=== PATIENT | female | born 1960 | race African-American/Black ===

== ENCOUNTER 2017-02-12 01:42 | Emergency (ER) | payer OTHER ==
[~2017-02-12] VITALS: Ht 165.1 cm; Wt 103.4 kg
[2017-02-12 04:14] VITALS: BP 122/86
--- NOTE | 2017-02-12 04:15 | ED GENERAL ADULT ---
History of Present Illness General Chief Complaint: General Adult Stated Complaint: HIGH BLOOD PER PT Source: patient, old records, EMS Exam Limitations: no limitations Vital Signs & Intake/Output Vital Signs & Intake/Output Vital Signs Date Time Temp Pulse Resp B/P B/P Pulse O2 O2 Flow FiO2 Mean Ox Delivery Rate 02/12 0414 96.8 78 17 122/86 97 Room Air 02/12 0145 97.2 87 20 90/68 97 Room Air Allergies Coded Allergies: lithium (Intermediate, "OUT OF MY MIND" 02/12/17) ibuprofen (Mild, HIVES 02/12/17) Triage Note: PT BIBA FROM HOME. PER EMS, PT STATES SHE HAD A PIECE OF CAKE TONIGHT, CHECKED HER BLOOD SUGAR AND HER GLUCOMETER READ ABOVE 600. PT STATES SHE TRIED TO INJECT HERSELF WITH 56 UNITS OF LEVEMIR, BUT THE NEEDLE BECAME BENT AND SHE WAS UNSURE IF SHE RECEIVED THE INSULIN, SO SHE SUCCESSFULLY INJECTED 56 UNITS AGAIN. PT STATES SHE RECHEKED BS AFTER INSULIN ADMINISTRATION AND GLUCOMETER READ 163 AND THAT IS WHEN SHE DECIDED TO CALL EMS. PT ALERT AND ORIENTED ON ARRIVAL TO ED. BS 144 ON ARRIVAL. PT COMPLAINS OF ABDOMINAL PAIN X A FEW DAYS. Triage Nurses Notes Reviewed? yes Onset: Afternoon Duration: hour(s): Timing: recent history Injury Environment: home Severity: moderate Modifying Factors: Improves With: eating. LMP (ages 10-50): post menopausal : No Patient currently breastfeeds: No HPI: 10 hours prior to admission patient ate cake and felt like her blood sugar was elevated so she injected herself with 56 units of Levemir. She felt that the injection was done inaccurately so she repeated the injection. Several hours prior to admission she registered high blood sugars on 2 different occasions. She ate and drank juice then called EMS. Blood sugar on EMS arrival was 160, 144 in the ED. She denies fever chills nausea vomiting diarrhea abdominal pain chest pain shortness of breath headache dysuria rash bleeding. Past History Travel History Traveled to [place] past 21 day No Medical History Any Pertinent Medical History? see below for history Cardiovascular: hypertension Endocrine: diabetes Surgical History Surgical History: non-contributory Psychosocial History What is your primary language Greenlandic Tobacco Use: Never used Family History Hx Contributory? No Review of Systems Review of Systems Constitutional: Reports: no symptoms. EENTM: Reports: no symptoms. Respiratory: Reports: no symptoms. Cardiovascular: Reports: no symptoms. GI: Reports: no symptoms. Genitourinary: Reports: no symptoms. Musculoskeletal: Reports: no symptoms. Skin: Reports: no symptoms. Neurological/Psychological: Reports: no symptoms. Hematologic/Endocrine: Reports: no symptoms. Immunologic/Allergic: Reports: no symptoms. All Other Systems: Reviewed and Negative Physical Exam Physical Exam General Appearance: well developed/nourished, alert, awake, anxious, mild distress Head: atraumatic, normal appearance Eyes: Bilateral: normal appearance, PERRL, EOMI. Ears, Nose, Throat: normal pharynx, normal ENT inspection Neck: normal inspection, supple, full range of motion, no midline tenderness Respiratory: normal breath sounds, chest non-tender, no respiratory distress, quiet respiration, lungs clear Cardiovascular: regular rate/rhythm, normal peripheral pulses, norml femoral pulses equa Peripheral Pulses: 4+ carotid (R), 4+ carotid (L) Gastrointestinal: normal bowel sounds, soft, non-tender, no organomegaly Back: normal inspection, normal range of motion Extremities: normal inspection, normal capillary refill, normal range of motion, no edema Neurologic/Psych: no motor/sensory deficits, awake, alert, oriented x 3, normal gait, normal mood/affect Reflexes: 2+: bicep (R), bicep (L). Skin: intact, normal color, warm/dry Lymphatic: no anterior cervical drew Core Measures ACS in differential dx? No CVA/TIA Diagnosis: No Severe Sepsis Present: No Septic Shock Present: No Progress Differential Diagnoses I considered the following diagnoses in my evaluation of the patient: Hyperglycemia hypoglycemia Plan of Care: observation frequent FBS checks Initial ED EKG: none Departure Departure Time of Disposition: 414 Disposition: HOME OR SELF CARE Condition: Stable Clinical Impression Primary Impression: Overdose of insulin Qualifiers: Encounter type: initial encounter Injury intent: accidental or unintentional Qualified Code: T38.3X1A - Poisoning by insulin and oral hypoglycemic [antidiabetic] drugs, accidental (unintentional), initial encounter Referrals: UNKNOWN (PCP/Family) Departure Forms: Customer Survey General Discharge Information Critical Care Note Critical Care Note Critical Care Time: non-applicable
== END 2017-02-12 04:33 ==
LOC: ERH 01:42
DX: T38.3X1A Poisoning by insulin and oral hypoglycemic [antidiabetic] drugs, accidental (unintentional), initial encounter (principal)

== ENCOUNTER 2017-11-05 15:21 | Inpatient (IN) | payer OTHER ==
[~2017-11-05] VITALS: Ht 165.1 cm; Wt 107.9 kg
[~2017-11-05 15:21] MED LIST: AMLODIPINE BESY10 M1 PO; CLONAZEPAM0.5 M2 PO; FIBER625 MG PO; HUMALOG KW100 UNIT/1 SC; HYDROCHLOROTHIA50 M1 PO; INVOKANA100 M1 PO; LEVEMIR100 UNIT/1 SC; METFORMIN HCL500 M3 PO; NITRO-DUR1 EACH TOP; PERCOCET 5-3251 EACH PO; PRESERVISION A1 EAC1 PO; PROBIOTIC1 EACH PO; SEROQUEL100 M1 PO; SEROQUEL200 M1 PO; SIMVASTATIN20 M2 PO; TRAZODONE HCL100 M1 PO; VITAMIN C500 M6 PO
--- NOTE | 2017-11-05 15:41 | ED NEURO DEFICIT/STROKE ---
History of Present Illness General Chief Complaint: General Adult Stated Complaint: BIBA FOR FEELING OFF BALANCE AND SLURRED SPEECH Source: patient Vital Signs & Intake/Output Vital Signs & Intake/Output Vital Signs Date Time Temp Pulse Resp B/P B/P Pulse O2 O2 Flow FiO2 Mean Ox Delivery Rate 11/05 1636 Room Air 11/05 1526 98.3 94 18 178/99 99 Room Air Allergies Coded Allergies: lithium (Intermediate, "OUT OF MY MIND" 02/12/17) ibuprofen (Mild, HIVES 02/12/17) adhesive tape (PAPER TAPE CAUSES A RASH - OKAY WITH OTHER TAPES PER PT 05/23/17 ) Reconcile Medications Amlodipine Besylate (Unknown Strength) TABLET (Unknown Dose) PO DAILY HEART ( Reported) Ascorbate Calcium (Vitamin C) (Unknown Strength) TABLET (Unknown Dose) PO DAILY SUPPLEMENT (Reported) Canagliflozin (Invokana) (Unknown Strength) TABLET (Unknown Dose) PO TID DM ( Reported) Clonazepam 0.5 MG TABLET 1 TAB PO TID ANXIETY (Reported) Hydrochlorothiazide 50 MG TABLET 1 TAB PO DAILY BP (Reported) Insulin Detemir (Levemir) 100 UNIT/ML VIAL 46 UNITS SC QPM DM (Reported) Insulin Lispro (Humalog Kwikpen U-100) (Unknown Strength) INSULN.PEN 12 UNITS SC TIDAC DM (Reported) Lactobacillus Acidophilus (Probiotic) (Unknown Strength) CAPSULE (Unknown Dose ) PO DAILY SUPPLEMENT (Reported) Metformin HCl (Unknown Strength) TABLET (Unknown Dose) PO DAILY DM (Reported) Nitroglycerin (Nitro-Dur) 0.2 MG/HOUR PATCH.TD24 1 PATCH TOP DAILY HEART ( Reported) Oxycodone HCl/Acetaminophen (Percocet 5-325 MG Tablet) 5 MG-325 MG TABLET 1-2 TAB PO Q6P PRN PAIN Oxycodone HCl/Acetaminophen (Percocet 5-325 MG Tablet) 5 MG-325 MG TABLET 1 TAB PO BID PRN PAIN Polycarbophil (Fiber) (Unknown Strength) TABLET (Unknown Dose) PO DAILY SUPPLEMENT (Reported) Quetiapine Fumarate (Seroquel) 100 MG TABLET 1 TAB PO BID MENTAL HEALTH ( Reported) Quetiapine Fumarate (Seroquel) 200 MG TABLET 2 TAB PO QHS MENTAL HEALTH ( Reported) Simvastatin (Simvastatin*) (Unknown Strength) TABLET (Unknown Dose) PO QPM CHOLESTEROL (Reported) Trazodone HCl 100 MG TABLET 2 TAB PO QHS MENTAL HEALTH AND SLEEP (Reported) Vit C/E/Zn/Coppr/Lutein/Zeaxan (Preservision Areds 2 Softgel) 250-200-40 CAPSULE 1 CAP PO BID SUPPLEMENT (Reported) Triage Note: PT BIBA FROM HER MD's OFFICE WITH C/O SLURRED SPEECH AND DIZZINESS SINCE WEDNESDAY. PT STATES SHE AWOKE ON WEDNESDAY FEELING LIGHTHEADED AND NAUSEATED. SHE HAD A REGULAR MD APPOINTMENT ON THAT DAY BUT DID NOT ADDRESS IT WITH HIM SHE THOUGHT IT WOULD PASS. SX GRADUALLY WORSENING. PT ARRIVES TODAY WITH SLOW, SLURRED SPEECH, WORD FINDING, SLOW, UNSTEADY GAIT. HYPERTENSIVE. OTHER VSS. IV ACCESS PLACED IN FIELD Past History Travel History Traveled to [place] past 21 day No Medical History Neurological: CVA EENT: NONE Cardiovascular: hypertension Respiratory: obstructive sleep apnea Gastrointestinal: NONE Hepatic: NONE Endocrine: diabetes Surgical History Surgical History: non-contributory Psychosocial History What is your primary language Korean Tobacco Use: Current Daily Use Daily Tobacco Use Amount/Type: => 5 Cigarettes daily ETOH Use: denies use Progress Plan of Care: Orders Procedure Date/time Status Consistent Carbohydrate 1 11/06 B Active ED Holding Orders 11/05 174 Active Admit to inpatient 11/05 174 Active Vital Signs 11/05 174 Active Code Status 11/05 174 Active Patient Data 11/05 174 Active EKG 11/05 1554 Active Telemetry/Vice President Compliance 11/05 1541 Active TROPONIN LEVEL 11/05 1541 Complete COMPREHENSIVE METABOLIC PANEL 11/05 1541 Complete CBC WITHOUT DIFFERENTIAL 11/05 1541 Complete Laboratory Tests 11/05/17 1610: Anion Gap 12, Estimated GFR 57 L, BUN/Creatinine Ratio 13.0, Glucose 145 H, Calcium 10.1, Total Bilirubin 0.3, AST 12 L, ALT 24, Alkaline Phosphatase 67, Troponin I < 0.01, Total Protein 7.4, Albumin 4.5, Globulin 2.9, Albumin/ Globulin Ratio 1.6, CBC w Diff NO MAN DIFF REQ, RBC 4.41, MCV 76.2 L, MCH 24.3 L, MCHC 31.9 L, RDW 14.9 H, MPV 8.8, Gran % 70.9, Lymphocytes % 22.0, Monocytes % 4.8, Eosinophils % 2.0, Basophils % 0.3, Absolute Granulocytes 7.8 H, Absolute Lymphocytes 2.4, Absolute Monocytes 0.5, Absolute Eosinophils 0.2, Absolute Basophils 0 Diagnostic Imaging: Viewed by Me: CT Scan, Ultrasound. Discussed w/RAD: CT Scan, Ultrasound. Radiology Impression: PATIENT: ROYA HAAS PRESENT AGE: 57 PATIENT ACCOUNT NO: [id number] : 60 LOCATION: [facility] ORDERING PHYSICIAN: Verna Doss MD SERVICE DATE: 11/05/17 EXAM TYPE: US - [id number] DOPPLER EXAMINATION: DUPLEX BILATERAL CAROTID ULTRASOUND CLINICAL INFORMATION: Syncope with slurred speech. COMPARISON: None. TECHNIQUE: Duplex bilateral carotid US was performed using real-time ultrasound and Doppler techniques (integrating B-mode 2D vascular images, Doppler spectral analysis and color flow Doppler imaging). These techniques were utilized to interrogate the extracranial carotid and vertebral arteries bilaterally. The degree of stenosis is based off criteria similar to NASCET. FINDINGS: No plaque is seen at the carotid bifurcations or within the internal carotid arteries. All velocities are within normal limits. ADDITIONAL FINDINGS: The vertebral arteries show antegrade flow. The external carotid arteries show no significant stenosis. Subclavian artery waveforms are normal. Intimal medial thickness in the distal common carotid artery on the right is 1.4 mm and on the left is 1.7 mm. IMPRESSION: No evidence of a hemodynamically significant stenosis involving the internal carotid arteries. There is diffuse intimal thickening. DICTATED BY: Tim Rojas MD DATE/TIME DICTATED:11/05/171619 BANKING SPECIALIST:MARY GRACE DATE/TIME TRANSCRIBED:11/05/171619 CONFIDENTIAL, DO NOT COPY WITHOUT APPROPRIATE AUTHORIZATION. <Electronically signed in Other Vendor System> SIGNED BY: Tim Rojas MD 11/05/17 1625, PATIENT: ROYA HAAS PRESENT AGE: 57 PATIENT ACCOUNT NO: [id number] : 60 LOCATION: [facility] ORDERING PHYSICIAN: Verna Doss MD SERVICE DATE: 11/05/171540 EXAM TYPE: CAT - CT HEAD WO IV CONTRAST EXAMINATION: CT HEAD WITHOUT CONTRAST CLINICAL INFORMATION: Slurred speech. Off balance for 3 days. COMPARISON: None TECHNIQUE: Contiguous axial imaging was performed from the skull base to vertex without intravenous administration of contrast. DLP: 619.58 mGy-cm FINDINGS: Small lacunar infarcts in the bilateral thalamic regions. Small lacunar infarct in the central right cerebellum. There is atrophy with prominence of the ventricles and the sulci and hypodensity of the periventricular white matter due to chronic small vessel ischemic disease. There is vascular calcifications of the internal carotid arteries bilaterally. There is no evidence of acute intracranial hemorrhage or acute territorial infarction. No abnormal mass effect or midline shift is seen. Gonzalez to white matter differentiation is well preserved. No extra-axial fluid collections are identified. The osseous structures and soft tissues are normal. The mastoid air cells and visualized portions of the paranasal sinuses are well aerated. IMPRESSION: No acute intracranial pathology. There is atrophy and chronic small vessel ischemic disease. There are old lacunar infarcts in the right central cerebellum as well as small lacunar thalamic infarcts bilaterally. DICTATED BY: Som Miramontes MD DATE/TIME DICTATED:11/05/171710 BANKING SPECIALIST:MARY GRACE DATE/TIME TRANSCRIBED:11/05/171710 CONFIDENTIAL, DO NOT COPY WITHOUT APPROPRIATE AUTHORIZATION. <Electronically signed in Other Vendor System> SIGNED BY: Som Miramontes MD 11/05/171716 Departure Departure Time of Disposition: 1753 Disposition: STILL A PATIENT Condition: Stable Clinical Impression Primary Impression: CVA (cerebral vascular accident) Referrals: Doris George MD (PCP/Family) Departure Forms: Customer Survey General Discharge Information Admission Note Spoke With: Kirsten Becerra MD Documentation of Exam: Documentation of any treatments & extenuating circumstances including Concerns Regarding Discharge (functional status, medication knowledge or non-compliance, living conditions, etc.) that warrant an admission rather than observation: [ TELE MONITOR, NEURO CHECKS, MRI HEAD, NEUROLOGY CONSULTATION, PT CONSULTATION . PATIENT WITH 3 DAYS OF SLURRED SPEECH AND ATAXIA. SHE HAS FALLEN TWICE IN 3 DAYS. WOULD BE MEDICALLY HARMFUL FOR DISCHARGE AT THIS TIME]
[2017-11-05 16:24] LABS: ABSOLUTE BASOPHIL COUNT 0 /CUMM (0.0-0.2); ABSOLUTE EOSINOPHIL COUNT 0.2 /CUMM (0.0-0.7); ABSOLUTE GRANULOCYTE CT 7.8 /CUMM (1.4-6.5); ABSOLUTE LYMPH COUNT 2.4 /CUMM (1.2-3.4); ABSOLUTE MONOCYTE COUNT 0.5 /CUMM (0.10-0.60); BASOPHIL % 0.3 % (0.0-2.0); GRANULOCYTE % 70.9 % (42.2-75.2); HEMATOCRIT 33.6 % (37-47); MEAN CORPUSCULAR HGB 24.3 PG (27.0-31.0); MEAN CORPUSCULAR HGB CONC 31.9 G/DL (33.0-37.0); MEAN CORPUSCULAR VOLUME 76.2 FL (81.0-99.0); MEAN PLATELET VOLUME 8.8 FL (7.4-10.4); PLATELET COUNT 390 /CUMM (130-400); RBC DISTRIBUTION WIDTH 14.9 % (11.5-14.5); RED BLOOD CELL CT 4.41 /CUMM (4.20-5.40); WHITE BLOOD CELL COUNT 11.1 /CUMM (4.8-10.8)
--- NOTE | 2017-11-05 16:25 | ULTRASOUND REPORT ---
EXAMINATION: DUPLEX BILATERAL CAROTID ULTRASOUND CLINICAL INFORMATION: Syncope with slurred speech. COMPARISON: None. TECHNIQUE: Duplex bilateral carotid US was performed using real-time ultrasound and Doppler techniques (integrating B-mode 2D vascular images, Doppler spectral analysis and color flow Doppler imaging). These techniques were utilized to interrogate the extracranial carotid and vertebral arteries bilaterally. The degree of stenosis is based off criteria similar to NASCET. FINDINGS: No plaque is seen at the carotid bifurcations or within the internal carotid arteries. All velocities are within normal limits. ADDITIONAL FINDINGS: The vertebral arteries show antegrade flow. The external carotid arteries show no significant stenosis. Subclavian artery waveforms are normal. Intimal medial thickness in the distal common carotid artery on the right is 1.4 mm and on the left is 1.7 mm. IMPRESSION: No evidence of a hemodynamically significant stenosis involving the internal carotid arteries. There is diffuse intimal thickening.
--- NOTE | 2017-11-05 17:17 | CT SCAN REPORT ---
EXAMINATION: CT HEAD WITHOUT CONTRAST CLINICAL INFORMATION: Slurred speech. Off balance for 3 days. COMPARISON: None TECHNIQUE: Contiguous axial imaging was performed from the skull base to vertex without intravenous administration of contrast. DLP: 619.58 mGy-cm FINDINGS: Small lacunar infarcts in the bilateral thalamic regions. Small lacunar infarct in the central right cerebellum. There is atrophy with prominence of the ventricles and the sulci and hypodensity of the periventricular white matter due to chronic small vessel ischemic disease. There is vascular calcifications of the internal carotid arteries bilaterally. There is no evidence of acute intracranial hemorrhage or acute territorial infarction. No abnormal mass effect or midline shift is seen. Gonzalez to white matter differentiation is well preserved. No extra-axial fluid collections are identified. The osseous structures and soft tissues are normal. The mastoid air cells and visualized portions of the paranasal sinuses are well aerated. IMPRESSION: No acute intracranial pathology. There is atrophy and chronic small vessel ischemic disease. There are old lacunar infarcts in the right central cerebellum as well as small lacunar thalamic infarcts bilaterally.
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
[2017-11-05 20:24] VITALS: BP 130/100
[2017-11-05] MEDS ORDERED: CLONAZEPAM1 M2 PO (22:27)
[2017-11-06] VITALS: BP 168/98
--- NOTE | 2017-11-06 02:33 | Admission Certification ---
Admission Certification Certification Statement - As attending physician, I certify that at the time of - admission, based on clinical presentation, severity of - symptoms, need for further diagnostic testing and - therapeutic interventions, and risk of adverse outcomes - without in-hospital treatment, in my clinical assessment, - this patient requires an acute hospital stay for a minimum - of two nights or longer. I have also considered psychsocial - factors such as support system, advanced age, financial - issues, cognitive issues, and failed out-patient treatments, - past re-admission history, safety of patient, and lack of - compliance as applicable. Specific rationale supporting this admission is: gait abnormality, suspected CVA
[2017-11-06 07:01] VITALS: BP 140/100
[2017-11-06 08:27] LABS: ABSOLUTE BASOPHIL COUNT 0.1 /CUMM (0.0-0.2); ABSOLUTE EOSINOPHIL COUNT 0.5 /CUMM (0.0-0.7); ABSOLUTE GRANULOCYTE CT 5.6 /CUMM (1.4-6.5); ABSOLUTE LYMPH COUNT 3.7 /CUMM (1.2-3.4); ABSOLUTE MONOCYTE COUNT 0.6 /CUMM (0.10-0.60); BASOPHIL % 0.7 % (0.0-2.0); EOSINOPHIL % 4.4 % (0-5); GRANULOCYTE % 53.5 % (42.2-75.2); HEMATOCRIT 33.8 % (37-47); MEAN CORPUSCULAR HGB 24.3 PG (27.0-31.0); MEAN CORPUSCULAR HGB CONC 31.5 G/DL (33.0-37.0); MEAN CORPUSCULAR VOLUME 77.2 FL (81.0-99.0); MEAN PLATELET VOLUME 9.3 FL (7.4-10.4); PLATELET COUNT 396 /CUMM (130-400); RED BLOOD CELL CT 4.38 /CUMM (4.20-5.40)
--- NOTE | 2017-11-06 08:40 | PN- Housestaff ---
Chucky Borden 11/06/17 0839: Subjective Follow-up For: CVA Subjective: Patient reports persistent blurry vision and BLE weakness. No acute events overnight Review of Systems Constitutional: Reports: see HPI. Objective Last 24 Hrs of Vital Signs/I&O Vital Signs Date Time Temp Pulse Resp B/P B/P Pulse O2 O2 Flow FiO2 Mean Ox Delivery Rate 11/06 1407 98.1 82 18 178/102 96 Room Air 11/06 1034 Room Air 11/06 0701 98.5 78 16 140/100 94 Room Air 11/06 0000 168/98 11/06 2023 98.1 83 18 130/100 97 11/05 1942 98.3 89 18 166/89 99 Room Air Intake & Output 11/06 1600 11/06 0800 11/06 0000 Intake Total 400 480 840 Output Total Balance 400 480 840 Intake, Oral 400 480 840 Patient 241 lb 242 lb Weight Weight Bed scale Measurement Method Physical Exam General Appearance: Alert, Oriented X3, Cooperative HEENT: PERRLA Cardiovascular: Regular Rate, Normal S1, Normal S2, No Murmurs, Gallops, Rubs Lungs: Clear to Auscultation, Normal Air Movement Neurological: Strength at 5/5 X4 Ext, Normal Tone, decreased sensation on LLE Current Medications: Current Medications Sig/Sonia Start time Last Medication Dose Route Stop Time Status Admin Acetaminophen 650 MG Q6P PRN 11/05 2215 AC PO Albuterol Sulfate 2 PUF BID 11/06 2200 AC INH Aspirin Buffered 81 MG DAILY 11/06 1000 AC 11/06 PO 1000 Atorvastatin Calcium 80 MG 1700 11/05 2215 AC 11/06 PO 1718 Budesonide/ 2 PUF BID 11/06 1018 AC 10 Formoterol Fumarate INH 1018 Clonazepam 1 MG BID PRN 11/05 2230 AC 10 PO 11/12 2229 1119 Clopidogrel Bisulfate 75 MG DAILY 11/06 1000 AC 11/06 PO 1000 Enoxaparin Sodium 40 MG DAILY 11/06 1000 AC 11/06 SC 1000 Gabapentin 100 MG Q8 11/05 2300 AC 11/06 PO 1500 Hydrochlorothiazide 50 MG DAILY 11/06 1000 AC 11/06 PO 1000 Insulin Aspart 0 AT BEDTIME 11/06 2200 DC SC Insulin Aspart 0 TIDAC 11/06 0800 DC SC Insulin Aspart 0 TIDAC 11/05 2330 AC SC Insulin Aspart 0 AT BEDTIME 11/05 2330 AC SC Insulin Detemir 23 UNITS AT BEDTIME 11/06 2200 AC SC Insulin Detemir 46 UNITS AT BEDTIME 11/05 2245 DC SC Lactobacillus 1 CAP DAILY 11/06 1000 AC 11/06 Acidophilus PO 1000 Montelukast Sodium 10 MG AT BEDTIME 11/05 2300 AC 11/05 PO 2322 Nicotine 21 MG DAILY 11/06 1000 AC 11/06 TOP 1000 Omeprazole 40 MG DAILY AC 11/06 0700 AC 11/06 PO 0604 Oxycodone/ 1 TAB Q6P PRN 11/05 2215 AC 11/06 Acetaminophen PO 1722 Quetiapine Fumarate 400 MG AT BEDTIME 11/05 2245 AC 11/05 PO 232 Quetiapine Fumarate 100 MG BID 11/05 2231 AC 11/06 PO 1000 Trazodone HCl 200 MG .STK-MED ONE 11/05 233 DC PO 11/05 233 Trazodone HCl 200 MG AT BEDTIME 11/05 233 AC 11/05 PO 2336 Last 24 Hrs of Lab/Gal Results Last 24 Hrs of Labs/Mics: Laboratory Tests 11/06/17 0655: Triglycerides 217 H, Cholesterol 124, LDL Cholesterol, Calc 38 L, HDL Cholesterol 43, Cholesterol/HDL Ratio 3, CBC w Diff NO MAN DIFF REQ, RBC 4.38, MCV 77.2 L, MCH 24.3 L, MCHC 31.5 L, RDW 15.0 H, MPV 9.3, Gran % 53.5, Lymphocytes % 35.7, Monocytes % 5.7, Eosinophils % 4.4, Basophils % 0.7, Absolute Granulocytes 5.6, Absolute Lymphocytes 3.7 H, Absolute Monocytes 0.6, Absolute Eosinophils 0.5, Absolute Basophils 0.1 11/06/17 0045: Troponin I < 0.01 Assessment/Plan Assessment: 57-year-old female with past medical history of hypertension, coronary artery disease status post stent, myocardial infarction, obstructive sleep apnea, type 2 diabetes on insulin, CVA, hyperlipidemia, was sent from her primary care physician office with complaints of slurring of speech, unsteady gait and word finding difficulty since past 3 days. Problem 1. Slurring of speech dizziness and gait instability concerning for CVA 2. Multifactorial gait disorder 3. Hypertension 4. Diabetes Mellitus 5. History of coronary artery Plan MRI demonstrated evidence mo acute territorial infarct or hemorrhage. Neurology recommendations appreciated TRC/nebs when necessary Continue atorvastatin 80 mg and Plavix Code-DNR/DNI. Patient has a living will Diet-heart healthy diet DVT prophylaxis-Lovenox Problem List: 1. CVA (cerebral vascular accident) Pain Ratin Pain Location: NA Pain Goal: Remain pain free Pain Plan: NA Tomorrow's Labs & Rationales: BEP, CBC Charla Owens 11/06/17 1419: Attending MD Review Statement Attending Statement Attending MD Statement: examined this patient, discuss w/resident/PA/TOOL DESIGN ENGINEER, agreed w/resident/PA/TOOL DESIGN ENGINEER, reviewed EMR data (avail), discussed with nursing Attending Assessment/Plan: TIA/ Stroke- MRI brain done today shows- "There are chronic cortical infarcts involving the right frontal lobe and the right cerebellar hemisphere. There is chronic small vessel ischemic changes are also visualized within the periventricular white matter. No evidence of acute territorial infarct or hemorrhage." Cont on asa and plavix. f/u on neuro recommendations and will f/u on echo results.
[2017-11-06 10:34] LABS: WHITE BLOOD CELL COUNT 10.4 /CUMM (4.8-10.8)
--- NOTE | 2017-11-06 12:40 | MRI REPORT ---
EXAMINATION: MR BRAIN WITHOUT CONTRAST CLINICAL INFORMATION: Slurred speech. Gait imbalance. History of cerebrovascular accident. COMPARISON: CT scan of the head 11/05/2017. TECHNIQUE: MRI of the brain without contrast was obtained using routine sequences. FINDINGS: There are chronic changes of an old infarct within the right superior frontal gyrus and the right cerebral hemisphere. Numerous chronic small vessel ischemic changes also visualized throughout the periventricular white matter. There is no acute territorial infarct. No pathological magnetic susceptibility artifact. Intracranial vascular flow voids are grossly maintained. There is no intracranial mass effect or midline shift. No abnormal extra-axial collection. Lateral and third ventricles are normal. No hydrocephalus. Midline structures including the cervicomedullary junction are normal. Bone marrow signal intensity is normal. There is no mastoid or middle ear effusion. Visualized paranasal sinuses are well-aerated. Globes and orbits are symmetric. IMPRESSION: There are chronic cortical infarcts involving the right frontal lobe and the right cerebellar hemisphere. There is chronic small vessel ischemic changes are also visualized within the periventricular white matter. No evidence of acute territorial infarct or hemorrhage.
[2017-11-06 14:07] VITALS: BP 178/102
--- NOTE | 2017-11-06 14:51 | Cons- Neurology ---
General Information and HPI Consulting Request Date of Consult: 11/06/17 Requested By: Mani Arana MD History of Present Illness: 57-year-old female with history of prior CVA and residual speech disturbance, largely right sided weakness and imbalance for which she uses a walker or a cane. Approximately one week ago she lost her balance and fell forward, injuring her knee. She was seen thereafter by her orthopedist. She informs me that a knee replacement has been recommended. However, she also states that her speech has been somewhat worse and she ultimately presented to the [facility] for further evaluation. CT scan of the head showed chronic infarcts in the cerebellum and thalami bilaterally. A confirmatory MRI showed a chronic right cerebellar infarct as well as a right frontal infarct which was old. There were no acute abnormalities on diffusion-weighted studies. There is been no fever, chills or rash. Allergies/Medications Allergies: Coded Allergies: lithium (Intermediate, "OUT OF MY MIND" 02/12/17) ibuprofen (Mild, HIVES 02/12/17) adhesive tape (PAPER TAPE CAUSES A RASH - OKAY WITH OTHER TAPES PER PT 05/23/17 ) divalproex sodium (From DEPAKOTE) (HALLUCINATE 11/05/17) tramadol (RASH 11/05/17) Home Med List: Amlodipine Besylate (Unknown Strength) TABLET (Unknown Dose) PO DAILY HEART ( Reported) Ascorbate Calcium (Vitamin C) (Unknown Strength) TABLET (Unknown Dose) PO DAILY SUPPLEMENT (Reported) Canagliflozin (Invokana) (Unknown Strength) TABLET (Unknown Dose) PO TID DM ( Reported) Clonazepam 1 MG TABLET 1 TAB PO BIDP PRN Anxiety (Reported) Hydrochlorothiazide 50 MG TABLET 1 TAB PO DAILY BP (Reported) Insulin Detemir (Levemir) 100 UNIT/ML VIAL 46 UNITS SC QPM DM (Reported) Insulin Lispro (Humalog Kwikpen U-100) (Unknown Strength) INSULN.PEN 12 UNITS SC TIDAC DM (Reported) Lactobacillus Acidophilus (Probiotic) (Unknown Strength) CAPSULE (Unknown Dose ) PO DAILY SUPPLEMENT (Reported) Metformin HCl (Unknown Strength) TABLET (Unknown Dose) PO DAILY DM (Reported) Nitroglycerin (Nitro-Dur) 0.2 MG/HOUR PATCH.TD24 1 PATCH TOP DAILY HEART ( Reported) Oxycodone HCl/Acetaminophen (Percocet 5-325 MG Tablet) 5 MG-325 MG TABLET 1-2 TAB PO Q6P PRN PAIN Oxycodone HCl/Acetaminophen (Percocet 5-325 MG Tablet) 5 MG-325 MG TABLET 1 TAB PO BID PRN PAIN Polycarbophil (Fiber) (Unknown Strength) TABLET (Unknown Dose) PO DAILY SUPPLEMENT (Reported) Quetiapine Fumarate (Seroquel) 100 MG TABLET 1 TAB PO BID MENTAL HEALTH ( Reported) Quetiapine Fumarate (Seroquel) 200 MG TABLET 2 TAB PO QHS MENTAL HEALTH ( Reported) Simvastatin (Simvastatin*) (Unknown Strength) TABLET (Unknown Dose) PO QPM CHOLESTEROL (Reported) Trazodone HCl 100 MG TABLET 2 TAB PO QHS MENTAL HEALTH AND SLEEP (Reported) Vit C/E/Zn/Coppr/Lutein/Zeaxan (Preservision Areds 2 Softgel) 250-200-40 CAPSULE 1 CAP PO BID SUPPLEMENT (Reported) Review of Systems Review of Systems: Notable for knee pain, imbalance, slurring of speech and some right sided weakness. There is been no dysphagia, chest pain, shortness of breath, vertigo, bleeding abnormality, weight loss, fever or chills. 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 FATHER (History of cancer). Psychosocial History Where Do You Live? Home Who Do You Live With? self Services at Home: None Primary Language: Italian Smoking Status: Current Everyday Smoker ETOH Use: denies use Illicit Drug Use: denies illicit drug use Functional Ability ADLs Independent: dressing, eating, toileting, bathing. Ambulation: cane IADLs Independent: shopping, housework, finances, food prep, telephone, transportation , medication admin. Exam & Diagnostic Data Vital Signs and I&O Vital Signs Date Time Temp Pulse Resp B/P B/P Pulse O2 O2 Flow FiO2 Mean Ox Delivery Rate 11/06 1407 98.1 82 18 178/102 96 Room Air 11/06 1034 Room Air 11/06 0701 98.5 78 16 140/100 94 Room Air 11/06 0000 168/98 11/05 2024 98.1 83 18 130/100 97 11/05 1942 98.3 89 18 166/89 99 Room Air 11/05 1756 98.3 83 18 162/90 100 Room Air 11/05 1636 Room Air 11/05 1526 98.3 94 18 178/99 99 Room Air Intake & Output 11/06 1600 11/06 0800 11/06 0000 Intake Total 480 840 Output Total Balance 480 840 Intake, Oral 480 840 Patient 241 lb 242 lb Weight Weight Bed scale Measurement Method Middle-aged female awake and alert, sitting up in a chair, in no acute distress. Higher cortical function was grossly intact. Speech was fluent. Pupils are equal. Extraocular movements were full. There was no field cut. Minor right facial asymmetry and minimal dysarthria was noted. There was no drift of the upper extremities or gross lateralizing weakness. Deep tendon reflexes were symmetric. Plantar responses were flexor. Fine finger movements were performed adequately. There was no ataxia on [id number] testing. Gait was not evaluated. Carotid ultrasound showed no significant stenoses. Assessment/Plan Assessment: It appears that Ms. Bolden is demonstrating recrudescence of prior symptoms relative to old stroke. This may be precipitated by trauma, medications such as narcotic analgesics and/or soporific/tranquilizing agents. Imaging shows no evidence of acute stroke. She presented 3 days after symptom onset; one would think that scans would be positive at that time. Recommendations: The patient states that she had been on Plavix. This was not listed in her list of home medications. If so, she should be continued on an antiplatelet agent and if not already on board, a statin would also be indicated for secondary stroke prevention. She should be seen by physical and occupational therapy. No further neurodiagnostic studies are currently anticipated. We will be able to follow on a when necessary basis. Please feel free to call with any further questions. Consult Acknowledgment - Thank you for your consult request.
[2017-11-06 22:54] VITALS: BP 160/98
[2017-11-07 06:49] VITALS: BP 148/74
[2017-11-07 07:52] LABS: ABSOLUTE BASOPHIL COUNT 0.1 /CUMM (0.0-0.2); ABSOLUTE EOSINOPHIL COUNT 0.4 /CUMM (0.0-0.7); ABSOLUTE GRANULOCYTE CT 5.8 /CUMM (1.4-6.5); ABSOLUTE LYMPH COUNT 3.4 /CUMM (1.2-3.4); ABSOLUTE MONOCYTE COUNT 0.6 /CUMM (0.10-0.60); BASOPHIL % 0.5 % (0.0-2.0); EOSINOPHIL % 4.3 % (0-5); GRANULOCYTE % 56.4 % (42.2-75.2); HEMATOCRIT 33.6 % (37-47); MEAN CORPUSCULAR HGB 24.4 PG (27.0-31.0); MEAN CORPUSCULAR HGB CONC 31.8 G/DL (33.0-37.0); MEAN CORPUSCULAR VOLUME 76.7 FL (81.0-99.0); MEAN PLATELET VOLUME 8.9 FL (7.4-10.4); PLATELET COUNT 389 /CUMM (130-400); RBC DISTRIBUTION WIDTH 14.8 % (11.5-14.5); RED BLOOD CELL CT 4.38 /CUMM (4.20-5.40); WHITE BLOOD CELL COUNT 10.3 /CUMM (4.8-10.8)
[2017-11-07 15:15] VITALS: BP 168/102
--- NOTE | 2017-11-07 15:25 | PN- Att Addend ---
Attending MD Review Statement Attending Statement Attending MD Statement: examined this patient, discuss w/resident/PA/OWNER MANAGER, agreed w/resident/PA/OWNER MANAGER, reviewed EMR data (avail), discussed w/nursing Attending Assessment/Plan: Pt seen and examined at bedside. ROS- denies chest pain. sob, cough or fever. No abdominal pain , nausea or vomiting. No headache. Expressed feeling depressed and wants to see psychiatry. Physical exam- Alert and oriented. CVS- no murmur. CLINICAL SOCIAL WORKER- alert , CN grossly intact. Abdomen - soft and non tender. Laboratory Tests 11/07/17 0654: Anion Gap 11, Estimated GFR 42 L, BUN/Creatinine Ratio 13.8, CBC w Diff NO MAN DIFF REQ, RBC 4.38, MCV 76.7 L, MCH 24.4 L, MCHC 31.8 L, RDW 14.8 H, MPV 8.9 , Gran % 56.4, Lymphocytes % 32.7, Monocytes % 6.1, Eosinophils % 4.3, Basophils % 0.5, Absolute Granulocytes 5.8, Absolute Lymphocytes 3.4, Absolute Monocytes 0.6, Absolute Eosinophils 0.4, Absolute Basophils 0.1 Vital Signs Date Time Temp Pulse Resp B/P B/P Pulse O2 O2 Flow FiO2 Mean Ox Delivery Rate 11/07 0649 97.8 72 20 148/74 95 Room Air 11/07 0000 CPAP 11/06 2254 97.7 69 20 160/98 93 BIPAP 11/06 2237 78 92 TIA- cont on as / plavix and lipitor. echo pending. rest of workup for stroke negative. Depression- will get psych consult in am. d/w pt the care plan.
[2017-11-07] MEDS ORDERED: RESTASIS1 EACH OPH (16:20)
--- NOTE | 2017-11-07 16:40 | PN- Housestaff ---
Subjective Follow-up For: CVA Tele-Events Since Last Visit: Normal sinus rhythm 70-80 Subjective: patient was seen and examined She is alert awake and oriented to time place and person No acute events overnight Patient denies any new neurologic deficits. However she reports lower extremity weakness. Denies any headache. Patient states that she was depressed. Denies any suicidal or homicidal thoughts. Patient is willing to see a psychiatrist. Review of Systems Constitutional: Reports: see HPI. Objective Last 24 Hrs of Vital Signs/I&O Vital Signs Date Time Temp Pulse Resp B/P B/P Pulse O2 O2 Flow FiO2 Mean Ox Delivery Rate 11/07 1515 97.2 94 20 168/102 97 Room Air 11/07 0649 97.8 72 20 148/74 95 Room Air 11/07 0000 CPAP 11/06 2254 97.7 69 20 160/98 93 BIPAP 11/06 2237 78 92 Intake & Output 11/07 1600 11/07 0800 11/07 0000 Intake Total 120 490 Output Total 0 Balance 120 490 Intake, IV 10 Intake, Oral 120 480 Number 0 Bowel Movements Output, Urine 0 Physical Exam General Appearance: Alert, Oriented X3, Cooperative, No Acute Distress Other Physical Findings: HEENT: PERRLA Cardiovascular: Regular Rate, Normal S1, Normal S2, No Murmurs, Gallops, Rubs Lungs: Clear to Auscultation, Normal Air Movement Neurological: Strength at 5/5 X4 Ext, Normal Tone, decreased sensation on LLE Current Medications: Current Medications Sig/Sonia Start time Last Medication Dose Route Stop Time Status Admin Acetaminophen 650 MG Q6P PRN 11/05 2215 AC PO Albuterol Sulfate 2 PUF BID 11/06 2200 AC 11/07 INH 0933 Aspirin Buffered 81 MG DAILY 11/06 1000 AC 11/07 PO 0930 Atorvastatin Calcium 80 MG 1700 11/05 2215 AC 11/06 PO 1718 Budesonide/ 2 PUF BID 11/06 1018 AC 11/07 Formoterol Fumarate INH 0933 Clonazepam 1 MG BID PRN 11/05 2230 AC 11/07 PO 11/12 2229 1215 Clopidogrel Bisulfate 75 MG DAILY 11/06 1000 AC 11/07 PO 0932 Enoxaparin Sodium 40 MG DAILY 11/06 1000 AC 11/07 SC 0932 Gabapentin 100 MG Q8 11/05 2300 AC 11/07 PO 0601 Hydrochlorothiazide 50 MG DAILY 11/06 1000 AC 11/07 PO 0932 Insulin Aspart 0 TIDAC 11/05 2330 AC 11/07 SC 1238 Insulin Aspart 0 AT BEDTIME 11/05 2330 AC SC Insulin Detemir 23 UNITS AT BEDTIME 11/06 2200 AC 11/06 SC 2322 Lactobacillus 1 CAP DAILY 11/06 1000 AC 11/07 Acidophilus PO 0932 Montelukast Sodium 10 MG AT BEDTIME 11/05 2300 AC 11/06 PO 2322 Nicotine 21 MG DAILY 11/06 1000 AC 11/07 TOP 0932 Non-Formulary 0 SEE ADMIN CRITERIA 11/07 1630 UNVr Medication ANY Omeprazole 40 MG DAILY AC 11/06 0700 AC 11/07 PO 0601 Oxycodone/ 1 TAB Q6P PRN 11/05 2215 AC 11/07 Acetaminophen PO 0602 Quetiapine Fumarate 400 MG AT BEDTIME 11/05 2245 AC 11/06 PO 2322 Quetiapine Fumarate 100 MG BID 11/05 2231 AC 11/07 PO 0933 Sodium Chloride 1,000 ML Q20H 11/07 1645 UNVr IV 11/08 1244 Trazodone HCl 200 MG AT BEDTIME 11/05 2330 AC 11/06 PO 2322 Last 24 Hrs of Lab/Gal Results Last 24 Hrs of Labs/Mics: Laboratory Tests 11/07/17 0654: Anion Gap 11, Estimated GFR 42 L, BUN/Creatinine Ratio 13.8, CBC w Diff NO MAN DIFF REQ, RBC 4.38, MCV 76.7 L, MCH 24.4 L, MCHC 31.8 L, RDW 14.8 H, MPV 8.9 , Gran % 56.4, Lymphocytes % 32.7, Monocytes % 6.1, Eosinophils % 4.3, Basophils % 0.5, Absolute Granulocytes 5.8, Absolute Lymphocytes 3.4, Absolute Monocytes 0.6, Absolute Eosinophils 0.4, Absolute Basophils 0.1 Assessment/Plan Assessment: 57-year-old female with past medical history of hypertension, coronary artery disease status post stent, myocardial infarction, obstructive sleep apnea, type 2 diabetes on insulin, CVA, hyperlipidemia, was sent from her primary care physician office with complaints of slurring of speech, unsteady gait and word finding difficulty since past 3 days. Problem 1. Slurring of speech and gait instability concerning for CVA 2. Multifactorial gait disorder 3. Hypertension 4. Diabetes Mellitus 5. History of coronary artery Plan MRI demonstrated evidence mo acute territorial infarct or hemorrhage. Neurology recommendations appreciated TRC/nebs when necessary Continue atorvastatin 80 mg and Plavix/aspirin Code-DNR/DNI. Patient has a living will Diet-heart healthy diet DVT prophylaxis-Lovenox echo pending Depression Patient states that she was depressed this morning. Denies any suicidal or homicidal thoughts. Psychiatrist consult was requested. Will follow-up with psychiatrist recs. cr 1.3, gentle hydration, repeat lab tomorrow Problem List: 1. CVA (cerebral vascular accident) Pain Ratin Pain Location: n/a Pain Goal: Remain pain free Pain Plan: anibalinol Tomorrow's Labs & Rationales: bep
[2017-11-07 22:57] VITALS: BP 128/70
--- NOTE | 2017-11-08 07:28 | PN- Housestaff ---
See Addendum Subjective Follow-up For: Gait instability Tele-Events Since Last Visit: SR, first deg AVB, PVC HR 77-90 Subjective: Patient reports KOLB 9/10, Double vision and burning sensation in feet. No acute events Review of Systems Constitutional: Reports: see HPI. Objective Last 24 Hrs of Vital Signs/I&O Vital Signs Date Time Temp Pulse Resp B/P B/P Pulse O2 O2 Flow FiO2 Mean Ox Delivery Rate 11/08 0730 97.6 78 20 116/68 95 Room Air 11/08 0000 CPAP 11/07 2257 98.0 85 20 128/70 95 11/07 1515 97.2 94 20 168/102 97 Room Air Intake & Output 11/08 1600 11/08 0800 11/08 0000 Intake Total 470 680 Output Total Balance 470 680 Intake, IV 350 200 Intake, Oral 120 480 Patient 238 lb Weight Physical Exam General Appearance: Alert, Oriented X3, Cooperative, No Acute Distress HEENT: Atraumatic, PERRLA, EOMI Cardiovascular: Regular Rate, Normal S1, Normal S2, No Murmurs, Gallops, Rubs Lungs: Clear to Auscultation, Normal Air Movement Extremities: Decreased sensation on LLE Current Medications: Current Medications Sig/Sonia Start time Last Medication Dose Route Stop Time Status Admin Acetaminophen 650 MG .STK-MED ONE 11/07 215 DC PO 11/07 220 Acetaminophen 650 MG Q6P PRN 11/05 2215 AC 11/08 PO 0857 Albuterol Sulfate 2 PUF BID 11/06 2200 AC 11/08 INH 0859 Aspirin Buffered 81 MG DAILY 11/06 1000 AC 11/08 PO 0859 Atorvastatin Calcium 80 MG 1700 11/05 2215 AC 11/07 PO 1753 Budesonide/ 2 PUF BID 11/06 1018 AC 11/08 Formoterol Fumarate INH 0859 Clonazepam 1 MG BID PRN 11/05 2230 AC 11/07 PO 11/12 2229 1215 Clopidogrel Bisulfate 75 MG DAILY 11/06 1000 AC 11/08 PO 0858 Cyclosporine 1 GTT BID 11/07 2200 AC 11/08 OPH 0857 Enoxaparin Sodium 40 MG DAILY 11/06 1000 AC 11/08 SC 0857 Gabapentin 100 MG Q8 11/05 2300 AC 11/08 PO 0628 Hydrochlorothiazide 50 MG DAILY 11/06 1000 AC 11/08 PO 0858 Insulin Aspart 0 TIDAC 11/05 2330 AC 11/08 SC 0856 Insulin Aspart 0 AT BEDTIME 11/05 2330 AC SC Insulin Detemir 23 UNITS AT BEDTIME 11/06 2200 AC 11/07 SC 2146 Lactobacillus 1 CAP DAILY 11/06 1000 AC 11/08 Acidophilus PO 0858 Montelukast Sodium 10 MG AT BEDTIME 11/05 2300 AC 11/07 PO 2147 Nicotine 21 MG DAILY 11/06 1000 AC 11/08 TOP 0857 Omeprazole 40 MG DAILY AC 11/06 0700 AC 11/08 PO 0628 Oxycodone/ 1 TAB Q6P PRN 11/05 2215 AC 11/08 Acetaminophen PO 0032 Quetiapine Fumarate 400 MG AT BEDTIME 11/05 2245 AC 11/07 PO 2147 Quetiapine Fumarate 100 MG BID 11/05 2231 AC 11/08 PO 0859 Sertraline HCl 50 MG DAILY 11/08 1151 AC 11/08 PO 1238 Sodium Chloride 1,000 ML Q20H 11/07 1645 DC 11/07 IV 11/08 1244 1755 Trazodone HCl 200 MG AT BEDTIME 11/05 2330 AC 11/07 PO 2146 Last 24 Hrs of Lab/Gal Results Last 24 Hrs of Labs/Mics: Laboratory Tests 11/08/17 0620: Anion Gap 10, Estimated GFR 46 L, BUN/Creatinine Ratio 13.3 Assessment/Plan Assessment: 57-year-old female with past medical history of hypertension, coronary artery disease status post stent, myocardial infarction, obstructive sleep apnea, type 2 diabetes on insulin, CVA, hyperlipidemia, was sent from her primary care physician office with complaints of slurring of speech, unsteady gait and word finding difficulty since past 3 days. Problem 1. Slurring of speech dizziness and gait instability 2. Multifactorial gait disorder 3. Hypertension 4. Diabetes Mellitus 5. History of coronary artery 6. Depression Plan MRI demonstrated evidence no acute territorial infarct or hemorrhage Neurology recommendations appreciated TRC/nebs when necessary Continue atorvastatin 80 mg and Plavix Start Sertraline 50 mg for depression Patient will require outpatient Psych ECHO pending Code-DNR/DNI. Patient has a living will Diet-heart healthy diet DVT prophylaxis-Lovenox Problem List: 1. Gait instability Pain Ratin Pain Location: KOLB Pain Goal: Pain 4 or less Pain Plan: Acetaminophen Tomorrow's Labs & Rationales: None
[2017-11-08 07:30] VITALS: BP 116/68
[2017-11-08] MEDS ORDERED: NICOTINE PATCH1 EAC3 TOP (12:20)
[2017-11-08] MEDS ORDERED: PLAVIX75 M1 PO (12:20)
[2017-11-08] MEDS ORDERED: SERTRALINE HCL50 MG PO (12:20)
[2017-11-08] MEDS ORDERED: OMEPRAZOLE20 M2 PO (12:20)
[2017-11-08] MEDS ORDERED: GABAPENTIN100 M2 PO (12:20)
[2017-11-08] MEDS ORDERED: ATORVASTATIN CA80 M1 PO (12:20)
[2017-11-08] MEDS ORDERED: ASPIRIN EC81 M1 PO (12:20)
--- NOTE | 2017-11-08 12:24 | Patient Discharge Instructions ---
Discharge Instructions General Discharge Information You were seen/treated for: Gait instability You had these procedures: none Special Instructions: Follow up with Psychiatry upon discharge Pt has an appt with outpatient psych for an intake on [address] [place] [address] with Shila TIMOTHY at 11:30a. She should arrive at 11:15 with ID, insurance card. We started you on a new medications. Follow up with your PCP within 1 week after discharge Diet Recommended Diet: Diabetic Activity Other activity limits: As tolerated Acute Coronary Syndrome Inclusion Criteria At DC or during hospital stay patient has or had the following: ACS DIAGNOSIS No Discharge Core Measures Meds if any: Prescribed or Continued at Discharge Meds if any: NOT Prescribed or Continued at Discharge Congestive Heart Failure Inclusion Criteria At DC or during hospital stay patient has or had the following: CHF DIAGNOSIS No Discharge Core Measures Meds if any: Prescribed or Continued at Discharge Meds if any: NOT Prescribed or Continued at Discharge Cerebrovascular accident Inclusion Criteria At DC or during hospital stay patient has or had the following: CVA/TIA Diagnosis No Discharge Core Measures Meds if any: Prescribed or Continued at Discharge Meds if any: NOT Prescribed or Continued at Discharge Venous thromboembolism Inclusion Criteria VTE Diagnosis No VTE Type NONE VTE Confirmed by (Test) NONE Discharge Core Measures - Per Current guidelines, there needs to be overlap - treatment for the first 5 days of Warfarin therapy. - If discharged on Warfarin prior to 5 days of - overlap therapy, the patient will need to be - assessed for post discharge needs including - *Post discharge parental anticoagulation - *Warfarin and/or parental anticoagulation education - *Follow up date to check INR post discharge At least 5 days overlap therapy as Inpatient No Meds if any: Prescribed or Continued at Discharge Note: Overlap Therapy is Warfarin and Anticoagulant Meds if any: NOT Prescribed or Continued at Discharge
--- NOTE | 2017-11-08 12:33 | Cons- Psychiatry ---
Psychiatric Consult Date of Consult: 11/08/17 Reason for Consult: depression Allergies: Coded Allergies: lithium (Intermediate, "OUT OF MY MIND" 02/12/17) ibuprofen (Mild, HIVES 02/12/17) adhesive tape (PAPER TAPE CAUSES A RASH - OKAY WITH OTHER TAPES PER PT 05/23/17 ) divalproex sodium (From DEPAKOTE) (HALLUCINATE 11/05/17) tramadol (RASH 11/05/17) Past History Past Medical History Neurological: CVA EENT: NONE Cardiovascular: hypertension Respiratory: obstructive sleep apnea Gastrointestinal: NONE Hepatic: NONE Renal: NONE Musculoskeletal: NONE Psychiatric: NONE Endocrine: diabetes Blood Disorders: NONE Cancer(s): NONE TIMBER KILLER/Reproductive: NONE Past Surgical History Surgical History: arthroscopy, Assessment/Plan Impression: Pt is a 57 year old F with PMH CAD, CVA, AZ, DMII, ROBBIN, GERD, bronchitis, DJD and depression who was sent to referred by her PCP for slurred speech, double vision, unsteady gait with recent fall. No JONNY, no seizure. Residual right sided weakness and word finding difficulty since last CVA three years ago. Pt reports feeling severely depressed for four months. Reports depressed mood, anergia, insomnia, amotivation, isolating, poor appetite. Fleeting SI but no plan or intent. Denies richar, endorses trauma in childhood and adulthood. She "won't let herself go there" because she has grandchildren and great grandchildren who need her. Pt reports VH of "many things" only in context of her depressive episodes. Reports stressors as financial, living circumstances, poor social support, grandson who "uses her." Pt states she has "the curse" mental illness runs through her family. No AH, SI, HI at this time. She feels she can care for herself at home and is amenable to outpatient treatment and trial of SSRI. Past psych hx: Vaguely relates psychiatric care in her teens, some outpatient care in [place], she does not know names or past med trials. She is unclear why she is on seroquel, makes her drowsy. No suicide attempts. No inpatient hospitalizations. Family: States many generations of mentally ill in her family including institutionalization of her grandmother. Depression in many individuals. Sister attempted suicide. Social: Lives with family in [place], many drug-addicted individuals, she is fearful of living there but no safety concerns in her own home. MSE Obese pt in bed in [facility] appearing stated age in NAD. She has significant psychomotor retardation. Speech is clear but long latency. Mood is depressed. Affect severely depressed. TP circumstantial TC depressive cognitions, stressors Insight Aware of depression, not feeling herself Judgment Amenable to treatment A/ 57 y/o F with multiple medical problems who presents with severe untreated depression and multiple stressors. P/ Discussed R/B/SEs of starting SSRI, zoloft, 50 mg qDaily. Pt has an appt with outpatient psych for an intake on [address] [place] [address] with Shila COLOR ARTIST at 11:30a. She should arrive at 11:15 with ID, insurance card. Ricarda Gaona MD Please page #[phone] with any questions
[2017-11-08 14:50] VITALS: BP 120/70
--- NOTE | 2017-11-08 16:01 | Discharge Summary ---
Visit Information Visit Dates Admission Date: 11/05/17 Discharge Date: 11/09/17 Hospital Course Course Attending Physician: Graciela ALAMO,Charla Vergara Primary Care Physician: Doris ALAMO,Doris [facility] Course: Ms. Bolden is a 57-year-old female with past medical history of hypertension, coronary artery disease status post stent, myocardial infarction, obstructive sleep apnea, type 2 diabetes on insulin, CVA, hyperlipidemia, was sent from her primary care physician office with complaints of slurring of speech, unsteady gait and word finding difficulty since past 3 days. Labs on admission: WBC 11.1, hemoglobin 10.7, platelet count 390, sodium 143, potassium 4.6, BUN 13, creatinine 1, calcium 10.1, troponin 0.01 Problem 1. Gait instability 2. Depression Neurology was consulted for suspicion of CVA. ECHO was done to rule out a possible source. She was started on Atorvastatin [address] head was negative for acute pathology. Carotid ultrasound showed no significanct stenoses. MRI demonstrated evidence no acute territorial infarct or hemorrhage. Her Nitroglycerin was stopped due to complaints of headache. She reported depression during her hospital stay and Psych was consulted. She was started Sertraline 50 mg for depression and instructed to follow up as an outpatient Allergies: Coded Allergies: lithium (Intermediate, "OUT OF MY MIND" 02/12/17) ibuprofen (Mild, HIVES 02/12/17) adhesive tape (PAPER TAPE CAUSES A RASH - OKAY WITH OTHER TAPES PER PT 05/23/17 ) divalproex sodium (From DEPAKOTE) (HALLUCINATE 11/05/17) tramadol (RASH 11/05/17) Pertinent Lab Results: 11/05/17-154 [id number] DOPPLER FINDINGS: No plaque is seen at the carotid bifurcations or within the internal carotid arteries. All velocities are within normal limits. ADDITIONAL FINDINGS: The vertebral arteries show antegrade flow. The external carotid arteries show no significant stenosis. Subclavian artery waveforms are normal. Intimal medial thickness in the distal common carotid artery on the right is 1.4 mm and on the left is 1.7 mm. IMPRESSION: No evidence of a hemodynamically significant stenosis involving the internal carotid arteries. There is diffuse intimal thickening. 11/05/17-154 CT HEAD WO IV CONTRAST IMPRESSION: No acute intracranial pathology. There is atrophy and chronic small vessel ischemic disease. There are old lacunar infarcts in the right central cerebellum as well as small lacunar thalamic infarcts bilaterally. 11/06/17 MRI-HEAD W/O KARLIE IMPRESSION: There are chronic cortical infarcts involving the right frontal lobe and the right cerebellar hemisphere. There is chronic small vessel ischemic changes are also visualized within the periventricular white matter. No evidence of acute territorial infarct or hemorrhage. 11/08/17 ECHOCARDIOGRAM CONCLUSIONS Normal LV chamber size with mild concentric LVH. The estimated lvEF is 55%. there are no focal wall motion abnormalities. the diastolic filling pattern is consistent with mild diastolic dysfunction. There is trace mitral regurgitation. There is no intracardiac shunt by color flow doppler Disposition Summary Disposition Principal Diagnosis: Gait instability Additional Diagnosis: depression Discharge Disposition: home or self care Discharge Instructions General Discharge Information Code Status: Do Not Resucitate/Intubat Patient's Diet: Diabetic Patient's Activity: As tolerated Follow-Up Instructions/Appts: Follow up with Psychiatry upon discharge Pt has an appt with outpatient psych for an intake on [address] [place] [address] with [facility] at 11:30a. She should arrive at 11:15 with ID, insurance card. We started you on a new medications. Follow up with your PCP within 1 week after discharge Medications at Discharge Discharge Medications: Stop taking the following medications: Nitroglycerin (Nitro-Dur) 0.2 MG/HOUR PATCH.TD24 On the skin DAILY Simvastatin (Simvastatin*) (Unknown Strength) TABLET ORAL Every night Continue taking these medications: Quetiapine Fumarate (Seroquel) 100 MG TABLET 1 Tablet ORAL TWICE DAILY Comments: Last Taken:11/09/17 Time:1000 Quetiapine Fumarate (Seroquel) 200 MG TABLET 2 Tablet ORAL TAKE AT BEDTIME Comments: Last Taken:11/08/17 Time:2200 Trazodone HCl (Trazodone HCl) 100 MG TABLET 2 Tablet ORAL TAKE AT BEDTIME Comments: Last Taken:11/08/17 Time:2200 Hydrochlorothiazide (Hydrochlorothiazide) 50 MG TABLET 1 Tablet ORAL DAILY Comments: Last Taken:11/09/17 Time:0900 Amlodipine Besylate (Amlodipine Besylate) (Unknown Strength) TABLET Unknown Dose ORAL DAILY Instructions: . Canagliflozin (Invokana) (Unknown Strength) TABLET Unknown Dose ORAL THREE TIMES DAILY Metformin HCl (Metformin HCl) (Unknown Strength) TABLET Unknown Dose ORAL DAILY Vit C/E/Zn/Coppr/Lutein/Zeaxan (Preservision Areds 2 Softgel) 250-200-40 CAPSULE 1 Capsule ORAL TWICE DAILY Ascorbate Calcium (Vitamin C) (Unknown Strength) TABLET Unknown Dose ORAL DAILY Lactobacillus Acidophilus (Probiotic) (Unknown Strength) CAPSULE Unknown Dose ORAL DAILY Comments: Last Taken:11/09/17 Time:1000 Polycarbophil (Fiber) (Unknown Strength) TABLET Unknown Dose ORAL DAILY Insulin Detemir (Levemir) 100 UNIT/ML VIAL 46 Units Inject into fatty tissue Every night Comments: Last Taken:11/08/17 Time:2200 Insulin Lispro (Humalog Kwikpen U-100) (Unknown Strength) INSULN.PEN 12 Units Inject into fatty tissue 3 TIMES DAILY BEFORE MEALS Comments: Last Taken:11/09/17 Time:0900 Oxycodone HCl/Acetaminophen (Percocet 5-325 MG Tablet) 5 MG-325 MG TABLET 1-2 Tablet ORAL EVERY SIX HOURS NEEDED as needed for PAIN Qty = 10 Oxycodone HCl/Acetaminophen (Percocet 5-325 MG Tablet) 5 MG-325 MG TABLET 1 Tablet ORAL TWICE DAILY as needed for PAIN Qty = 10 Clonazepam (Clonazepam) 1 MG TABLET 1 Tablet ORAL 2 x Daily as needed as needed for Anxiety Qty = 40 Comments: Last Taken:11/09/17 Time:0600 Cyclosporine (Restasis) 0.05 % DROPERETTE 1 Drop In the eye TWICE DAILY Qty = 60 Comments: Last Taken:11/09/17 Time:0900 Start taking the following new medications: Nicotine (Nicotine Patch) 21 MG/24 HOUR PATCH.TD24 21 Milligram On the skin DAILY Qty = 7 No Refills Comments: Last Taken:11/09/17 Time:1000 Clopidogrel Bisulfate (Plavix) 75 MG TABLET 75 Milligram ORAL DAILY Qty = 30 No Refills Comments: Last Taken:11/09/17 Time:1000 Atorvastatin Calcium (Atorvastatin Calcium) 80 MG TABLET 40 Milligram ORAL 5 PM Qty = 30 No Refills Comments: Last Taken:11/08/17 Time:1700 Aspirin (Ecotrin*) 81 MG TABLET.DR 81 Milligram ORAL DAILY Qty = 30 No Refills Comments: Last Taken:11/09/17 Time:1000 Gabapentin (Gabapentin) 100 MG CAPSULE 100 Milligram ORAL EVERY 8 HOURS Qty = 90 No Refills Comments: Last Taken:11/09/17 Time:0600 Sertraline HCl (Sertraline HCl) 50 MG TABLET 50 Milligram ORAL DAILY Qty = 30 No Refills Comments: Last Taken:11/09/17 Time:1200 Omeprazole (Omeprazole) 20 MG CAPSULE.DR 40 Milligram ORAL DAILY BEFORE BREAKFAST Qty = 30 No Refills Comments: Last Taken:11/09/17 Time:0700 Copies To: Garrett ALAMO,Darrick Vergara; Doris ALAMO,Doris; Camille ALAMO,Ricarda
--- NOTE | 2017-11-08 19:11 | ECHOCARDIOGRAM REPORT ---
WALDO HUSAMGALILEA Age: 57 : 1960 Gender: F Exam Date: 11/08/2017 09:33 Exam Location: [address] Ht (in): 65 Wt (lb): 238 BSA: 2.28 BP: 148 / 74 Ordering Physician: Blanca Thomas MD Referring Physician: Blanca Thomas MD Technologist: Franklin Avitia RDCS Room Number: Indications: STROKE Rhythm: Technical Quality: FINDINGS Left Ventricle Normal LV chamber size with mild concentric LVH. The estimated lvEF is 55%. there are no focal wall motion abnormalities. the diastolic filling pattern is consistent with mild diastolic dysfunction. Right Ventricle normal appearing right ventricle Right Atrium Normal appearing right atrium Left Atrium Normal appearing left atrium Mitral Valve normal appearing mitral valvular leaflets, structure and function. There is trace mitral regurgitation. Aortic Valve Normal appearing trileaflet aortic valve Tricuspid Valve normal appearing tricuspid valve leaflets structure and function. Pulmonic Valve Normal appearing pulmonic valve leaflet structure and function Pericardium Normal pericardium Great Vessels Normal great vessels CONCLUSIONS Normal LV chamber size with mild concentric LVH. The estimated lvEF is 55%. there are no focal wall motion abnormalities. the diastolic filling pattern is consistent with mild diastolic dysfunction. There is trace mitral regurgitation. There is no intracardiac shunt by color flow doppler Edgard Baca M.D. (Electronically Signed) Final Date: 08 November 2017 19:10 MEASUREMENTS (Male / Female) Normal Values 2D ECHO LV Diastolic Diameter PLAX 4.9 cm 4.2 - 5.9 / 3.9 - 5.3 cm LV Systolic Diameter PLAX 2.7 cm 2.1 - 4.0 cm LV Fractional Shortening PLAX 44.9 % 25 - 46 % LV Ejection Fraction 2D Teich 76.1 % IVS Diastolic Thickness 1.2 cm LVPW Diastolic Thickness 1.2 cm LV Relative Wall Thickness 0.5 RV Internal Dim ED PLAX 3.1 cm 1.9 - 3.8 cm LVOT Diameter 1.8 cm Aortic Root Diameter 2.6 cm LA Systolic Diameter LX 2.9 cm 3.0 - 4.0 / 2.7 - 3.8 cm LA Volume 33.0 cm 18 - 58 / 22 - 52 cm Ascending Aorta Diameter 2.8 cm DOPPLER AV Peak Velocity 145.0 cm/s AV Peak Gradient 8.4 mmHg AV Mean Velocity 103.0 cm/s AV Mean Gradient 5.0 mmHg AV Velocity Time Integral 28.6 cm LVOT Peak Velocity 88.7 cm/s LVOT Peak Gradient 3.1 mmHg LVOT Mean Velocity 64.6 cm/s LVOT Mean Gradient 2.0 mmHg LVOT Velocity Time Integral 21.1 cm LVOT Stroke Volume 53.7 cm AV Area Cont Eq vti 1.9 cm AV Area Cont Eq pk 1.6 cm MV Peak Velocity 109.0 cm/s MV Peak Gradient 4.8 mmHg MV Mean Velocity 73.4 cm/s MV Mean Gradient 2.0 mmHg Mitral E Point Velocity 68.1 cm/s Mitral A Point Velocity 103.0 cm/s Mitral E to A Ratio 0.7 MV PHT Velocity 100.0 cm/s MV Deceleration Stone 250.0 cm/s MV Pressure Half Time 120.0 ms MV Area PHT 1.8 cm MV Deceleration Time 394.0 ms PV Peak Velocity 105.0 cm/s PV Peak Gradient 4.4 mmHg PV Mean Velocity 70.6 cm/s PV Mean Gradient 2.0 mmHg PV Velocity Time Integral 21.6 cm LV E' Lateral Velocity 6.8 cm/s Mitral E to LV E' Lateral Ratio 10.0 LV E' Septal Velocity 5.1 cm/s Mitral E to LV E' Septal Ratio 13.4
[2017-11-08 22:23] VITALS: BP 142/98
[2017-11-09 07:18] VITALS: BP 116/78
--- NOTE | 2017-11-09 08:27 | PN- Housestaff ---
Devan ALAMO,[facility] 11/09/17 0827: Subjective Follow-up For: CVA Tele-Events Since Last Visit: NSR 74-79 QRS .1 NH .2 Subjective: No acute events overnight. States she has a headache. Woke up at 3am due to noises and hospital disturbance. Feels some congestion. Review of Systems Constitutional: Reports: see HPI. Cardiovascular: Reports: no symptoms. Respiratory: Reports: no symptoms. Gastrointestinal: Reports: no symptoms. Genitourinary: Reports: no symptoms. Neurological/Psychological: Reports: see HPI, headache. Objective Last 24 Hrs of Vital Signs/I&O Vital Signs Date Time Temp Pulse Resp B/P B/P Pulse O2 O2 Flow FiO2 Mean Ox Delivery Rate 11/09 07 97.6 70 22 116/78 96 11/09 0030 75 94 11/08 2223 98.6 78 22 142/98 96 Room Air Intake & Output 11/09 1600 11/09 0800 11/09 0000 Intake Total 480 Output Total Balance 480 Intake, Oral 480 Number 1 Bowel Movements Patient 238 lb Weight Physical Exam General Appearance: Alert, Oriented X3, Cooperative, No Acute Distress HEENT: CN 2-12 grossly intact Cardiovascular: Regular Rate, systolic murmur Lungs: Clear to Auscultation, Normal Air Movement Abdomen: Normal Bowel Sounds, Soft, No Tenderness Extremities: RUE purchasing specialist 3/5. R side strength 4/5 compared to left 5/5. Current Medications: Current Medications Sig/Sonia Start time Last Medication Dose Route Stop Time Status Admin Acetaminophen 650 MG .STK-MED ONE 11/09 07 DC PO 11/09 0703 Acetaminophen 650 MG Q6P PRN 11/05 2215 DCD 11/09 PO 0705 Albuterol Sulfate 2 PUF BID 11/06 2200 DCD 11/09 INH 0838 Aspirin Buffered 81 MG DAILY 11/06 1000 DCD 11/09 PO 0837 Atorvastatin Calcium 80 MG 1700 11/05 2215 DCD 11/08 PO 1601 Budesonide/ 2 PUF BID 11/06 1018 DCD 11/09 Formoterol Fumarate INH 0837 Clonazepam 1 MG .STK-MED ONE 11/09 0702 DC PO 11/09 0703 Clonazepam 1 MG BID PRN 11/05 2230 DCD 11/09 PO 11/12 2229 0704 Clopidogrel Bisulfate 75 MG DAILY 11/06 1000 DCD 11/09 PO 0837 Cyclosporine 1 GTT BID 11/07 2200 DCD 11/09 OPH 0838 Enoxaparin Sodium 40 MG DAILY 11/06 1000 DCD 11/09 SC 0836 Gabapentin 100 MG Q8 11/05 2300 DCD 11/09 PO 0838 Hydrochlorothiazide 50 MG DAILY 11/06 1000 DCD 11/09 PO 0838 Insulin Aspart 0 TIDAC 11/05 2330 DCD 11/09 SC 0834 Insulin Aspart 0 AT BEDTIME 11/05 2330 DCD SC Insulin Detemir 23 UNITS AT BEDTIME 11/06 2200 DCD 11/08 SC 2057 Lactobacillus 1 CAP DAILY 11/06 1000 DCD 11/09 Acidophilus PO 0837 Montelukast Sodium 10 MG AT BEDTIME 11/05 2300 DCD 11/08 PO 205 Nicotine 21 MG DAILY 11/06 1000 DCD 11/09 TOP 0836 Omeprazole 40 MG DAILY AC 11/06 0700 DCD 11/09 PO 0659 Oxycodone/ 1 TAB Q6P PRN 11/05 2215 DCD 11/08 Acetaminophen PO 0032 Quetiapine Fumarate 400 MG AT BEDTIME 11/05 2245 DCD 11/08 PO 2056 Quetiapine Fumarate 100 MG BID 11/05 2231 DCD 11/09 PO 0837 Sertraline HCl 50 MG DAILY 11/08 1151 DCD 11/09 PO 0839 Trazodone HCl 200 MG AT BEDTIME 11/05 2330 DCD 11/08 PO 2056 Assessment/Plan Assessment: 57-year-old female with past medical history of hypertension, coronary artery disease status post stent, myocardial infarction, obstructive sleep apnea, type 2 diabetes on insulin, CVA, hyperlipidemia, was sent from her primary care physician office with complaints of slurring of speech, unsteady gait and word finding difficulty since past 3 days. Problem 1. Slurring of speech dizziness and gait instability 2. Multifactorial gait disorder 3. Hypertension 4. Diabetes Mellitus 5. History of coronary artery 6. Depression Plan Patient being discharged today. Talked to case management who told her to call [facility] for her ride. Medications were transmitted to [facility] where she could pick them up upon leaving. MRI demonstrated evidence no acute territorial infarct or hemorrhage Neurology recommendations appreciated TRC/nebs when necessary Continue atorvastatin 80 mg and Plavix ContSertraline 50 mg for depression Patient will require outpatient Psych ECHO pending Code-DNR/DNI. Patient has a living will Diet-heart healthy diet DVT prophylaxis-Lovenox Problem List: 1. CVA (cerebral vascular accident) Pain Ratin Pain Location: headache Pain Goal: Pain 4 or less Pain Plan: pain pathway Tomorrow's Labs & Rationales: none GracielaEmoryyoana 11/09/17 1414: Attending MD Review Statement Attending Statement Attending MD Statement: examined this patient, discuss w/resident/PA/AEROBICS TEACHER, agreed w/resident/PA/AEROBICS TEACHER, reviewed EMR data (avail), discussed with nursing, discussed with case mgmt Attending Assessment/Plan: pt being dced .echo was ok. ride was arranged home and pt will fu with psychiatry as an outpatient for her depression. pt was given a prescription for a cane.
[2017-11-09] MEDS ORDERED: ASPIRIN EC81 M1 PO ×2 (09:49→11:37)
[2017-11-09] MEDS ORDERED: OMEPRAZOLE20 M2 PO ×2 (09:49→11:37)
[2017-11-09] MEDS ORDERED: PLAVIX75 M1 PO ×2 (09:49→11:37)
[2017-11-09] MEDS ORDERED: SERTRALINE HCL50 MG PO ×2 (09:49→11:37)
[2017-11-09] MEDS ORDERED: ATORVASTATIN CA80 M1 PO ×2 (09:49→11:37)
[2017-11-09] MEDS ORDERED: NICOTINE PATCH1 EAC3 TOP ×2 (09:49→11:37)
[2017-11-09] MEDS ORDERED: GABAPENTIN100 M2 PO ×2 (09:49→11:37)
== END 2017-11-09 12:13 | DRG 57 ==
LOC: ERH 15:21 → ERHI 17:49 → 1NO 17:49 → ENRESERV 18:51 → ENTRNSPT 20:02 → EDTRNSPTSTS 20:10 → 1NO 20:13 → CMPTRNSPT 20:26 → 1NO 11-06 09:09 → ENPENDDIS 11-09 09:11 → EDTRNSPT 11-09 11:50 → ENTRNSPT 11-09 11:50 → EDTRNSPTSTS 11-09 11:50 → CMPTRNSPT 11-09 11:56 → 1NO 11-09 12:13
PROVIDERS: Emergency Medicine; Internal Medicine; Student in an Organized Health Care Education/Training Program
DX: I69.351 Hemiplegia and hemiparesis following cerebral infarction affecting right dominant side (principal); E11.8 Type 2 diabetes mellitus with unspecified complications; Z68.41 Body mass index [BMI] 40.0-44.9, adult; R26.0 Ataxic gait; I69.322 Dysarthria following cerebral infarction; Z72.0 Tobacco use; E66.01 Morbid (severe) obesity due to excess calories; Z79.4 Long term (current) use of insulin; G47.33 Obstructive sleep apnea (adult) (pediatric); W19.XXXA Unspecified fall, initial encounter; Z91.81 History of falling; I10 Essential (primary) hypertension; I25.10 Atherosclerotic heart disease of native coronary artery without angina pectoris; Z98.61 Coronary angioplasty status; K21.9 Gastro-esophageal reflux disease without esophagitis; I25.2 Old myocardial infarction; M47.9 Spondylosis, unspecified; Z88.6 Allergy status to analgesic agent; Z88.5 Allergy status to narcotic agent; Z88.8 Allergy status to other drugs, medicaments and biological substances; Z79.891 Long term (current) use of opiate analgesic; F32.9 Major depressive disorder, single episode, unspecified; I44.0 Atrioventricular block, first degree
CPT/HCPCS: 1NSP; 70551; 36415; 36592; 82436; 93005; 93010; 93306; 97110-GO; 97116-GO; 97161-GP; 97530-GO; J1650; J3490

== ENCOUNTER 2018-03-03 16:19 | Inpatient (IN) | payer OTHER ==
[~2018-03-03] VITALS: Ht 165.1 cm; Wt 113.0 kg
[~2018-03-03 16:19] MED LIST changes: +ASPIRIN EC81 M1 PO; +ATORVASTATIN CA80 M1 PO; +CLONAZEPAM1 M2 PO; +GABAPENTIN100 M2 PO; +NICOTINE PATCH1 EAC3 TOP; +OMEPRAZOLE20 M2 PO; +PLAVIX75 M1 PO; +RESTASIS1 EACH OPH; +SERTRALINE HCL50 MG PO; +TRAMADOL HCL50 M1 PO
[2018-03-03 17:24] LABS: ABSOLUTE BASOPHIL COUNT 0.1 /CUMM (0.0-0.2); ABSOLUTE EOSINOPHIL COUNT 0.2 /CUMM (0.0-0.7); ABSOLUTE GRANULOCYTE CT 7.5 /CUMM (1.4-6.5); ABSOLUTE MONOCYTE COUNT 0.7 /CUMM (0.10-0.60); BASOPHIL % 0.5 % (0.0-2.0); EOSINOPHIL % 2.2 % (0-5); GRANULOCYTE % 65.5 % (42.2-75.2); HEMATOCRIT 37.3 % (37-47); MEAN CORPUSCULAR HGB 24.2 PG (27.0-31.0); MEAN CORPUSCULAR HGB CONC 31.5 G/DL (33.0-37.0); MEAN CORPUSCULAR VOLUME 76.9 FL (81.0-99.0); MEAN PLATELET VOLUME 9.1 FL (7.4-10.4); PLATELET COUNT 464 /CUMM (130-400); RBC DISTRIBUTION WIDTH 16.4 % (11.5-14.5); RED BLOOD CELL CT 4.85 /CUMM (4.20-5.40); WHITE BLOOD CELL COUNT 11.5 /CUMM (4.8-10.8)
--- NOTE | 2018-03-03 18:09 | CT SCAN REPORT ---
EXAMINATION: CT HEAD WITHOUT CONTRAST CLINICAL INFORMATION: Hypertensive crisis and headaches. Rule out intracranial hemorrhage. COMPARISON: Head CT from 02/21/2018. TECHNIQUE: Contiguous axial imaging was performed from the skull base to vertex without intravenous administration of contrast. DLP: 617.2 mGy-cm FINDINGS: There is no evidence of acute intracranial hemorrhage or territorial infarction. No abnormal mass effect or midline shift is seen. Gonzalez to white matter differentiation is well preserved. No extra-axial fluid collections are identified. Low-density change in the right cerebellar hemisphere consistent with encephalomalacia from a prior infarct. The ventricles are normal in size. Moderate chronic white matter microangiopathic changes are present. There are chronic lacunar infarcts in the deep gonzalez matter structures, unchanged. The osseous structures and soft tissues are normal. The mastoid air cells and visualized portions of the paranasal sinuses are well aerated. IMPRESSION: No acute intracranial hemorrhage or territorial infarction. Chronic infarcts in the deep gonzalez matter structures and right cerebellar hemisphere, as noted on prior imaging with moderate chronic white matter microangiopathy. The possibility of a focal acute ischemic process cannot be ruled out on the basis of this study.
--- NOTE | 2018-03-03 18:36 | ED GENERAL ADULT ---
History of Present Illness General Chief Complaint: General Adult Stated Complaint: SENT BY FOR HIGH HEART RATE, 110 ON PULSE OX Source: patient, old records Exam Limitations: no limitations Vital Signs & Intake/Output Vital Signs & Intake/Output Vital Signs Date Time Temp Pulse Resp B/P B/P Pulse O2 O2 Flow FiO2 Mean Ox Delivery Rate 03/04 0024 98.5 72 20 174/98 96 Room Air 03/03 2224 98.1 74 16 184/83 98 Room Air 03/03 1921 Room Air 03/03 1920 98.2 78 18 141/78 96 Room Air 03/03 1638 98.5 89 18 160/103 98 Room Air ED Intake and Output 03/04 0000 03/03 1200 Intake Total Output Total Balance Patient 240 lb Weight Weight Reported by Patient Measurement Method Allergies Coded Allergies: lithium (Intermediate, "OUT OF MY MIND" 02/12/17) ibuprofen (Mild, HIVES 02/12/17) adhesive tape (PAPER TAPE CAUSES A RASH - OKAY WITH OTHER TAPES PER PT 05/23/17 ) divalproex sodium (From DEPAKOTE) (HALLUCINATE 11/05/17) tramadol (RASH 11/05/17) Triage Note: 58F RETURNS TO ED SIB DR GEORGE'S OFFICE DUE TO CONCERN REGARDING EKG W T WAVE CHANGES TO LEADS 1, V3, V4, V5 AND V6. REPORTS HEADACHES, PHOTOSENSITIVITY, ABD PAIN WITH DIARRHEA X2 WEEKS. +DIZZINESS. DENIES RECENT ANTIBIOTIC USE. HYPERTENSIVE IN TRIAGE 160/103 Triage Nurses Notes Reviewed? yes HPI: Patient presents for evaluation of "not feeling well" over the past 2 weeks. She went to see her primary care doctor who sent off some blood tests and then did an EKG, noting that her heart rate was elevated. She was asked to go to the emergency department for an evaluation. Patient states that she has had an occasional elevation in heart rate along with intermittent chest pain episodes, dyspnea, abdominal pain, and migraines. Patient states she did have an episode of chest pain this morning that felt like heaviness in the left side of the chest with associated jaw pain and diaphoresis. Patient states she also felt short of breath. Regards to the abdominal pain, she is describing a bilateral upper quadrant sharp abdominal pain with a right upper quadrant "bump". In addition she is complaining of leg pains that have been present over the past 2 week and lamented that "everything hurts". (Huong ALAMO,Osmar Ellis) Reconcile Medications Amlodipine Besylate 10 MG TABLET 1 TAB PO DAILY HEART (Reported) . Aspirin (Ecotrin*) 81 MG TABLET.DR 81 MG PO DAILY HEART Atorvastatin Calcium 80 MG TABLET 40 MG PO 1700 STROKE PREVENTION Calcipotriene 0.005 % CREAM..G. 1 BILL TOP DAILY FEET (Reported) Canagliflozin (Invokana) (Unknown Strength) TABLET (Unknown Dose) PO TID DM ( Reported) Clonazepam 1 MG TABLET 1 TAB PO BIDP PRN Anxiety (Reported) Clopidogrel Bisulfate (Plavix) 75 MG TABLET 75 MG PO DAILY STROKE PREVENTION Cyclosporine (Restasis) 0.05 % DROPERETTE 1 GTT OPH BID eyes (Reported) Fluticasone-Salmeterol (Advair 100-50 Diskus) 100 MCG-50 MCG/DOSE BLST.W.DEV 1 PUF INH BID RESP. (Reported) Gabapentin 100 MG CAPSULE 100 MG PO Q8 NEUROPATHY Insulin Detemir (Levemir) 100 UNIT/ML VIAL 46 UNITS SC QPM DM (Reported) Insulin Lispro (Humalog Kwikpen U-100) (Unknown Strength) INSULN.PEN 12 UNITS SC TIDAC DM (Reported) Metformin HCl 500 MG TABLET 1 TAB PO BID DIABETES (Reported) Montelukast Sodium 10 MG TABLET 1 TAB PO DAILY ALLERGIES/RESP (Reported) Nicotine (Nicotine Patch) 21 MG/24 HOUR PATCH.TD24 21 MG TOP DAILY smoking cessation Omeprazole 20 MG CAPSULE.DR 40 MG PO DAILY AC ACID REFLUX Polycarbophil (Fiber) (Unknown Strength) TABLET (Unknown Dose) PO DAILY SUPPLEMENT (Reported) Quetiapine Fumarate (Seroquel) 100 MG TABLET 2 TAB PO DAILY MENTAL HEATLH ( Reported) Quetiapine Fumarate (Seroquel) 200 MG TABLET 2 TAB PO QHS MENTAL HEALTH ( Reported) Trazodone HCl 100 MG TABLET 2 TAB PO QHS MENTAL HEALTH AND SLEEP (Reported) Vit C/E/Zn/Coppr/Lutein/Zeaxan (Preservision Areds 2 Softgel) 250-200-40 CAPSULE 1 CAP PO BID SUPPLEMENT (Reported) (Judy ALAMO,Marcos Michele) Past History Travel History Traveled to [place] past 21 day No Medical History Any Pertinent Medical History? see below for history Neurological: CVA HEMORRAGIC EENT: NONE Cardiovascular: hypertension Respiratory: obstructive sleep apnea Gastrointestinal: NONE Hepatic: NONE Renal: NONE Musculoskeletal: NONE Psychiatric: NONE Endocrine: diabetes Blood Disorders: NONE Cancer(s): NONE HUMAN RESOURCES PARTNER/Reproductive: NONE History of MRSA: No History of VRE: No History of CDIFF: No Surgical History Surgical History: arthroscopy, Psychosocial History Who do you live with Patient/Self Services at Home None What is your primary language Latvian Tobacco Use: Current Daily Use Daily Tobacco Use Amount/Type: => 5 Cigarettes daily Family History Family History, If Any: SISTER (History of clotting disorder). FATHER (History of cancer). Hx Contributory? No (Huong ALAMO,Osmar Ellis) Review of Systems Review of Systems Constitutional: Reports: no symptoms. EENTM: Reports: no symptoms. Respiratory: Reports: see HPI. Cardiovascular: Reports: see HPI. GI: Reports: see HPI. Genitourinary: Reports: no symptoms. Musculoskeletal: Reports: see HPI. Skin: Reports: no symptoms. Neurological/Psychological: Reports: see HPI. Hematologic/Endocrine: Reports: no symptoms. Immunologic/Allergic: Reports: no symptoms. All Other Systems: Reviewed and Negative (Huong ALAMO,Osmar Ellis) Physical Exam Physical Exam General Appearance: see below Comments: Gen.: Well-nourished, well-developed, no acute respiratory distress. Overweight. Head: Normocephalic, atraumatic. Eyes: Normal inspection bilaterally Ears: Normal inspection bilaterally Nose: Normal inspection Throat/mouth : Moist mucosa Neck: Supple, full range of motion, no goiter Heart: Regular rate and rhythm, no murmurs rubs or gallops Lungs: Clear to auscultation bilaterally with normal air entry Chest: Nontender Back: Normal range of motion Abdomen: Soft, nontender, nondistended, normal bowel sounds Extremities: Normal range of motion grossly, equal radial pulses, no cyanosis clubbing or edema, right knee brace Neurologic: Cranial nerves grossly intact, speech is clear Skin: warm and dry Psychiatric: Calm, cooperative, no apparent delusions or hallucinations Core Measures ACS in differential dx? Yes CVA/TIA Diagnosis: No Sepsis Present: No Sepsis Focused Exam Completed? No (Huong ALAMO,Osmar Ellis) Progress Differential Diagnoses I considered the following diagnoses in my evaluation of the patient: Plan of Care: Orders Procedure Date/time Status CBC WITHOUT DIFFERENTIAL 03/05 0600 Active Nothing by Mouth 03/04 B Active TROPONIN LEVEL 03/04 1000 Active EKG 03/04 1000 Active HEPATIC FUNCTION PANEL 03/04 06 Active CBC WITHOUT DIFFERENTIAL 03/04 600 Active BASIC ELECTROLYTES PLUS BUN&CR 03/04 06 Active TROPONIN LEVEL 03/04 0200 Complete EKG 03/04 0200 Active Saline Lock 03/046 Active Pathway - chart 03/04 46 Active House Staff 03/046 Active CASE MANAGEMENT CONSULT 03/04 0046 Active TYPE & SCREEN (NOT X-MATCH) 03/04 0046 Complete Weight 03/04 0018 Active Teach/Educate 03/04 0018 Active Pain Treatment and Response 03/04 18 Active Nutritional Intake, Monitor 03/048 Active Isolation 03/048 Active Patient Care Conference 03/04 0018 Active Activity/Ambulation 03/04 0018 Complete PT Evaluate & Treat 03/04 UNK Active VTE Mechanical Prophylaxis 03/04 UNK Active Vital Signs 03/04 UNK Active Intake & Output 03/04 UNK Active Hemoccult 03/04 UNK Active FingerStick- Glucose 03/04 UNK Active Activity/Ambulation 03/04 UNK Active MRI-ABDOMEN 03/04 UNK Active Patient Data 03/03 2214 Active Saline Lock 03/03 2120 Active Misc Message 03/03 2120 Active ED Holding Orders 03/03 2120 Active Admit to inpatient 03/03 2120 Active Vital Signs 03/03 2120 Complete Code Status 03/03 2120 Active TROPONIN LEVEL 03/03 2037 Complete EKG 03/03 203 Active Intake & Output 03/03 1636 Complete TSH REFLEX 03/03 1629 Complete TROPONIN LEVEL 03/03 1629 Complete MAGNESIUM 03/03 162 Complete D-DIMER 03/03 162 Complete COMPREHENSIVE METABOLIC PANEL 03/03 1629 Complete CBC WITHOUT DIFFERENTIAL 03/03 162 Complete EKG 03/03 162 Active Current Medications Sig/Sonia Start time Last Medication Dose Stop Time Status Admin Montelukast Sodium 10 MG 0 03/04 2200 AC (Singulair) Trazodone HCl 200 MG AT BEDTIME 03/04 2100 AC (Desyrel) Aspirin Buffered 81 MG DAILY 03/04 900 AC (Ecotrin) Budesonide/ 2 PUF BID 03/04 900 AC Formoterol Fumarate (SYMBICORT) Clopidogrel Bisulfate 75 MG DAILY 03/04 900 AC (Plavix) Insulin Detemir 15 UNITS BID 03/04 900 AC (Levemir) Nicotine 21 MG DAILY 03/04 900 AC (Nicoderm) Pantoprazole Sodium 40 MG DAILY 03/04 900 AC (Protonix) Quetiapine Fumarate 200 MG DAILY 03/04 900 AC (Seroquel) Gabapentin 100 MG Q8 03/04 600 AC (Neurontin) Heparin Sodium 5,000 UNIT Q8 03/04 600 AC (Porcine) Quetiapine Fumarate 400 MG QPM 03/04 0130 AC (Seroquel) Acetaminophen 650 MG Q8P PRN 03/04 0115 AC (Tylenol) Clonazepam 1 MG .[BIDP] PRN 03/04 0100 AC 03/04 (Klonopin 1MG Tab) 03/11 0059 0125 Insulin Human Regular 0 Q6 03/04 0100 AC 03/04 (NovoLIN R) 0126 Morphine Sulfate 2 MG Q4P PRN 03/04 010 AC 03/04 (MORPHINE SULFATE) 0125 Sodium Chloride 1,000 ML .Q20H 03/04 0045 AC (Normal Saline 0.9%) Laboratory Tests 03/04/18 0230: Troponin I < 0.01 03/03/18 2055: Troponin I < 0.01 03/03/18 1659: Anion Gap 15, Estimated GFR 57 L, BUN/Creatinine Ratio 12.0, Glucose 203 H, Calcium 10.1, Magnesium 1.3 L, Total Bilirubin 0.3, AST 67 H, ALT 94 H, Alkaline Phosphatase 282 H, Troponin I < 0.01, Total Protein 8.0, Albumin 4.7, Globulin 3.3, Albumin/Globulin Ratio 1.4, TSH &T3 &Free T4 Intrp 2.010, D-Dimer High Sensitivty < 200 03/03/18 1559: CBC w Diff NO MAN DIFF REQ, RBC 4.85, MCV 76.9 L, MCH 24.2 L, MCHC 31.5 L, RDW 16.4 H, MPV 9.1, Gran % 65.5, Lymphocytes % 25.9, Monocytes % 5.9, Eosinophils % 2.2, Basophils % 0.5, Absolute Granulocytes 7.5 H, Absolute Lymphocytes 3.0, Absolute Monocytes 0.7 H, Absolute Eosinophils 0.2, Absolute Basophils 0.1 Comments: 03/03/2018 6:58:51 PM patient signed out 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 (Huong ALAMO,Osmar Ellis) Diagnostic Imaging: Viewed by Me: Ultrasound. Discussed w/RAD: Ultrasound. Radiology Impression: PATIENT: ROYA HAAS PRESENT AGE: 58 PATIENT ACCOUNT NO: [id number] : 60 LOCATION: ER ORDERING PHYSICIAN: Osmar Borja MD SERVICE DATE: 03/03/18 EXAM TYPE : US - US-LIMITED ABDOMEN EXAMINATION: US ABDOMEN LIMITED CLINICAL INFORMATION: Right upper quadrant pain. COMPARISON: None TECHNIQUE: Real-time imaging of the right upper quadrant abdominal viscera. FINDINGS: PANCREAS: Normal. LIVER: Enlarged measuring 20.8 cm no focal lesion. No biliary dilatation. GALLBLADDER: Normal. The gallbladder is physiologically distended without evidence of stones, sludge, polyps, wall thickening or pericholecystic fluid. Patient reportedly however tender over the gallbladder. COMMON BILE DUCT: Normal in caliber measuring 1 cm in diameter. RIGHT KIDNEY: Normal. No hydronephrosis. No renal calculi or focal parenchymal lesions. The kidney measures 10.7 cm in maximum dimension. FREE FLUID: None. IMPRESSION: Limited imaging due to body habitus. No gallstones but the patient is tender over the gallbladder. CBD mildly prominent without definite choledocholithiasis. Consider MRCP as warranted clinically. Nonspecific moderate hepatomegaly. No focal lesion. DICTATED BY: Tim Ramos MD DATE/TIME DICTATED:03/03/181926 ENGAGEMENT LIAISON:MARY GRACE DATE/TIME TRANSCRIBED:03/03/181926 CONFIDENTIAL, DO NOT COPY WITHOUT APPROPRIATE AUTHORIZATION. <Electronically signed in Other Vendor System> SIGNED BY: Tim Ramos MD 03/03/181952, PATIENT: ROYA HAAS PRESENT AGE: 58 PATIENT ACCOUNT NO: [id number] : 60 LOCATION: [facility] ORDERING PHYSICIAN: Osmar Borja MD SERVICE DATE: 03/03/18 EXAM TYPE : CAT - CT HEAD WO IV CONTRAST EXAMINATION: CT HEAD WITHOUT CONTRAST CLINICAL INFORMATION: Hypertensive crisis and headaches. Rule out intracranial hemorrhage. COMPARISON: Head CT from 02/21/2018. TECHNIQUE: Contiguous axial imaging was performed from the skull base to vertex without intravenous administration of contrast. DLP: 617.2 mGy-cm FINDINGS: There is no evidence of acute intracranial hemorrhage or territorial infarction. No abnormal mass effect or midline shift is seen. Gonzalez to white matter differentiation is well preserved. No extra-axial fluid collections are identified. Low-density change in the right cerebellar hemisphere consistent with encephalomalacia from a prior infarct. The ventricles are normal in size. Moderate chronic white matter microangiopathic changes are present. There are chronic lacunar infarcts in the deep gonzalez matter structures, unchanged. The osseous structures and soft tissues are normal. The mastoid air cells and visualized portions of the paranasal sinuses are well aerated. IMPRESSION: No acute intracranial hemorrhage or territorial infarction. Chronic infarcts in the deep gonzalez matter structures and right cerebellar hemisphere, as noted on prior imaging with moderate chronic white matter microangiopathy. The possibility of a focal acute ischemic process cannot be ruled out on the basis of this study. DICTATED BY: Cooper Cason MD DATE/TIME DICTATED:03/03/181801 ENGAGEMENT LIAISON:MARY GRACE DATE/TIME TRANSCRIBED:03/03/181801 CONFIDENTIAL, DO NOT COPY WITHOUT APPROPRIATE AUTHORIZATION. <Electronically signed in Other Vendor System> SIGNED BY: Cooper Cason MD 03/03/181808 Initial ED EKG: nsr. no acute changes Repeat EKG: unchanged (Judy ALAMO,Marcos Michele) Departure Departure Condition: Stable Referrals: Doris George MD (PCP/Family) Departure Forms: Customer Survey General Discharge Information (Huong ALAMO,Osmar Ellis) Departure Disposition: STILL A PATIENT Clinical Impression Primary Impression: Biliary colic Secondary Impressions: Chest pain Comments 03/03/18, 21:10... discussed with dr. chan... pt merits an MRCP and may need further investigation (ie. ercp) 03/03/18, 21:20...discussed with dr. castillo who will see patient in the morning Admission Note Spoke With: Kirsten Becerra MD Documentation of Exam: Documentation of any treatments & extenuating circumstances including Concerns Regarding Discharge (functional status, medication knowledge or non-compliance, living conditions, etc.) that warrant an admission rather than observation: pt with chest pain radiating to neck as well as garcia's sign with slightly dilated cbd... pt merits admission for serial trops/monitoring, cards evaluation... also merits MRCP, gi/gen surg consult. (Judy ALAMO,Marcos Michele) Critical Care Note Critical Care Note Critical Care Time: 30-74 min (Judy ALAMO,Marcos Michele)
--- NOTE | 2018-03-03 19:53 | ULTRASOUND REPORT ---
EXAMINATION: US ABDOMEN LIMITED CLINICAL INFORMATION: Right upper quadrant pain. COMPARISON: None TECHNIQUE: Real-time imaging of the right upper quadrant abdominal viscera. FINDINGS: PANCREAS: Normal. LIVER: Enlarged measuring 20.8 cm no focal lesion. No biliary dilatation. GALLBLADDER: Normal. The gallbladder is physiologically distended without evidence of stones, sludge, polyps, wall thickening or pericholecystic fluid. Patient reportedly however tender over the gallbladder. COMMON BILE DUCT: Normal in caliber measuring 1 cm in diameter. RIGHT KIDNEY: Normal. No hydronephrosis. No renal calculi or focal parenchymal lesions. The kidney measures 10.7 cm in maximum dimension. FREE FLUID: None. IMPRESSION: Limited imaging due to body habitus. No gallstones but the patient is tender over the gallbladder. CBD mildly prominent without definite choledocholithiasis. Consider MRCP as warranted clinically. Nonspecific moderate hepatomegaly. No focal lesion.
[2018-03-03] MEDS ORDERED: ADVAIR 100-501 EACH INH (20:12)
[2018-03-03] MEDS ORDERED: CALCIPOTRIENE60 G1 TOP (20:12)
[2018-03-03] MEDS ORDERED: MONTELUKAST SOD10 M1 PO (20:13)
[2018-03-03] MEDS ORDERED: HYDROCODON-ACE1 EAC2 PO (20:13)
--- NOTE | 2018-03-03 21:55 | RADIOLOGY REPORT ---
EXAMINATION: XR PORTABLE CHEST CLINICAL INFORMATION: Chest pain. COMPARISON: None. TECHNIQUE: AP portable upright view of the chest FINDINGS: EKG leads overlie the chest. Assessment of the lung bases is somewhat limited due to underpenetration. Lungs are clear. No consolidation, pneumothorax, or pleural effusion. Cardiac and mediastinal contours are normal. Pulmonary vasculature is unremarkable. Osseous structures are unremarkable. IMPRESSION: No acute cardiopulmonary findings
--- NOTE | 2018-03-03 22:37 | History & Physical ---
Shirley Zunigaed 03/03/18 2235: General Information and HPI History of Present Illness: Yuan Gabriel is a 58 YO female with PMHx of hypertension, coronary artery disease status post stent, myocardial infarction, obstructive sleep apnea, type 2 diabetes on insulin, CVA, and hyperlipidemia presents to the ED with complaints of "chest pain." Patient states she was not feeling well today and decided to go see her PCP Dr. George. At the outpatient office, the patient started to experience chest pain originating near her sternum and radiating to her neck. Patient describes her discomfort as a heaviness in her chest. Patient also admits to nausea, abdominal pain, headaches, photosensitivty, and shortness of breath. Patient denies fever but admits to diarrhea for the past 2 weeks with decreased appetite within the time period. Patient also admits to having upper abodminal pain, right greater than the left. Patient states she has had associated nausea and vomiting for the past two weeks. Patient attributes her abdominal pain to having a history of stones in her gallbladder for which she had received medication prior to clear it up. Patient also admits to general feeling of discomfort and would like something for her pain. Patient also admits to weakness for the past three days, notably in her right lower extremity and left upper extremity. Patient also admits to numbness and tingling on the face and decreased sensation in the left side of her face. Patient admits to having a mini stroke in October and a heart attack back in 2012 for which she received stent placement. Allergies/Medications Allergies: Coded Allergies: lithium (Intermediate, "OUT OF MY MIND" 02/12/17) ibuprofen (Mild, HIVES 02/12/17) adhesive tape (PAPER TAPE CAUSES A RASH - OKAY WITH OTHER TAPES PER PT 05/23/17 ) divalproex sodium (From DEPAKOTE) (HALLUCINATE 11/05/17) tramadol (RASH 11/05/17) Home Med list Amlodipine Besylate 10 MG TABLET 1 TAB PO DAILY HEART (Reported) . Aspirin (Ecotrin*) 81 MG TABLET.DR 81 MG PO DAILY HEART Atorvastatin Calcium 80 MG TABLET 40 MG PO 1700 STROKE PREVENTION Calcipotriene 0.005 % CREAM..G. 1 BILL TOP DAILY FEET (Reported) Canagliflozin (Invokana) (Unknown Strength) TABLET (Unknown Dose) PO TID DM ( Reported) Clonazepam 1 MG TABLET 1 TAB PO BIDP PRN Anxiety (Reported) Clopidogrel Bisulfate (Plavix) 75 MG TABLET 75 MG PO DAILY STROKE PREVENTION Cyclosporine (Restasis) 0.05 % DROPERETTE 1 GTT OPH BID eyes (Reported) Fluticasone-Salmeterol (Advair 100-50 Diskus) 100 MCG-50 MCG/DOSE BLST.W.DEV 1 PUF INH BID RESP. (Reported) Gabapentin 100 MG CAPSULE 100 MG PO Q8 NEUROPATHY Insulin Detemir (Levemir) 100 UNIT/ML VIAL 46 UNITS SC QPM DM (Reported) Insulin Lispro (Humalog Kwikpen U-100) (Unknown Strength) INSULN.PEN 12 UNITS SC TIDAC DM (Reported) Metformin HCl 500 MG TABLET 1 TAB PO BID DIABETES (Reported) Montelukast Sodium 10 MG TABLET 1 TAB PO DAILY ALLERGIES/RESP (Reported) Nicotine (Nicotine Patch) 21 MG/24 HOUR PATCH.TD24 21 MG TOP DAILY smoking cessation Omeprazole 20 MG CAPSULE.DR 40 MG PO DAILY AC ACID REFLUX Polycarbophil (Fiber) (Unknown Strength) TABLET (Unknown Dose) PO DAILY SUPPLEMENT (Reported) Quetiapine Fumarate (Seroquel) 100 MG TABLET 2 TAB PO DAILY MENTAL HEATLH ( Reported) Quetiapine Fumarate (Seroquel) 200 MG TABLET 2 TAB PO QHS MENTAL HEALTH ( Reported) Trazodone HCl 100 MG TABLET 2 TAB PO QHS MENTAL HEALTH AND SLEEP (Reported) Vit C/E/Zn/Coppr/Lutein/Zeaxan (Preservision Areds 2 Softgel) 250-200-40 CAPSULE 1 CAP PO BID SUPPLEMENT (Reported) Past History Travel History Traveled to [place] past 21 day No Medical History Neurological: CVA HEMORRAGIC EENT: NONE Cardiovascular: hypertension Respiratory: obstructive sleep apnea Gastrointestinal: NONE Hepatic: NONE Renal: NONE Musculoskeletal: NONE Psychiatric: NONE Endocrine: diabetes Blood Disorders: NONE Cancer(s): NONE ESTHETICIAN/SKIN THERAPIST/Reproductive: NONE History of MRSA: No History of VRE: No History of CDIFF: No Surgical History Surgical History: arthroscopy, Past Family/Social History Family History Relations & Conditions if any SISTER (History of clotting disorder). FATHER (History of cancer). Psychosocial History Who Do You Live With? self Services at Home: None Primary Language: Tam[place] Smoking Status: Light Tobacco Smoker ETOH Use: denies use Functional Ability ADLs Independent: dressing, eating, toileting, bathing. Ambulation: cane IADLs Independent: shopping, housework, finances, food prep, telephone, transportation , medication admin. Review of Systems Review of Systems Constitutional: Reports: malaise, weakness. Denies: chills, diaphoresis, fever. EENTM: Denies: visual changes. Cardiovascular: Reports: chest pain. Denies: edema, orthopena, palpitations, peripheral edema. Respiratory: Reports: short of breath. Denies: cough, orthopnea. GI: Reports: abdominal pain (right greater than left), diarrhea, nausea, vomiting. Denies: bloody stool. Genitourinary: Denies: dysuria. Musculoskeletal: Reports: joint pain (joint stiffness). Neurological/Psychological: Reports: headache (migraines), numbness, tingling, weakness (left-side predominantly). Exam & Diagnostic Data Last 24 Hrs of Vital Signs/I&O Vital Signs Date Time Temp Pulse Resp B/P B/P Pulse O2 O2 Flow FiO2 Mean Ox Delivery Rate 03/04 0024 98.5 72 20 174/98 96 Room Air 03/03 2224 98.1 74 16 184/83 98 Room Air 03/03 1921 Room Air 03/03 1920 98.2 78 18 141/78 96 Room Air 03/03 1638 98.5 89 18 160/103 98 Room Air Intake & Output 03/04 0800 07 0000 03/03 1600 Intake Total Output Total Balance Patient 241 lb 240 lb Weight Weight Bed scale Reported by Patient Measurement Method Physical Exam General Appearance Alert, Oriented X3, Cooperative, Mild Distress Skin No Rashes, No Breakdown Skin Temp/Moisture Exam: Warm/Dry HEENT Atraumatic, PERRLA Neck Supple Cardiovascular Normal S1, Normal S2 Lungs Clear to Auscultation Abdomen Soft, tenderness to palpation, right greater to left Neurological 1+ reflexes L4, Negative Babinksi sign Assessment/Plan Assessment: Problem List * Unstable Angina * CVA, Sub-Acute * Biliary Colic, RUQ * h/o DM * h/o HTN * h/o ROBBIN - Admit to telemetry for cardiac monitoring and symptoms of further extremity weakness - ASA and Clopidogrel to prevent further complications of her acute/sub-acute neurological deficit and angina pectoris symptoms - CT Head w/o Contrast Impresssion: No acute intracranial hemorrhage or territorial infarction. Chronic infarcts in the deep soriano matter structures and right cerebellar hemisphere, as noted on prior imaging with moderate chronic white matter microangiopathy. The possibility of a focal acute ischemic process cannot be ruled out on the basis of this study - US ABD (Right Upper Quadrant Pain) Impression: Limited imaging due to body habitus. No gallstones but the patient is tender over the gallbladder. CBD mildly prominent without definite choledocholithiasis. Consider MRCP as warranted clinically. Nonspecific moderate hepatomegaly. No focal lesion. - GI Consult for possible MRCP to r/o choledocholithiasis. - NPO; Zofran prn for Nausea/Vomiting - Pain control for biliary colic with Morphine - Serial EKG and Troponin follow up; Troponin 2 AM nl - DVT PPx. As Ranked By This Provider Problem List: 1. Unstable angina 2. CVA (cerebral vascular accident) 3. Biliary colic 4. Chest pain 5. Hypertension 6. Headache Core Measures/Misc (05/16) Acute Coronary Syndrome ACS Diagnosis: No Congestive Heart Failure Congestive Heart Failure Diagnosis No Cerebrovascular Accident CVA/TIA Diagnosis: Yes VTE (View Protocol) VTE Risk Factors Acute Medical Illness No Mechanical VTE Prophylaxis d/t N/A MechProphylax Ordered No VTE Pharm Prophylaxis d/t NA PharmProphylax ordered Sepsis (View protocol) Sepsis Present: No If YES complete Sepsis Event Note If YES complete Sepsis Event Note Kirsten Becerra MD 03/04/18 0033: Core Measures/Misc (05/16) Sepsis (View protocol) If YES complete Sepsis Event Note If YES complete Sepsis Event Note Attending MD Review Statement Attending Statement Attending MD Statement: examined this patient, discuss w/resident/PA/GRAPHIC SPECIALIST, agreed w/resident/PA/GRAPHIC SPECIALIST, reviewed EMR data (avail) Attending Assessment/Plan: 58F PMH HTN, CAD with KS s/p stent on ASA/Plavix, history of CVA with no residual, obstructive sleep apnea, T2IDDM, HLD, choledocholithiasis s/p ERCP 1 year ago presenting with 1 week of RUQ pain and left sided chest pain. Has not felt well for the past 2 weeks, and today experienced left sided chest pain at rest radiating to the jaw, 7/10. She felt mildly short of breath as well, but denies palpitations, lightheadedness, or diaphoresis. Her pain has persisted and has continued, despite Morphine. She also reports RUQ pain, similar to when she had a gallstone a year ago. No signs or symptoms of cholangitis. EKG NSR without acute changes, AST/ALT/Alk phos elevated, normal bili, normal renal function. Has RUQ tenderness on exam, normal cardiac exam. On U/S, no gallstones, positive sonographic Garcia's, CBD 1cm, troponin negative x2. 1. Chest pain at rest 2. Choledocholithiasis 3. History of CAD Plan - Admit to telemetry - Serial cardiac enzymes and EKG - Cardiology and GI consults - Trend LFTs - MRCP - Continue ASA and Plavix - Check HbA1c, lipids, TSH - Continue home medications - Morphine 4mg q4h PRN pain - 0.5 nitropaste - DVT PPx - NPO after midnight Gavino Vazquez 03/04/18 0206: Core Measures/Misc (05/16) Sepsis (View protocol) If YES complete Sepsis Event Note If YES complete Sepsis Event Note Resident Review Statement Resident Statement: examined this patient, discussed with manager [employer] sales Other Findings: Ms Bolden is a 58 year old woman w/a PMHx of 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 2011), CVA x 3 episodes ( last admission to 11/14) was sent to the ER by her PCP w/ a chief concern of "elevated heart rate", and evaluation of chest pain. She was noted to be in her usual state of health until 2 weeks ago, which is noticed that she had palpitations and occasional chest discomfort, which was exertional when she was doing her daily chores. Also reported associated dyspnea, when she goes up one flight of stairs which is chronic. Also reported abdominal discomfort that started approximately 2 weeks ago also. On the right side, sharp, radiation to the back associated w/ diarrhea(2-3 x per day). Also reported nausea and vomiting associated with abdominal discomfort. No melena or bleeding per rectum. Decreased by mouth intake. Abdominal pain worsened in the last 24 hours, and so she sought medical attention. Also had chest discomfort on the left side, described as heaviness associated with diaphoresis and dyspnea, severity 5/10, radiation to the jaw. Family history significant for clotting disorder in sister and cancer in father. No jaundice, weight loss, pedal edema, dysuria, abdominal distention noted. No melena, bleeding per rectum. She also reported continued weakness of her upper and lower extremities, and had slurring of speech associated with tingling numbness sensation of her face on occasion. She also reported ataxia and imbalance while walking, which is chronic that has resulted in a mechanical fall recently. Does not have any complaints at this time. Reported similar complaints 2 years ago, when she had nausea abdominal distention and diarrhea associated with jaundice. She was admitted to [facility] and had ERCP done at that time. She did not have similar complaints in the last 2 years. Vitals-temperature 98.5, pulse rate 89, respiration 18, blood pressure 160/103-- 141/78, 98% on room air. On examination-General Exam: AAOx3, No acute distress, Skin: No rashes, no breakdown; HEENT: PERRLA, EOMI;Neck: Supple, No JVD; No cervical lymphadenopathy ; CVS: Reg Rate, Normal S1,S2, No MGR;Resp: Normal air entry, no ronchi/rales; Abdomen: Soft, RUQ tenderness, murphys positive, Normal Bowel Sounds; Neuro: Normal Speech, Strength 5/5 b/l x 4 extremities, Sensation intact L<R, CN III- XII NL, Reflexes 2+, cerebellar tests negative, gait could not be tested, since she felt weak in her lower extremities; Extremities: No cyanosis, no pedal edema. EKG revealed normal sinus rhythm, no acute ST-T wave changes. Pertinent Lab findings: WBC 11.5 ( granulocytes 65%), platelet count 464 Hemoglobin 11.8, MCV 76.9, hematocrit 37.3 (microcytic) Sodium 142, potassium 3.7, magnesium 1.3, bicarbonate 27, anion gap 15, Renal function-BUN 12, creatinine 1.0. Glucose 203, hemoglobin A1c 8.4 (02/11/2018). Liver chemistries-AST 67, AST 94, alkaline phosphatase 282 (baseline 67 u/l on 10/2017), Tbili 0.3 Albumin 4.7, INR pending Troponin I-0.01, 0.01 D-dimer less than 200. TSH 2.01 Ct head: no acute intracranial hemorrhage or territorial infarction. Chronic infarcts in the deep soriano matter structures and right cerebellar hemisphere, as noted on prior imaging with moderate chronic white matter microangiopathy. The possibility of a focal acute ischemic process cannot be ruled out on the basis of this study. US RUQ abdomen imited imaging due to body habitus. No gallstones but the patient is tender over the gallbladder. CBD ( 1cm) mildly prominent without definite choledocholithiasis. Chest x ray- no acute cardiopulmonary findings: Etiology in this case is likely unstable angina with symptoms of chest discomfort associated with dyspnea given her positive risk factors, smoking, type 2 diabetes uncontrolled, hyperlipidemia, hypertension. She needs to be risk stratified. Given her abdominal discomfort/tenderness and abnormal liver enzymes, it is likely that her chest discomfort could be from a right upper quadrant/abdominal source. She has a history of possible choledocholithiasis, and given elevation of AST, ALT, alkaline phosphatase points towards possible obstruction in the biliary system. Ultrasound abdomen, however was unremarkable. At this time, she does not appear to be septic, or has any ascending cholangitis; that said this needs to be kept and differential always. She was recently started on atorvastatin-high intensity, which can cause abnormal liver enzymes that should be kept in the differential. In regards to her neurological symptoms, which appear to be chronic at this time. Abnormal radiological finding on CAT scan head, is likely incidental or could be an artifact, which need to be evaluated further by an MRI if indicated, since she does not have any new symptoms. She received a dose of aspirin, and another dose of 81 mg totaling 162 mg was administered. Problem list: 1. Rule out ACS, unstable angina 2. R/o cholangitis/ Possible choledocholithiasis 3. Type 2 Diabetes w/ neuropathy 4. h/o HTN 5. h/o HLD 6. h/o COPD 7. h/o CVA 8. h/o Depresion 9. Reactive thrombocytosis 10.history of migraine 11. ? h/o thryoid nodule w/ normal TSH Plan: - Admit the pt to telemetry -start IVF 75ml/hr -NPO -Monitor vitals closely -Check liver chemistries daily, Check INR -Check Blood cultures, Start abx if s/o infection to cover for cholangitis -Continue levemir upto 50% bid, and novolin sliding scale(start coverage at 250mg/dl) -Hold anti-hyperensives for now. -Continue anti-depressants. Confirm the dose, since she is at a higher dose. -Serial trop and EKG -GI consult -Cardilogy consult. Reported to have taken ASA, and adminiter another 81mg. Continue ASA+plavix. Continue statin, hold if AST/ALT trend up. -MRCP as per GI -Fall precautions, PT consult. If she continues to have any weakness in her LLE, or develops any new neurological symptoms she should get MRI to rule out any acute findings -Continue symbicort. -Pain Mgt w/ morphine. DVT PPx- heparin sc NPO Full code Med Rec- done. Confirm the dose of seroquel.
[2018-03-04 00:24] VITALS: BP 174/98
--- NOTE | 2018-03-04 03:42 | Admission Certification ---
Admission Certification Certification Statement - As attending physician, I certify that at the time of - admission, based on clinical presentation, severity of - symptoms, need for further diagnostic testing and - therapeutic interventions, and risk of adverse outcomes - without in-hospital treatment, in my clinical assessment, - this patient requires an acute hospital stay for a minimum - of two nights or longer. I have also considered psychsocial - factors such as support system, advanced age, financial - issues, cognitive issues, and failed out-patient treatments, - past re-admission history, safety of patient, and lack of - compliance as applicable. Specific rationale supporting this admission is: Chest pain at rest with history of OR + choledocholithiasis
[2018-03-04 07:21] VITALS: BP 126/84
--- NOTE | 2018-03-04 07:29 | PN- Housestaff ---
Shayne Jaime 03/04/18 0729: Subjective Follow-up For: 1. Unstable angina 2. bILIARY COLIC/Possible choledocholithiasis 3. Type 2 Diabetes w/ neuropathy 4. h/o HTN 5. h/o HLD 6. h/o COPD 7. h/o CVA 8. h/o Depresion 9. Reactive thrombocytosis 10.history of migraine 11. ? h/o thryoid nodule w/ normal TSH Complaints: pain scale (0-10) Tele-Events Since Last Visit: Normal sinus rhythm with no acute events Subjective: Patient was seen and examined this morning. She is alert awake and oriented to time place and person. Patient reports abdomen pain mostly right upper quadrant. Denies any nausea and vomiting this morning. Denies any more episodes of diarrhea. No melena, hematochezia, hematemesis. Patient denied any chest pain, palpitations, short of breath this morning. Reports lower extremity bilateral weakness. No focal neurologic deficits. Denied any speech changes, gait changes. However patient reports tingling and numbness bilateral lower extremities. Vitals stable afebrile, heart rate 89, respiratory rate 18, blood pressure 160/ 100, saturating at 98 on room Review of Systems Constitutional: Reports: see HPI. Objective Last 24 Hrs of Vital Signs/I&O Vital Signs Date Time Temp Pulse Resp B/P B/P Pulse O2 O2 Flow FiO2 Mean Ox Delivery Rate 03/04 0721 98.6 71 20 126/84 94 Room Air 03/04 0024 98.5 72 20 174/98 96 Room Air 03/03 2224 98.1 74 16 184/83 98 Room Air 03/03 1921 Room Air 03/03 1920 98.2 78 18 141/78 96 Room Air / 1638 98.5 89 18 160/103 98 Room Air Intake & Output 03/04 1600 03/04 0800 07 0000 Intake Total 34 Output Total Balance 34 Intake, IV 34 Patient 109.316 kg 108.862 kg Weight Weight Bed scale Reported by Patient Measurement Method Physical Exam General Appearance: Alert, Oriented X3, Cooperative, No Acute Distress Other Physical Findings: Skin: No rashes, no breakdown; HEENT: PERRLA, EOMI; Neck: Supple, No JVD; No cervical lymphadenopathy; CVS: Reg Rate, Normal S1,S2, No MGR; Resp: Normal air entry, no ronchi/rales; Abdomen: Soft, RUQ tenderness, murphys positive, Normal Bowel Sounds; Neuro: Normal Speech, Strength 5/5 b/l x 4 extremities, Sensation intact L<R, CN III-XII NL, Reflexes 2+, cerebellar tests negative, gait could not be tested, since she felt weak in her lower extremities; Extremities: No cyanosis, no pedal edema. Current Medications: Current Medications Sig/Sonia Start time Last Medication Dose Route Stop Time Status Admin Acetaminophen 650 MG Q8P PRN 03/04 0115 AC 03/04 PO 1037 Acetaminophen 1,000 MG ONCE ONE 03/03 2115 DC 03/03 N/A 1 UNIT IV 03/03 Acetaminophen 0 .STK-MED ONE 03/03 2107 DC IV Aspirin 81 MG ONCE ONE 03/04 0045 DC 03/04 PO 03/04 0046 0125 Aspirin Buffered 81 MG DAILY 03/04 900 AC 03/04 PO 0913 Atorvastatin Calcium 40 MG 1700 03/04 1700 AC PO Budesonide/ 2 PUF BID 03/04 09 AC 03/04 Formoterol Fumarate INH 0915 Clonazepam 1 MG .[BIDP] PRN 03/04 0100 AC 03/04 PO 03/11 0059 0125 Clopidogrel Bisulfate 75 MG DAILY 03/04 09 AC 03/04 PO 0913 Gabapentin 100 MG Q8 03/04 06 AC 03/04 PO 0649 Heparin Sodium 5,000 UNIT Q8 03/04 06 AC 03/04 (Porcine) SC 0649 Insulin Detemir 15 UNITS BID 03/04 09 AC 03/04 SC 0913 Insulin Human Regular 0 Q6 03/04 0100 AC 03/04 SC 0126 Lorazepam 0.5 MG 0803/04 1015 DC 03/04 PO 03/04 1016 1019 Montelukast Sodium 10 MG 0 03/04 2200 AC PO Morphine Sulfate 2 MG Q4P PRN 03/04 0100 AC 03/04 IV 0650 Morphine Sulfate 2 MG ONCE ONE 03/03 2115 DC 03/03 IV 03/03 Morphine Sulfate 0 .STK-MED ONE 03/03 2108 DC .ROUTE Nicotine 21 MG DAILY 03/04 900 AC 03/04 TOP 0914 Nitroglycerin 0.5 GM Q6 03/04 600 03/04 TOP 0655 Ondansetron HCl 4 MG ONCE ONE 03/04 100 DC 03/04 IV 03/04 0101 0126 Pantoprazole Sodium 40 MG DAILY 03/04 900 AC 03/04 IV 09 Quetiapine Fumarate 200 MG DAILY 03/04 900 AC 03/04 PO 0913 Quetiapine Fumarate 400 MG QPM 03/04 0130 AC 03/04 PO 0234 Sodium Chloride 1,000 ML .Q20H 03/04 0045 AC IV Trazodone HCl 200 MG AT BEDTIME 03/04 2100 DC PO Trazodone HCl 100 MG AT BEDTIME 03/04 2100 AC PO Last 24 Hrs of Lab/Gal Results Last 24 Hrs of Labs/Mics: Laboratory Tests 03/04/18 1035: Troponin I < 0.01 03/04/18 0637: Anion Gap 12, Estimated GFR 57 L, BUN/Creatinine Ratio 13.0, Total Bilirubin 0.3, Direct Bilirubin 0.2, AST 61 H, ALT 80 H, Alkaline Phosphatase 259 H, Total Protein 7.0, Albumin 4.0, PT 11.2, INR 1.03, CBC w Diff NO MAN DIFF REQ, RBC 4.68, MCV 76.5 L, MCH 24.0 L, MCHC 31.4 L, RDW 16.4 H, MPV 9.4, Gran % 51.8, Lymphocytes % 38.8, Monocytes % 5.7, Eosinophils % 3.2, Basophils % 0.5, Absolute Granulocytes 5.0, Absolute Lymphocytes 3.8 H, Absolute Monocytes 0.6, Absolute Eosinophils 0.3, Absolute Basophils 0 03/04/18 0230: Troponin I < 0.01 03/03/18 2055: Troponin I < 0.01 03/03/18 1659: Anion Gap 15, Estimated GFR 57 L, BUN/Creatinine Ratio 12.0, Glucose 203 H, Calcium 10.1, Magnesium 1.3 L, Total Bilirubin 0.3, AST 67 H, ALT 94 H, Alkaline Phosphatase 282 H, Troponin I < 0.01, Total Protein 8.0, Albumin 4.7, Globulin 3.3, Albumin/Globulin Ratio 1.4, TSH &T3 &Free T4 Intrp 2.010, D-Dimer High Sensitivty < 200 03/03/18 1559: CBC w Diff NO MAN DIFF REQ, RBC 4.85, MCV 76.9 L, MCH 24.2 L, MCHC 31.5 L, RDW 16.4 H, MPV 9.1, Gran % 65.5, Lymphocytes % 25.9, Monocytes % 5.9, Eosinophils % 2.2, Basophils % 0.5, Absolute Granulocytes 7.5 H, Absolute Lymphocytes 3.0, Absolute Monocytes 0.7 H, Absolute Eosinophils 0.2, Absolute Basophils 0.1 Assessment/Plan Assessment: Ms Bolden is a 58 year old woman w/a PMHx of 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 2011), CVA x 3 episodes( last admission to 11/14) was sent to the ER by her PCP w/ a chief concern of "elevated heart rate", and evaluation of chest pain. Vitals-temperature 98.5, pulse rate 89, respiration 18, blood pressure 160/103-- 141/78, 98% on room air. Pertinent Lab findings: WBC 11.5 ( granulocytes 65%), platelet count 464 Hemoglobin 11.8, MCV 76.9, hematocrit 37.3 (microcytic) Sodium 142, potassium 3.7, magnesium 1.3, bicarbonate 27, anion gap 15, Renal function-BUN 12, creatinine 1.0. Glucose 203, hemoglobin A1c 8.4 (02/11/2018). Liver chemistries-AST 67, AST 94, alkaline phosphatase 282 (baseline 67 u/l on 10/2017), Tbili 0.3 Albumin 4.7, INR pending Troponin I-0.01, 0.01 D-dimer less than 200. TSH 2.01 EKG revealed normal sinus rhythm, no acute ST-T wave changes. Ct head: no acute intracranial hemorrhage or territorial infarction. Chronic infarcts in the deep soriano matter structures and right cerebellar hemisphere, as noted on prior imaging with moderate chronic white matter microangiopathy. The possibility of a focal acute ischemic process cannot be ruled out on the basis of this study. US RUQ abdomen imited imaging due to body habitus. No gallstones but the patient is tender over the gallbladder. CBD ( 1cm) mildly prominent without definite choledocholithiasis. Chest x ray- no acute cardiopulmonary findings: Chest pain / unstable angina Etiology in this case is likely unstable angina with symptoms of chest discomfort associated with dyspnea given her positive risk factors, smoking, type 2 diabetes uncontrolled, hyperlipidemia, hypertension. She needs to be risk stratified. Patient also provides prior history of coronary artery disease status post stent placement in 2011? However not sure about the details. She has been taking aspirin and Plavix since then. * Continue telemetry monitoring * Serial troponin and EKGs * Monitor vitals every shift * EKG showed subtle ST-T changes ST depression. * Rn Neurology on board * Continue aspirin and Plavix. * Continue statin * Patient may need cardiac catheterisation to look for any new coronary artery disease. In least case if she does not get cardiac cath we should risk stratify her with stress test * Follow-up cardiology recommendations * Depending on neurology input, the patient would also benefit from further cardiac evaluation to rule out cardiac sources of embolic disease in view of her history of prior strokes, reportedly normal carotid artery studies Biliary colic Given her abdominal discomfort/tenderness and abnormal liver enzymes, and also She has a history of possible choledocholithiasis, and given elevation of AST, ALT, alkaline phosphatase points towards possible obstruction in the biliary system. Ultrasound abdomen, however was unremarkable. At this time, she does not appear to be septic, or has any ascending cholangitis. There is possibility of biliary colic given exacerbation of her symptoms after eating. * Pending MRCP to look for any choledocholithiasis. In case of choledocholithiasis patient may need ERCP. needs to be transferred to higher facility. * Follow-up daily LFTs, INR. * Surgical consult. * We will monitor him off from antibiotics. * In case if he she spikes, if WBC count elevates we will treat her with antibiotics for cholangitis. * Pain management. Lower extremity weakness She also reported continued weakness of her upper and lower extremities, and had slurring of speech associated with tingling numbness sensation of her face on occasion. She also reported ataxia and imbalance while walking, which is chronic that has resulted in a mechanical fall recently. MRA head was done which showed no mass, no acute infarction or bleeding. Redemonstration of chronic infarcts in the right frontal lobe, basal ganglia, thalamus, right cerebellum. * Fall precautions * Neurochecks * Physical therapy consult Hyperlipidemia continue statin Hypertension continue amlodipine from tomorrow Diabetes mellitus continue insulin sliding scale and Accu-Cheks Peripheral neuropathy continue gabapentin 100 every 8 Anxiety continue clonazepam home dose GERD continue omeprazole daily Insomnia continue trazodone 200 at bedtime Mental health continue Seroquel home dose DVT PPx- heparin sc NPO Full code Problem List: 1. Unstable angina 2. Chest pain 3. Biliary colic 4. Headache Pain Ratin Pain Location: ABDOMIEN Pain Goal: Remain pain free Pain Plan: TYLENOL Tomorrow's Labs & Rationales: CBC BEP INR LFT Shamir Owenscarlos 03/04/18 1302: Attending MD Review Statement Attending Statement Attending MD Statement: examined this patient, discuss w/resident/PA/RAIL DOWELING MACHINE OPERATOR, agreed w/resident/PA/RAIL DOWELING MACHINE OPERATOR, reviewed EMR data (avail), discussed with nursing, discussed with case mgmt Attending Assessment/Plan: abdominal pain RUQ with RUQ tenderness. will repeat LFTs in am and will get MRCP. will get surgery consult. cont to monitor closely for increasing wbc , fever or worsening LFTs Chest pain pressure like on and off over the last few days. will get cardiology consult and will f/u on their recommendatiosn. Pt has h/o cad and stenting in past and is on antiplatelet therapy . pt also is an active smoker. will need to monitor closely. Numbness in Lower extremity- likely secondary to peripheral neuropathy. plan to get MRI brain. d/w pt the care plan.
[2018-03-04 08:11] LABS: ABSOLUTE BASOPHIL COUNT 0 /CUMM (0.0-0.2); ABSOLUTE EOSINOPHIL COUNT 0.3 /CUMM (0.0-0.7); ABSOLUTE LYMPH COUNT 3.8 /CUMM (1.2-3.4); ABSOLUTE MONOCYTE COUNT 0.6 /CUMM (0.10-0.60); BASOPHIL % 0.5 % (0.0-2.0); EOSINOPHIL % 3.2 % (0-5); GRANULOCYTE % 51.8 % (42.2-75.2); HEMATOCRIT 35.8 % (37-47); MEAN CORPUSCULAR HGB CONC 31.4 G/DL (33.0-37.0); MEAN CORPUSCULAR VOLUME 76.5 FL (81.0-99.0); MEAN PLATELET VOLUME 9.4 FL (7.4-10.4); PLATELET COUNT 406 /CUMM (130-400); RBC DISTRIBUTION WIDTH 16.4 % (11.5-14.5); RED BLOOD CELL CT 4.68 /CUMM (4.20-5.40); WHITE BLOOD CELL COUNT 9.7 /CUMM (4.8-10.8)
[2018-03-04 08:13] LABS: PT 11.2 SEC (9.4-12.5)
--- NOTE | 2018-03-04 10:07 | Cons- Gastroenterology ---
General Information and HPI Consulting Request Date of Consult: 03/04/18 Requested By: Kirsten Becerra MD Reason for Consult: Increased LFTs, abdominal pain, nausea and vomiting. Source of Information: patient Exam Limitations: no limitations History of Present Illness: Ms. Bolden is a 58 year old female with a PMH significant for CAD, HTN, ROBBIN, DM, and hyperlipidemia who presented to yesterday with complaints of upper abdominal pain and chest pain. She notes that for the past 3 weeks she has been having mid-epigastric to ruq abdominal pain which is exacerbated by anything she eats. This pain was especially severe yesterday causing her to come to the ER. She has also been having intermittent bilious vomiging. The pain is sharp and radiates to her back. She denies any burning pain, heartburn, dysphagia or hematemesis. She has not had any fevers. She notes that over the past few days her urine has been dark and her stools have been black. She is without any rectal bleeding. She notes that the pain is similar to pain she had a year ago for which she was admitted to [facility] and had an US that showed gallstones. She wasn't sure why she did not have her gallbladder removed at that time stating that she was given medication to dissolve the stones which she is no longer taking. It also sounds like she may have had an ERCP during that hospitalization, but she wasn't certain of this. On presentation yesterday she was afebrile and hemodynamically stable. She was noted to have increases transaminases and an increased alk phos with a normal bilirubin and an US showed a prominent CBD at 1cm without definitive choledocolithiasis or evidence of cholecystitis albeit she did have a positive sonographic murphys sign. She was admitted to telemetry overnight where she has had 2 negative troponins and she has remained afebrile and hemodynamically stable. She also still has some RUQ pain although it is somewhat improved from yesterday. Allergies/Medications Allergies: Coded Allergies: lithium (Intermediate, "OUT OF MY MIND" 02/12/17) ibuprofen (Mild, HIVES 02/12/17) adhesive tape (PAPER TAPE CAUSES A RASH - OKAY WITH OTHER TAPES PER PT 05/23/17 ) divalproex sodium (From DEPAKOTE) (HALLUCINATE 11/05/17) tramadol (RASH 11/05/17) Home Med List: Amlodipine Besylate 10 MG TABLET 1 TAB PO DAILY HEART (Reported) . Aspirin (Ecotrin*) 81 MG TABLET.DR 81 MG PO DAILY HEART Atorvastatin Calcium 80 MG TABLET 40 MG PO 1700 STROKE PREVENTION Calcipotriene 0.005 % CREAM..G. 1 BILL TOP DAILY FEET (Reported) Canagliflozin (Invokana) (Unknown Strength) TABLET (Unknown Dose) PO TID DM ( Reported) Clonazepam 1 MG TABLET 1 TAB PO BIDP PRN Anxiety (Reported) Clopidogrel Bisulfate (Plavix) 75 MG TABLET 75 MG PO DAILY STROKE PREVENTION Cyclosporine (Restasis) 0.05 % DROPERETTE 1 GTT OPH BID eyes (Reported) Fluticasone-Salmeterol (Advair 100-50 Diskus) 100 MCG-50 MCG/DOSE BLST.W.DEV 1 PUF INH BID RESP. (Reported) Gabapentin 100 MG CAPSULE 100 MG PO Q8 NEUROPATHY Insulin Detemir (Levemir) 100 UNIT/ML VIAL 46 UNITS SC QPM DM (Reported) Insulin Lispro (Humalog Kwikpen U-100) (Unknown Strength) INSULN.PEN 12 UNITS SC TIDAC DM (Reported) Metformin HCl 500 MG TABLET 1 TAB PO BID DIABETES (Reported) Montelukast Sodium 10 MG TABLET 1 TAB PO DAILY ALLERGIES/RESP (Reported) Nicotine (Nicotine Patch) 21 MG/24 HOUR PATCH.TD24 21 MG TOP DAILY smoking cessation Omeprazole 20 MG CAPSULE.DR 40 MG PO DAILY AC ACID REFLUX Polycarbophil (Fiber) (Unknown Strength) TABLET (Unknown Dose) PO DAILY SUPPLEMENT (Reported) Quetiapine Fumarate (Seroquel) 100 MG TABLET 2 TAB PO DAILY MENTAL HEATLH ( Reported) Quetiapine Fumarate (Seroquel) 200 MG TABLET 2 TAB PO QHS MENTAL HEALTH ( Reported) Trazodone HCl 100 MG TABLET 2 TAB PO QHS MENTAL HEALTH AND SLEEP (Reported) Vit C/E/Zn/Coppr/Lutein/Zeaxan (Preservision Areds 2 Softgel) 250-200-40 CAPSULE 1 CAP PO BID SUPPLEMENT (Reported) Current Medications: Current Medications Sig/Sonia Start time Last Medication Dose Route Stop Time Status Admin Acetaminophen 650 MG Q8P PRN 03/04 0115 AC PO Acetaminophen 1,000 MG ONCE ONE 03/03 2115 DC 03/03 N/A 1 UNIT IV 03/03 Acetaminophen 0 .STK-MED ONE 03/03 2107 DC IV Aspirin 81 MG ONCE ONE 03/045 DC 03/04 PO 03/04 004 0125 Aspirin Buffered 81 MG DAILY 03/04 900 AC PO Atorvastatin Calcium 40 MG 1700 03/04 1700 AC PO Budesonide/ 2 PUF BID 03/04 900 AC Formoterol Fumarate INH Clonazepam 1 MG .[BIDP] PRN 03/04 0100 AC 03/04 PO 03/11 0059 0125 Clopidogrel Bisulfate 75 MG DAILY 03/04 900 AC PO Gabapentin 100 MG Q8 03/04 600 AC 03/04 PO 0649 Heparin Sodium 5,000 UNIT Q8 03/04 600 AC 03/04 (Porcine) SC 0649 Insulin Detemir 15 UNITS BID 03/04 900 AC SC Insulin Human Regular 0 Q6 03/04 0100 AC 03/04 SC 0126 Montelukast Sodium 10 MG 2200 03/04 2200 AC PO Morphine Sulfate 2 MG Q4P PRN 03/04 0100 AC 03/04 IV 0650 Morphine Sulfate 2 MG ONCE ONE 03/03 2115 DC 03/03 IV 03/03 Morphine Sulfate 0 .STK-MED ONE 03/03 2108 DC .ROUTE Nicotine 21 MG DAILY 03/04 900 AC TOP Nitroglycerin 0.5 GM Q6 03/04 600 AC 03/04 TOP 0655 Ondansetron HCl 4 MG ONCE ONE 03/04 100 DC 03/04 IV 03/04 0101 0126 Pantoprazole Sodium 40 MG DAILY 03/04 900 AC IV Quetiapine Fumarate 200 MG DAILY 03/04 900 AC PO Quetiapine Fumarate 400 MG QPM 03/04 0130 AC 03/04 PO 0234 Sodium Chloride 1,000 ML .Q20H 03/04 0045 AC IV Trazodone HCl 200 MG AT BEDTIME 03/04 2100 DC PO Trazodone HCl 100 MG AT BEDTIME 03/04 2100 UNVr PO Past History Travel History Traveled to [place] past 21 day No Medical History Blood Transfusion Hx: No Neurological: CVA HEMORRAGIC EENT: NONE Cardiovascular: hypertension Respiratory: obstructive sleep apnea Gastrointestinal: NONE Hepatic: NONE Renal: NONE Musculoskeletal: NONE Psychiatric: NONE Endocrine: diabetes Blood Disorders: NONE Cancer(s): NONE CLINICAL NURSE/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 FATHER (History of cancer). Psychosocial History Where Do You Live? Home Who Do You Live With? self Services at Home: None Primary Language: British Smoking Status: Light Tobacco Smoker ETOH Use: denies use Functional Ability ADLs Independent: dressing, eating, toileting, bathing. Ambulation: cane IADLs Independent: shopping, housework, finances, food prep, telephone, transportation , medication admin. Review of Systems Review of Systems Constitutional: Reports: chills. Denies: diaphoresis, fever, malaise, weakness, unexplained weight loss. EENTM: Denies: no symptoms, icterus. Cardiovascular: Reports: chest pain. Denies: edema, orthopena, palpitations, peripheral edema. Respiratory: Reports: short of breath. Denies: cough, hemoptysis, orthopnea. GI: Reports: see HPI. Genitourinary: Denies: no symptoms. Musculoskeletal: Denies: no symptoms. Skin: Denies: no symptoms. Neurological/Psychological: Denies: no symptoms. Hematologic/Endocrine: Denies: no symptoms. Immunologic/Allergic: Denies: no symptoms. All Other Systems: Reviewed and Negative Exam & Diagnostic Data Vital Signs and I&O Vital Signs Date Time Temp Pulse Resp B/P B/P Pulse O2 O2 Flow FiO2 Mean Ox Delivery Rate 03/04 721 98.6 71 20 126/84 94 Room Air 03/04 0024 98.5 72 20 174/98 96 Room Air 03/034 98.1 74 16 184/83 98 Room Air 03/03 1921 Room Air 03/03 192 98.2 78 18 141/78 96 Room Air 03/03 1638 98.5 89 18 160/103 98 Room Air Intake & Output 03/04 1600 03/04 04003/03 1600 03/03 04003/02 Intake Total Output Total Balance Patient 241 lb Weight Weight Bed scale Measurement Method Physical Exam General Appearance: well developed/nourished, no apparent distress, alert, awake , comfortable Head: atraumatic, normal appearance Eyes: Bilateral: normal appearance. Ears, Nose, Throat: normal pharynx, normal ENT inspection, hearing grossly normal Neck: normal inspection, supple, full range of motion Respiratory: normal breath sounds, chest non-tender, no respiratory distress, quiet respiration Cardiovascular: regular rate/rhythm Gastrointestinal: normal bowel sounds, soft, no organomegaly, tenderness Rectal: deferred Back: normal inspection, normal range of motion Extremities: normal inspection, no edema Neurologic/Psych: no motor/sensory deficits, awake, alert, oriented x 3 Skin: intact, normal color, warm/dry Results Pertinent Lab Results: Laboratory Tests 03/04 03/04 03/03 03/03 0637 0230 2055 1659 Chemistry Sodium (137 - 145 mmol/L) Pending 142 Potassium (3.5 - 5.1 mmol/L) Pending 3.7 Chloride (98 - 107 mmol/L) Pending 100 Carbon Dioxide (22 - 30 mmol/L) Pending 27 Anion Gap (5 - 16) Pending 15 BUN (7 - 17 mg/dL) Pending 12 Creatinine (0.5 - 1.0 mg/dL) Pending 1.0 Estimated GFR (>60 ml/min) 57 L BUN/Creatinine Ratio (7 - 25 %) Pending 12.0 Glucose (65 - 99 mg/dL) 203 H Calcium (8.4 - 10.2 mg/dL) 10.1 Magnesium (1.6 - 2.3 mg/dL) 1.3 L Total Bilirubin (0.2 - 1.3 mg/dL) Pending 0.3 Direct Bilirubin Pending AST (14 - 36 U/L) Pending 67 H ALT (9 - 52 U/L) Pending 94 H Alkaline Phosphatase (<127 U/L) Pending 282 H Troponin I (< 0.11 ng/ml) < 0.01 < 0.01 < 0.01 Total Protein (6.3 - 8.2 g/dL) Pending 8.0 Albumin (3.5 - 5.0 g/dL) Pending 4.7 Globulin (1.9 - 4.2 gm/dL) 3.3 Albumin/Globulin Ratio (1.1 - 2.2 %) 1.4 TSH &T3 &Free T4 Intrp (0.270 - 4.20 uIU/mL) 2.010 Coagulation PT Pending INR Pending D-Dimer High Sensitivty (0 - 243 ng/ml) < 200 Hematology CBC w Diff Pending WBC Pending RBC Pending Hgb Pending Hct Pending MCV Pending MCH Pending MCHC Pending RDW Pending Plt Count Pending MPV Pending 03/03 155 Hematology CBC w Diff NO MAN DIFF REQ WBC (4.8 - 10.8 /CUMM) 11.5 H RBC (4.20 - 5.40 /CUMM) 4.85 Hgb (12.0 - 16.0 G/DL) 11.8 L Hct (37 - 47 %) 37.3 MCV (81.0 - 99.0 FL) 76.9 L MCH (27.0 - 31.0 PG) 24.2 L MCHC (33.0 - 37.0 G/DL) 31.5 L RDW (11.5 - 14.5 %) 16.4 H Plt Count (130 - 400 /CUMM) 464 H MPV (7.4 - 10.4 FL) 9.1 Gran % (42.2 - 75.2 %) 65.5 Lymphocytes % (20.5 - 51.1 %) 25.9 Monocytes % (1.7 - 9.3 %) 5.9 Eosinophils % (0 - 5 %) 2.2 Basophils % (0.0 - 2.0 %) 0.5 Absolute Granulocytes (1.4 - 6.5 /CUMM) 7.5 H Absolute Lymphocytes (1.2 - 3.4 /CUMM) 3.0 Absolute Monocytes (0.10 - 0.60 /CUMM) 0.7 H Absolute Eosinophils (0.0 - 0.7 /CUMM) 0.2 Absolute Basophils (0.0 - 0.2 /CUMM) 0.1 Imaging/Other Studies: SERVICE DATE: 03/03/18 EXAM TYPE: US - US-LIMITED ABDOMEN EXAMINATION: US ABDOMEN LIMITED CLINICAL INFORMATION: Right upper quadrant pain. COMPARISON: None TECHNIQUE: Real-time imaging of the right upper quadrant abdominal viscera. FINDINGS: PANCREAS: Normal. LIVER: Enlarged measuring 20.8 cm no focal lesion. No biliary dilatation. GALLBLADDER: Normal. The gallbladder is physiologically distended without evidence of stones, sludge, polyps, wall thickening or pericholecystic fluid. Patient reportedly however tender over the gallbladder. COMMON BILE DUCT: Normal in caliber measuring 1 cm in diameter. RIGHT KIDNEY: Normal. No hydronephrosis. No renal calculi or focal parenchymal lesions. The kidney measures 10.7 cm in maximum dimension. FREE FLUID: None. IMPRESSION: Limited imaging due to body habitus. No gallstones but the patient is tender over the gallbladder. CBD mildly prominent without definite choledocholithiasis. Consider MRCP as warranted clinically. Nonspecific moderate hepatomegaly. No focal lesion. Assessment/Plan Assessment/Recommendations: Assessment: Ms. Bolden is a 58 year old female with multiple medical problems who presented yesterday with worsening RUQ pain of uncertain etiology, but considering her increased LFTs I suspect it is related to biliary colic with the exacerbation of her symptoms being from a passed gallstone. While she didn't have any gallstones on her US yesterday her CBD was mildly dilated at 1cm and her history of pain after eating is consistent with biliary colic. As she notes that she had similar symptoms about a year ago at [facility] when she was told she had stones it is possible she may have had an ERCP as opposed to a CCY ( perhaps surgical risk was felt to be too high at that time) which may account for her not increasing her bilirubin. While she does still have some RUQ pain on PE she did not have sonographic evidence of cholecystitis on ultrasound, her white blood cell count has remained normal, and she has been afebrile so I do not feel that she has cholangitis and I feel that she can continue to be monitored off of antibiotics. An ERCP may ultimately be necessary, but not if it turns out that this has already been done in which case any stones she may have will sponaneously pass provided a sphincterotomy was done. Recommendation: 1. Follow up am LFTs and INR 2. Check an MRCP to look for choledocolithiasis 3. Surgical consultation 4. Obtain records from last year hospitalization at [facility] in particular for any imaging and if an ERCP was performed 5. Notify GI for signs of cholangitis, but would continue to monitor off of antibioics for now. 6. Analgesia as needed. I will continue to follow this patient and make further recommendations based on her clinical course, follow LFTs and MRCP. Problem List: 1. Biliary colic Copies To: Doris ALAMO,Doris Consult Acknowledgment - Thank you for your consult request.
--- NOTE | 2018-03-04 11:49 | Discharge Summary ---
Visit Information Visit Dates Admission Date: 03/03/18 Discharge Date: 03/08/2018 Hospital Course Course Attending Physician: Graciela ALAMO,Charla Vergara Primary Care Physician: Dor[facility] Course: Ms Bolden is a 58 year old woman w/a PMHx of 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 2011), CVA x 3 episodes( last admission to 11/14) was sent to the ER by her PCP w/ a chief concern of "elevated heart rate", and evaluation of chest pain. Vitals-temperature 98.5, pulse rate 89, respiration 18, blood pressure 160/103-- 141/78, 98% on room air. Pertinent Lab findings: WBC 11.5 ( granulocytes 65%), platelet count 464 Hemoglobin 11.8, MCV 76.9, hematocrit 37.3 (microcytic) Sodium 142, potassium 3.7, magnesium 1.3, bicarbonate 27, anion gap 15, Renal function-BUN 12, creatinine 1.0. Glucose 203, hemoglobin A1c 8.4 (02/11/2018). Liver chemistries-AST 67, AST 94, alkaline phosphatase 282 (baseline 67 u/l on 10/2017), Tbili 0.3 Albumin 4.7, INR pending Troponin I-0.01, 0.01 D-dimer less than 200. TSH 2.01 EKG revealed normal sinus rhythm, no acute ST-T wave changes. Ct head: no acute intracranial hemorrhage or territorial infarction. Chronic infarcts in the deep soriano matter structures and right cerebellar hemisphere, as noted on prior imaging with moderate chronic white matter microangiopathy. The possibility of a focal acute ischemic process cannot be ruled out on the basis of this study. US RUQ abdomen imited imaging due to body habitus. No gallstones but the patient is tender over the gallbladder. CBD ( 1cm) mildly prominent without definite choledocholithiasis. Chest x ray- no acute cardiopulmonary findings: ---- Chest pain / unstable angina Etiology in this case is likely unstable angina with symptoms of chest discomfort associated with dyspnea given her positive risk factors, smoking, type 2 diabetes uncontrolled, hyperlipidemia, hypertension. Patient also provides prior history of coronary artery disease status post stent placement in 2011? However not sure about the details. She has been taking aspirin and Plavix since then. Admitted to telemetry floor, monitored continuously for any arrhythmias. Serial troponin and EKG were negative. Electric Blasting Cap Assembler Dr. Galeano on board. She was continued on aspirin and Plavix. Normal Persantine stress and resting myocardial perfusion study. Minimal abnormality suggested in the apical anterior wall on both the stress and rest images is likely due to attenuation by overlying breast soft tissues, and there is no associated wall motion abnormality. Left ventricular wall motion and ejection fraction are normal. Biliary colic Given her abdominal discomfort/tenderness and abnormal liver enzymes, and history of possible choledocholithiasis, and given elevation of AST, ALT, alkaline phosphatase points towards possible obstruction in the biliary system. Ultrasound abdomen was done, however was unremarkable. There is possibility of biliary colic given exacerbation of her symptoms after eating. MRCP was negative for choledocholithiasis. She was monitored off from antibiotics. Adequate pain management was provided, continued on regular diet General surgery on board, recommended HIDA scan as an outpatient. She is going to follow-up with Dr. Simms general surgeon and will get HIDA scan. She was advised to avoid fatty foods. Lower extremity weakness She reported continued weakness of her upper and lower extremities, and had slurring of speech associated with tingling numbness sensation of her face on occasion. She also reported ataxia and imbalance while walking, which is chronic that has resulted in a mechanical fall recently. MRA head was done which showed no mass, no acute infarction or bleeding. Redemonstration of chronic infarcts in the right frontal lobe, basal ganglia, thalamus, right cerebellum was shown. Hyperlipidemia continued statin Hypertension continued amlodipine Diabetes mellitus continued insulin sliding scale and Accu-Cheks Peripheral neuropathy continued gabapentin 100 every 8hrs Anxiety continued clonazepam home dose GERD continued omeprazole daily Insomnia continued trazodone 200 at bedtime Mental health continued Seroquel home dose, zoloft. DVT PPx- heparin sc ccs diet Full code Allergies: Coded Allergies: lithium (Intermediate, "OUT OF MY MIND" 02/12/17) ibuprofen (Mild, HIVES 02/12/17) adhesive tape (PAPER TAPE CAUSES A RASH - OKAY WITH OTHER TAPES PER PT 05/23/17 ) divalproex sodium (From DEPAKOTE) (HALLUCINATE 11/05/17) tramadol (RASH 11/05/17) Pertinent Lab Results: HEAD CT No acute intracranial hemorrhage or territorial infarction. Chronic infarcts in the deep soriano matter structures and right cerebellar hemisphere, as noted on prior imaging with moderate chronic white matter microangiopathy. The possibility of a focal acute ischemic process cannot be ruled out on the basis of this study. US ABD Limited imaging due to body habitus. No gallstones but the patient is tender over the gallbladder. CBD mildly prominent without definite choledocholithiasis. Consider MRCP as warranted clinically. Nonspecific moderate hepatomegaly. No focal lesion. CXR No acute cardiopulmonary findings MRI ABDOMEN 1. No MR evidence of biliary obstruction. Specifically the common bile duct appears normal in course, caliber and does not show any intraluminal filling defect. 2. Morphologically unremarkable gallbladder. 3. Nonspecific T2 hyperintensity at L2, and L2 vertebral bodies, suboptimally evaluated on this limited study, of indeterminate etiology. MRI HEAD - No mass lesion, acute infarction, or abnormal intracranial enhancement. - Redemonstration of chronic infarcts in the right frontal lobe, bilateral meneses radiata, basal ganglia, thalami, and right cerebellum. - Moderate small vessel ischemic changes in the cerebral white matter. - Mild diffuse brain parenchymal volume loss. Nuclear stress test Probable normal Persantine stress and resting myocardial perfusion study. Minimal abnormality suggested in the apical anterior wall on both the stress and rest images is likely due to attenuation by overlying breast soft tissues, and there is no associated wall motion abnormality. Left ventricular wall motion and ejection fraction are normal. Disposition Summary Disposition Principal Diagnosis: 1. Unstable angina 2. bILIARY COLIC/Possible choledocholithiasis 3. b/l le weekness Additional Diagnosis: HEADACHE Discharge Disposition: home or self care Discharge Instructions General Discharge Information Code Status: Full Code Patient's Diet: As tolerated Patient's Activity: As tolerated Follow-Up Instructions/Appts: F/U PCP IN ONE WEEK AFTER DISCHARGE. F/U PROPERTY AND SUPPLY OFFICER IN ONE WEEK AFTER DISCHARGE. F/U CYBER SECURITY MANAGER IN ONE WEEK AFTER DISCHARGE. F/U SURGERY IN ONE WEEK AFTER DISCHARGE. DR SIMMS PLANNING FOR OUTPATIENT HIDA SCAN after discharge Medications at Discharge Discharge Medications: Continue taking these medications: Quetiapine Fumarate (Seroquel) 100 MG TABLET 2 Tablet ORAL DAILY Comments: Last Taken:11/09/17 Time:1000 Quetiapine Fumarate (Seroquel) 200 MG TABLET 2 Tablet ORAL TAKE AT BEDTIME Comments: Last Taken:11/08/17 Time:2200 Trazodone HCl (Trazodone HCl) 100 MG TABLET 2 Tablet ORAL TAKE AT BEDTIME Comments: Last Taken:11/08/17 Time:2200 Amlodipine Besylate (Amlodipine Besylate) 10 MG TABLET 1 Tablet ORAL DAILY Instructions: . Canagliflozin (Invokana) (Unknown Strength) TABLET Unknown Dose ORAL THREE TIMES DAILY Metformin HCl (Metformin HCl) 500 MG TABLET 1 Tablet ORAL TWICE DAILY Vit C/E/Zn/Coppr/Lutein/Zeaxan (Preservision Areds 2 Softgel) 250-200-40 CAPSULE 1 Capsule ORAL TWICE DAILY Polycarbophil (Fiber) (Unknown Strength) TABLET Unknown Dose ORAL DAILY Insulin Detemir (Levemir) 100 UNIT/ML VIAL 46 Units Inject into fatty tissue Every night Comments: Last Taken:11/08/17 Time:2200 Insulin Lispro (Humalog Kwikpen U-100) (Unknown Strength) INSULN.PEN 12 Units Inject into fatty tissue 3 TIMES DAILY BEFORE MEALS Comments: Last Taken:11/09/17 Time:0900 Clonazepam (Clonazepam) 1 MG TABLET 1 Tablet ORAL 2 x Daily as needed as needed for Anxiety Qty = 40 Comments: Last Taken:11/09/17 Time:0600 Cyclosporine (Restasis) 0.05 % DROPERETTE 1 Drop In the eye TWICE DAILY Qty = 60 Comments: Last Taken:11/09/17 Time:0900 Nicotine (Nicotine Patch) 21 MG/24 HOUR PATCH.TD24 21 Milligram On the skin DAILY Qty = 7 Comments: Last Taken:11/09/17 Time:1000 Clopidogrel Bisulfate (Plavix) 75 MG TABLET 75 Milligram ORAL DAILY Qty = 30 Comments: Last Taken:11/09/17 Time:1000 Atorvastatin Calcium (Atorvastatin Calcium) 80 MG TABLET 40 Milligram ORAL 5 PM Qty = 30 Comments: Last Taken:11/08/17 Time:1700 Aspirin (Ecotrin*) 81 MG TABLET. 81 Milligram ORAL DAILY Qty = 30 Comments: Last Taken:11/09/17 Time:1000 Gabapentin (Gabapentin) 100 MG CAPSULE 100 Milligram ORAL EVERY 8 HOURS Qty = 90 Comments: Last Taken:11/09/17 Time:0600 Omeprazole (Omeprazole) 20 MG CAPSULE. 40 Milligram ORAL DAILY BEFORE BREAKFAST Qty = 30 Comments: Last Taken:11/09/17 Time:0700 Fluticasone-Salmeterol (Advair 100-50 Diskus) 100 MCG-50 MCG/DOSE BLST.W.DEV 1 Puff Inhale through mouth TWICE DAILY Qty = 60 Calcipotriene (Calcipotriene) 0.005 % CREAM..G. 1 Application On the skin DAILY Qty = 120 Montelukast Sodium (Montelukast Sodium) 10 MG TABLET 1 Tablet ORAL DAILY Qty = 30 Sertraline HCl (Zoloft) 100 MG TABLET 1 Tablet ORAL DAILY Copies To: Doris ALAMO,Doris
--- NOTE | 2018-03-04 13:20 | Cons- Cardiology ---
General Information and HPI Consulting Request Date of Consult: 03/04/18 Requested By: Graciela ALAMO,Charla Vergara Reason for Consult: Chest pain, history of coronary disease Source of Information: patient, old records Exam Limitations: poor historian History of Present Illness: Ms. Bolden is a 58-year-old female. Her past medical history is remarkable for hypertension, coronary artery disease, reported prior stents, prior myocardial infarction, sleep apnea, type 2 diabetes, history of prior strokes, and hyperlipidemia. The patient now presents the emergency room and is admitted to telemetry service with complaints of chest discomfort. She saw her primary care physician and due to multiple complaints was sent to the emergency room. The patient has been complaining of some chest discomfort but also notes upper abdominal discomfort which is greater on the right side. She has been seen by the GI service and is pending MRCP to rule out gallstones. In addition, the patient has noticed Increasing weakness, most notable in her lower extremities. In view of her history of prior strokes, in the absence of significant carotid disease, the patient is also undergoing further evaluation from a neurologic standpoint. At this point, her ECG does not show fluctuating ST-T wave abnormalities. Her troponins have been negative. On further discussion with the patient, she notes that her last cardiology appointment was in [place]. She feels that her stents were placed at [facility] in [place]. On further review, the patient was seen by [facility] cardiology several years ago. I discussed the situation with Evens Hood MD who is part of that group and they will reassume the patient's care on Wednesday. Allergies/Medications Allergies: Coded Allergies: lithium (Intermediate, "OUT OF MY MIND" 02/12/17) ibuprofen (Mild, HIVES 02/12/17) adhesive tape (PAPER TAPE CAUSES A RASH - OKAY WITH OTHER TAPES PER PT 05/23/17 ) divalproex sodium (From DEPAKOTE) (HALLUCINATE 11/05/17) tramadol (RASH 11/05/17) Home Med List: Amlodipine Besylate 10 MG TABLET 1 TAB PO DAILY HEART (Reported) . Aspirin (Ecotrin*) 81 MG TABLET.DR 81 MG PO DAILY HEART Atorvastatin Calcium 80 MG TABLET 40 MG PO 1700 STROKE PREVENTION Calcipotriene 0.005 % CREAM..G. 1 BILL TOP DAILY FEET (Reported) Canagliflozin (Invokana) (Unknown Strength) TABLET (Unknown Dose) PO TID DM ( Reported) Clonazepam 1 MG TABLET 1 TAB PO BIDP PRN Anxiety (Reported) Clopidogrel Bisulfate (Plavix) 75 MG TABLET 75 MG PO DAILY STROKE PREVENTION Cyclosporine (Restasis) 0.05 % DROPERETTE 1 GTT OPH BID eyes (Reported) Fluticasone-Salmeterol (Advair 100-50 Diskus) 100 MCG-50 MCG/DOSE BLST.W.DEV 1 PUF INH BID RESP. (Reported) Gabapentin 100 MG CAPSULE 100 MG PO Q8 NEUROPATHY Insulin Detemir (Levemir) 100 UNIT/ML VIAL 46 UNITS SC QPM DM (Reported) Insulin Lispro (Humalog Kwikpen U-100) (Unknown Strength) INSULN.PEN 12 UNITS SC TIDAC DM (Reported) Metformin HCl 500 MG TABLET 1 TAB PO BID DIABETES (Reported) Montelukast Sodium 10 MG TABLET 1 TAB PO DAILY ALLERGIES/RESP (Reported) Nicotine (Nicotine Patch) 21 MG/24 HOUR PATCH.TD24 21 MG TOP DAILY smoking cessation Omeprazole 20 MG CAPSULE.DR 40 MG PO DAILY AC ACID REFLUX Polycarbophil (Fiber) (Unknown Strength) TABLET (Unknown Dose) PO DAILY SUPPLEMENT (Reported) Quetiapine Fumarate (Seroquel) 100 MG TABLET 2 TAB PO DAILY MENTAL HEATLH ( Reported) Quetiapine Fumarate (Seroquel) 200 MG TABLET 2 TAB PO QHS MENTAL HEALTH ( Reported) Sertraline HCl (Zoloft) 100 MG TABLET 1 TAB PO DAILY DEPRESSION (Reported) Trazodone HCl 100 MG TABLET 2 TAB PO QHS MENTAL HEALTH AND SLEEP (Reported) Vit C/E/Zn/Coppr/Lutein/Zeaxan (Preservision Areds 2 Softgel) 250-200-40 CAPSULE 1 CAP PO BID SUPPLEMENT (Reported) Current Medications: Current Medications Sig/Sonia Start time Last Medication Dose Route Stop Time Status Admin Acetaminophen 650 MG Q8P PRN 03/04 0115 AC 03/04 PO 1037 Acetaminophen 1,000 MG ONCE ONE 03/03 2115 DC 03/03 N/A 1 UNIT IV 03/03 Acetaminophen 0 .STK-MED ONE 03/03 2107 DC IV Aspirin 81 MG ONCE ONE 03/04 45 DC 03/04 PO 03/04 0046 0125 Aspirin Buffered 81 MG DAILY 03/04 0900 AC 03/04 PO 0913 Atorvastatin Calcium 40 MG 1700 03/04 1700 AC PO Budesonide/ 2 PUF BID 03/04 09 AC 03/04 Formoterol Fumarate INH 0915 Clonazepam 1 MG .[BIDP] PRN 03/04 0100 AC 03/04 PO 03/11 0059 0125 Clopidogrel Bisulfate 75 MG DAILY 03/04 09 AC 03/04 PO 0913 Gabapentin 100 MG Q8 03/04 0600 AC 03/04 PO 0649 Heparin Sodium 5,000 UNIT Q8 03/04 0600 AC 03/04 (Porcine) SC 0649 Insulin Detemir 15 UNITS BID 03/04 09 AC 03/04 SC 0913 Insulin Human Regular 0 Q6 03/04 0100 AC 03/04 SC 0126 Lorazepam 0.5 MG 0800 03/04 1015 DC 03/04 PO 03/04 1016 1019 Montelukast Sodium 10 MG 2200 03/04 2200 AC PO Morphine Sulfate 2 MG Q4P PRN 03/04 0100 AC 03/04 IV 0650 Morphine Sulfate 2 MG ONCE ONE 03/03 2115 DC 03/03 IV 03/03 2116 2112 Morphine Sulfate 0 .STK-MED ONE 03/038 DC .ROUTE Nicotine 21 MG DAILY 03/04 09 AC 03/04 TOP 0914 Nitroglycerin 0.5 GM Q6 03/04 0600 AC 03/04 TOP 0655 Ondansetron HCl 4 MG ONCE ONE 03/04 0100 DC 03/04 IV 03/04 0101 0126 Pantoprazole Sodium 40 MG DAILY 03/04 09 AC 03/04 IV 0913 Quetiapine Fumarate 200 MG DAILY 03/04 0900 AC 03/04 PO 0913 Quetiapine Fumarate 400 MG QPM 03/04 0130 AC 03/04 PO 0234 Sodium Chloride 1,000 ML .Q20H 03/04 0045 AC IV Trazodone HCl 200 MG AT BEDTIME 03/04 2100 DC PO Trazodone HCl 100 MG AT BEDTIME 03/04 2100 AC PO Past History Travel History Traveled to [place] past 21 day No Medical History Blood Transfusion Hx: No Neurological: CVA HEMORRAGIC EENT: NONE Cardiovascular: hypertension Respiratory: obstructive sleep apnea Gastrointestinal: NONE Hepatic: NONE Renal: NONE Musculoskeletal: NONE Psychiatric: NONE Endocrine: diabetes Blood Disorders: NONE Cancer(s): NONE ACCOUNTS 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 FATHER (History of cancer). Psychosocial History Where Do You Live? Home Who Do You Live With? self Services at Home: None Primary Language: Somali Smoking Status: Light Tobacco Smoker ETOH Use: denies use Functional Ability ADLs Independent: dressing, eating, toileting, bathing. Ambulation: cane IADLs Independent: shopping, housework, finances, food prep, telephone, transportation , medication admin. Exam & Diagnostic Data Vital Signs and I&O Vital Signs Date Time Temp Pulse Resp B/P B/P Pulse O2 O2 Flow FiO2 Mean Ox Delivery Rate 03/04 721 98.6 71 20 126/84 94 Room Air 03/04 0024 98.5 72 20 174/98 96 Room Air 03/03 2224 98.1 74 16 184/83 98 Room Air 03/03 1921 Room Air 03/03 1920 98.2 78 18 141/78 96 Room Air 03/03 1638 98.5 89 18 160/103 98 Room Air Intake & Output 03/04 1600 03/04 0800 / 0000 03/03 1600 03/03 0800 03/03 0000 Intake Total 34 Output Total Balance 34 Intake, IV 34 Patient 241 lb 240 lb Weight Weight Bed scale Reported by Patient Measurement Method Physical Exam: General Appearance: well developed/nourished, mildly overweight, female, alert, awake, oriented Head: normal HEENT: Normal Neck: supple, JVP normal, carotid upstrokes normal bilaterally, no masses or thyromegaly Respiratory: chest non-tender, clear to auscultation and percussion bilaterally Cardiovascular: regular rate/rhythm, normal S1, S2, 1/6 systolic murmur Abdomen: normal bowel sounds, soft, non-tender Extremities: normal inspection, no significant edema Vascular: Pulses are 2+ and equal bilaterally Neurologic: Grossly normal/nonfocal Labs/Gal Results: Laboratory Tests 03/04 03/04 03/04 03/03 1035 0637 0230 2055 Chemistry Sodium (137 - 145 mmol/L) 141 Potassium (3.5 - 5.1 mmol/L) 3.7 Chloride (98 - 107 mmol/L) 100 Carbon Dioxide (22 - 30 mmol/L) 29 Anion Gap (5 - 16) 12 BUN (7 - 17 mg/dL) 13 Creatinine (0.5 - 1.0 mg/dL) 1.0 Estimated GFR (>60 ml/min) 57 L BUN/Creatinine Ratio (7 - 25 %) 13.0 Total Bilirubin (0.2 - 1.3 mg/dL) 0.3 Direct Bilirubin (< 0.4 mg/dL) 0.2 AST (14 - 36 U/L) 61 H ALT (9 - 52 U/L) 80 H Alkaline Phosphatase (<127 U/L) 259 H Troponin I (< 0.11 ng/ml) < 0.01 < 0.01 < 0.01 Total Protein (6.3 - 8.2 g/dL) 7.0 Albumin (3.5 - 5.0 g/dL) 4.0 Coagulation PT (9.4 - 12.5 SEC) 11.2 INR (0.90 - 1.19) 1.03 Hematology CBC w Diff NO MAN DIFF REQ WBC (4.8 - 10.8 /CUMM) 9.7 RBC (4.20 - 5.40 /CUMM) 4.68 Hgb (12.0 - 16.0 G/DL) 11.2 L Hct (37 - 47 %) 35.8 L MCV (81.0 - 99.0 FL) 76.5 L MCH (27.0 - 31.0 PG) 24.0 L MCHC (33.0 - 37.0 G/DL) 31.4 L RDW (11.5 - 14.5 %) 16.4 H Plt Count (130 - 400 /CUMM) 406 H MPV (7.4 - 10.4 FL) 9.4 Gran % (42.2 - 75.2 %) 51.8 Lymphocytes % (20.5 - 51.1 %) 38.8 Monocytes % (1.7 - 9.3 %) 5.7 Eosinophils % (0 - 5 %) 3.2 Basophils % (0.0 - 2.0 %) 0.5 Absolute Granulocytes (1.4 - 6.5 /CUMM) 5.0 Absolute Lymphocytes (1.2 - 3.4 /CUMM) 3.8 H Absolute Monocytes (0.10 - 0.60 /CUMM) 0.6 Absolute Eosinophils (0.0 - 0.7 /CUMM) 0.3 Absolute Basophils (0.0 - 0.2 /CUMM) 0 03/03 03/03 1659 1559 Chemistry Sodium (137 - 145 mmol/L) 142 Potassium (3.5 - 5.1 mmol/L) 3.7 Chloride (98 - 107 mmol/L) 100 Carbon Dioxide (22 - 30 mmol/L) 27 Anion Gap (5 - 16) 15 BUN (7 - 17 mg/dL) 12 Creatinine (0.5 - 1.0 mg/dL) 1.0 Estimated GFR (>60 ml/min) 57 L BUN/Creatinine Ratio (7 - 25 %) 12.0 Glucose (65 - 99 mg/dL) 203 H Calcium (8.4 - 10.2 mg/dL) 10.1 Magnesium (1.6 - 2.3 mg/dL) 1.3 L Total Bilirubin (0.2 - 1.3 mg/dL) 0.3 AST (14 - 36 U/L) 67 H ALT (9 - 52 U/L) 94 H Alkaline Phosphatase (<127 U/L) 282 H Troponin I (< 0.11 ng/ml) < 0.01 Total Protein (6.3 - 8.2 g/dL) 8.0 Albumin (3.5 - 5.0 g/dL) 4.7 Globulin (1.9 - 4.2 gm/dL) 3.3 Albumin/Globulin Ratio (1.1 - 2.2 %) 1.4 TSH &T3 &Free T4 Intrp (0.270 - 4.20 uIU/mL) 2.010 Coagulation D-Dimer High Sensitivty (0 - 243 ng/ml) < 200 Hematology CBC w Diff NO MAN DIFF REQ WBC (4.8 - 10.8 /CUMM) 11.5 H RBC (4.20 - 5.40 /CUMM) 4.85 Hgb (12.0 - 16.0 G/DL) 11.8 L Hct (37 - 47 %) 37.3 MCV (81.0 - 99.0 FL) 76.9 L MCH (27.0 - 31.0 PG) 24.2 L MCHC (33.0 - 37.0 G/DL) 31.5 L RDW (11.5 - 14.5 %) 16.4 H Plt Count (130 - 400 /CUMM) 464 H MPV (7.4 - 10.4 FL) 9.1 Gran % (42.2 - 75.2 %) 65.5 Lymphocytes % (20.5 - 51.1 %) 25.9 Monocytes % (1.7 - 9.3 %) 5.9 Eosinophils % (0 - 5 %) 2.2 Basophils % (0.0 - 2.0 %) 0.5 Absolute Granulocytes (1.4 - 6.5 /CUMM) 7.5 H Absolute Lymphocytes (1.2 - 3.4 /CUMM) 3.0 Absolute Monocytes (0.10 - 0.60 /CUMM) 0.7 H Absolute Eosinophils (0.0 - 0.7 /CUMM) 0.2 Absolute Basophils (0.0 - 0.2 /CUMM) 0.1 Diagnostic Data EKG Results ECG #1-normal sinus rhythm, nonspecific anterolateral ST segment changes ECG #2-more pronounced ST segment depression in leads I, L, and V3 through V6 ECG #3-normal sinus rhythm, similar to ECG #1. CXR Results FINDINGS: EKG leads overlie the chest. Assessment of the lung bases is somewhat limited due to underpenetration. Lungs are clear. No consolidation, pneumothorax, or pleural effusion. Cardiac and mediastinal contours are normal. Pulmonary vasculature is unremarkable. Osseous structures are unremarkable. IMPRESSION: No acute cardiopulmonary findings Assessment/Plan Assessment/Plan Assessment: 1. Chest discomfort; suggestive of unstable angina; history of coronary artery disease and prior stent (review of outside records suggest that the prior stents were placed in 2004). Last outpatient cardiology visit in 2016. 2. Abdominal discomfort, rule out cholangitis, cholecystitis, etc.; abnormal liver function tests 3. History of hypertension 4. History of diabetes 5. History of hyperlipidemia 6. History of thyroid nodule with abnormal thyroid profile 7. Mild microcytic anemia Recommendations: -Maintain patient on telemetry monitoring -Check ECG with any recurrent chest discomfort -If any recurrent chest discomfort recheck troponin -Echocardiogram pending -MRCP pending -Further plans after the above -At some point, the patient will need further noninvasive or invasive testing to assess coronary status. -Depending on neurology input, the patient would also benefit from further cardiac evaluation to rule out cardiac sources of embolic disease in view of her history of prior strokes, reportedly normal carotid artery studies, etc. Consult Acknowledgment - Thank you for your consult request.
--- NOTE | 2018-03-04 13:45 | MRI REPORT ---
EXAMINATION: MR BRAIN WITHOUT AND WITH CONTRAST CLINICAL INFORMATION: Weakness legs. Rule out stroke. COMPARISON: Head CT 03/03/2018. TECHNIQUE: Multiplanar, multisequence imaging of the brain was performed before and after the intravenous administration of 10 mL of Gadavist. FINDINGS: There is no acute infarct, hemorrhage, mass, or extra-axial collection. No abnormal or unexpected intracranial enhancement is seen. There is mild diffuse brain parenchymal volume loss with prominence of the ventricles and sulci. There is redemonstration of chronic infarcts within the bilateral meneses radiata, basal ganglia, thalami, and right cerebellum. Small old cortical infarct in the right frontal lobe is also noted. There are moderate foci of T2 hyperintensity in the bilateral cerebral white matter, which are nonspecific but likely reflect underlying small vessel disease. The flow voids of the major intracranial arteries appear intact. The bones and extracranial soft tissues are within normal limits. IMPRESSION: - No mass lesion, acute infarction, or abnormal intracranial enhancement. - Redemonstration of chronic infarcts in the right frontal lobe, bilateral meneses radiata, basal ganglia, thalami, and right cerebellum. - Moderate small vessel ischemic changes in the cerebral white matter. - Mild diffuse brain parenchymal volume loss.
--- NOTE | 2018-03-04 14:25 | Cons- General Surgery ---
General Information and HPI Consulting Request Date of Consult: 03/04/18 Requested By: Graciela ALAMO,Charla Vergara History of Present Illness: This is a 58-year-old woman who was admitted to the medical service for workup of chest abdominal pain. Patient states she was her primary care physician's office complaining of headache, chest pain and abdominal pain. She was referred to the emergency room for further evaluation. She has a recent history of TIA and past medical history for coronary artery disease status post stents. Workup in the ER was negative for any acute neurologic or cardiovascular insult. There is concern that her symptoms related to biliary disease. Patient states she had a prior episode of similar symptoms about a year and a half ago. Workup at [facility] was revealing for "stone in my liver". She was treated with "medications to break up the stone". Since then she has felt well until her more recent episode of pain. Since admission, there've been interventions to evaluate for the presence of gallstones. There was an ultrasound which showed no gallstones or gallbladder secondary changes of inflammation. There is also an MRCP which failed to show choledocholithiasis or cholelithiasis or biliary inflammatory changes. Currently patient has persistent right upper quadrant abdominal pain. It is improved since admission. She is on a consistent carbohydrate diet without exacerbation. No nausea or vomiting. No fevers chills or sweats. Allergies/Medications Allergies: Coded Allergies: lithium (Intermediate, "OUT OF MY MIND" 02/12/17) ibuprofen (Mild, HIVES 02/12/17) adhesive tape (PAPER TAPE CAUSES A RASH - OKAY WITH OTHER TAPES PER PT 05/23/17 ) divalproex sodium (From DEPAKOTE) (HALLUCINATE 11/05/17) tramadol (RASH 11/05/17) Home Med List: Amlodipine Besylate 10 MG TABLET 1 TAB PO DAILY HEART (Reported) . Aspirin (Ecotrin*) 81 MG TABLET.DR 81 MG PO DAILY HEART Atorvastatin Calcium 80 MG TABLET 40 MG PO 1700 STROKE PREVENTION Calcipotriene 0.005 % CREAM..G. 1 BILL TOP DAILY FEET (Reported) Canagliflozin (Invokana) (Unknown Strength) TABLET (Unknown Dose) PO TID DM ( Reported) Clonazepam 1 MG TABLET 1 TAB PO BIDP PRN Anxiety (Reported) Clopidogrel Bisulfate (Plavix) 75 MG TABLET 75 MG PO DAILY STROKE PREVENTION Cyclosporine (Restasis) 0.05 % DROPERETTE 1 GTT OPH BID eyes (Reported) Fluticasone-Salmeterol (Advair 100-50 Diskus) 100 MCG-50 MCG/DOSE BLST.W.DEV 1 PUF INH BID RESP. (Reported) Gabapentin 100 MG CAPSULE 100 MG PO Q8 NEUROPATHY Insulin Detemir (Levemir) 100 UNIT/ML VIAL 46 UNITS SC QPM DM (Reported) Insulin Lispro (Humalog Kwikpen U-100) (Unknown Strength) INSULN.PEN 12 UNITS SC TIDAC DM (Reported) Metformin HCl 500 MG TABLET 1 TAB PO BID DIABETES (Reported) Montelukast Sodium 10 MG TABLET 1 TAB PO DAILY ALLERGIES/RESP (Reported) Nicotine (Nicotine Patch) 21 MG/24 HOUR PATCH.TD24 21 MG TOP DAILY smoking cessation Omeprazole 20 MG CAPSULE.DR 40 MG PO DAILY AC ACID REFLUX Polycarbophil (Fiber) (Unknown Strength) TABLET (Unknown Dose) PO DAILY SUPPLEMENT (Reported) Quetiapine Fumarate (Seroquel) 100 MG TABLET 2 TAB PO DAILY MENTAL HEATLH ( Reported) Quetiapine Fumarate (Seroquel) 200 MG TABLET 2 TAB PO QHS MENTAL HEALTH ( Reported) Trazodone HCl 100 MG TABLET 2 TAB PO QHS MENTAL HEALTH AND SLEEP (Reported) Vit C/E/Zn/Coppr/Lutein/Zeaxan (Preservision Areds 2 Softgel) 250-200-40 CAPSULE 1 CAP PO BID SUPPLEMENT (Reported) Current Medications: Current Medications Sig/Sonia Start time Last Medication Dose Route Stop Time Status Admin Acetaminophen 650 MG Q8P PRN 03/04 0115 AC 03/04 PO 1037 Acetaminophen 1,000 MG ONCE ONE 03/03 2115 DC 03/03 N/A 1 UNIT IV 03/03 Acetaminophen 0 .STK-MED ONE 03/03 2107 DC IV Aspirin 81 MG .STK-MED ONE 03/04 1417 DC PO 03/04 1418 Aspirin 81 MG ONCE ONE 03/04 0045 DC 03/04 PO 03/04 0046 0125 Aspirin Buffered 81 MG DAILY 03/04 900 AC 03/04 PO 0913 Atorvastatin Calcium 40 MG 1700 03/04 1700 AC PO Budesonide/ 2 PUF BID 03/04 900 AC 07/06 Formoterol Fumarate INH 0915 Clonazepam 1 MG .STK-MED ONE 03/04 1417 DC PO 03/04 1418 Clonazepam 1 MG .[BIDP] PRN 03/04 0100 AC 03/04 PO 03/11 0059 0125 Clopidogrel Bisulfate 75 MG DAILY 03/04 0900 AC 03/04 PO 0913 Gabapentin 100 MG Q8 03/04 0600 AC 03/04 PO 0649 Heparin Sodium 5,000 UNIT Q8 03/04 06 AC 03/04 (Porcine) SC 0649 Insulin Detemir 15 UNITS BID 03/04 09 AC 03/04 SC 0913 Insulin Human Regular 2 UNITS .STK-MED ONE 03/04 1418 DC SC 03/04 1419 Insulin Human Regular 0 Q6 03/04 0100 AC 03/04 SC 0126 Lorazepam 0.5 MG 0800 03/04 1015 DC 03/04 PO 03/04 1016 1019 Montelukast Sodium 10 MG 2200 03/04 2200 AC PO Morphine Sulfate 2 MG Q4P PRN 03/04 0100 AC 03/04 IV 0650 Morphine Sulfate 2 MG ONCE ONE 03/03 2115 DC 03/03 IV 03/03 2116 2112 Morphine Sulfate 0 .STK-MED ONE 03/03 2108 DC .ROUTE Nicotine 21 MG DAILY 03/04 09 AC 03/04 TOP 0914 Nitroglycerin 0.5 GM Q6 03/04 0600 AC 03/04 TOP 0655 Ondansetron HCl 4 MG ONCE ONE 03/04 0100 DC 03/04 IV 03/04 0101 0126 Pantoprazole Sodium 40 MG DAILY 03/04 900 AC 03/04 IV 0913 Quetiapine Fumarate 200 MG DAILY 03/04 0900 AC 03/04 PO 0913 Quetiapine Fumarate 400 MG QPM 03/04 0130 AC 03/04 PO 0234 Sodium Chloride 1,000 ML .Q20H 03/04 0045 AC IV Trazodone HCl 200 MG AT BEDTIME 03/04 2100 DC PO Trazodone HCl 100 MG AT BEDTIME 03/04 2100 AC PO Past History Medical History Blood Transfusion Hx: No Neurological: CVA HEMORRAGIC EENT: NONE Cardiovascular: hypertension Respiratory: obstructive sleep apnea Gastrointestinal: NONE Hepatic: NONE Renal: NONE Musculoskeletal: NONE Psychiatric: NONE Endocrine: diabetes, obesity (morbid) Blood Disorders: NONE Cancer(s): NONE 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 FATHER (History of cancer). Psychosocial History Where Do You Live? Home Who Do You Live With? self Services at Home: None Primary Language: Austrian Smoking Status: Light Tobacco Smoker ETOH Use: denies use Functional Ability ADLs Independent: dressing, eating, toileting, bathing. Ambulation: cane IADLs Independent: shopping, housework, finances, food prep, telephone, transportation , medication admin. Review of Systems Review of Systems: Dyspnea on exertion. No exertional chest pain. Abdominal pain per HPI. Headache. Remainder 12 points negative Exam & Diagnostic Data Vital Signs and I&O Vital Signs Date Time Temp Pulse Resp B/P B/P Pulse O2 O2 Flow FiO2 Mean Ox Delivery Rate 03/04 721 98.6 71 20 126/84 94 Room Air 03/04 0024 98.5 72 20 174/98 96 Room Air 03/03 2224 98.1 74 16 184/83 98 Room Air 03/03 1921 Room Air 03/03 1920 98.2 78 18 141/78 96 Room Air 03/03 1638 98.5 89 18 160/103 98 Room Air Intake & Output 03/04 1600 03/04 0800 / 0000 03/03 1600 03/03 0800 03/03 0000 Intake Total 34 Output Total Balance 34 Intake, IV 34 Patient 241 lb 240 lb Weight Weight Bed scale Reported by Patient Measurement Method Physical Exam: Gen.: She looks her stated age she is morbidly obese in no distress. HEENT: Anicteric PERRL EOMI Chest: Normal excursion normal effort nontender Abdomen: Soft and tender right upper quadrant. Negative Garcia sign. No mass no hernia Extremities: No cyanosis clubbing or edema Last 24 Hours of Labs: Laboratory Tests 03/04 03/04 03/04 03/03 1035 0637 0230 2055 Chemistry Sodium (137 - 145 mmol/L) 141 Potassium (3.5 - 5.1 mmol/L) 3.7 Chloride (98 - 107 mmol/L) 100 Carbon Dioxide (22 - 30 mmol/L) 29 Anion Gap (5 - 16) 12 BUN (7 - 17 mg/dL) 13 Creatinine (0.5 - 1.0 mg/dL) 1.0 Estimated GFR (>60 ml/min) 57 L BUN/Creatinine Ratio (7 - 25 %) 13.0 Total Bilirubin (0.2 - 1.3 mg/dL) 0.3 Direct Bilirubin (< 0.4 mg/dL) 0.2 AST (14 - 36 U/L) 61 H ALT (9 - 52 U/L) 80 H Alkaline Phosphatase (<127 U/L) 259 H Troponin I (< 0.11 ng/ml) < 0.01 < 0.01 < 0.01 Total Protein (6.3 - 8.2 g/dL) 7.0 Albumin (3.5 - 5.0 g/dL) 4.0 Coagulation PT (9.4 - 12.5 SEC) 11.2 INR (0.90 - 1.19) 1.03 Hematology CBC w Diff NO MAN DIFF REQ WBC (4.8 - 10.8 /CUMM) 9.7 RBC (4.20 - 5.40 /CUMM) 4.68 Hgb (12.0 - 16.0 G/DL) 11.2 L Hct (37 - 47 %) 35.8 L MCV (81.0 - 99.0 FL) 76.5 L MCH (27.0 - 31.0 PG) 24.0 L MCHC (33.0 - 37.0 G/DL) 31.4 L RDW (11.5 - 14.5 %) 16.4 H Plt Count (130 - 400 /CUMM) 406 H MPV (7.4 - 10.4 FL) 9.4 Gran % (42.2 - 75.2 %) 51.8 Lymphocytes % (20.5 - 51.1 %) 38.8 Monocytes % (1.7 - 9.3 %) 5.7 Eosinophils % (0 - 5 %) 3.2 Basophils % (0.0 - 2.0 %) 0.5 Absolute Granulocytes (1.4 - 6.5 /CUMM) 5.0 Absolute Lymphocytes (1.2 - 3.4 /CUMM) 3.8 H Absolute Monocytes (0.10 - 0.60 /CUMM) 0.6 Absolute Eosinophils (0.0 - 0.7 /CUMM) 0.3 Absolute Basophils (0.0 - 0.2 /CUMM) 0 03/03 03/03 1659 1559 Chemistry Sodium (137 - 145 mmol/L) 142 Potassium (3.5 - 5.1 mmol/L) 3.7 Chloride (98 - 107 mmol/L) 100 Carbon Dioxide (22 - 30 mmol/L) 27 Anion Gap (5 - 16) 15 BUN (7 - 17 mg/dL) 12 Creatinine (0.5 - 1.0 mg/dL) 1.0 Estimated GFR (>60 ml/min) 57 L BUN/Creatinine Ratio (7 - 25 %) 12.0 Glucose (65 - 99 mg/dL) 203 H Calcium (8.4 - 10.2 mg/dL) 10.1 Magnesium (1.6 - 2.3 mg/dL) 1.3 L Total Bilirubin (0.2 - 1.3 mg/dL) 0.3 AST (14 - 36 U/L) 67 H ALT (9 - 52 U/L) 94 H Alkaline Phosphatase (<127 U/L) 282 H Troponin I (< 0.11 ng/ml) < 0.01 Total Protein (6.3 - 8.2 g/dL) 8.0 Albumin (3.5 - 5.0 g/dL) 4.7 Globulin (1.9 - 4.2 gm/dL) 3.3 Albumin/Globulin Ratio (1.1 - 2.2 %) 1.4 TSH &T3 &Free T4 Intrp (0.270 - 4.20 uIU/mL) 2.010 Coagulation D-Dimer High Sensitivty (0 - 243 ng/ml) < 200 Hematology CBC w Diff NO MAN DIFF REQ WBC (4.8 - 10.8 /CUMM) 11.5 H RBC (4.20 - 5.40 /CUMM) 4.85 Hgb (12.0 - 16.0 G/DL) 11.8 L Hct (37 - 47 %) 37.3 MCV (81.0 - 99.0 FL) 76.9 L MCH (27.0 - 31.0 PG) 24.2 L MCHC (33.0 - 37.0 G/DL) 31.5 L RDW (11.5 - 14.5 %) 16.4 H Plt Count (130 - 400 /CUMM) 464 H MPV (7.4 - 10.4 FL) 9.1 Gran % (42.2 - 75.2 %) 65.5 Lymphocytes % (20.5 - 51.1 %) 25.9 Monocytes % (1.7 - 9.3 %) 5.9 Eosinophils % (0 - 5 %) 2.2 Basophils % (0.0 - 2.0 %) 0.5 Absolute Granulocytes (1.4 - 6.5 /CUMM) 7.5 H Absolute Lymphocytes (1.2 - 3.4 /CUMM) 3.0 Absolute Monocytes (0.10 - 0.60 /CUMM) 0.7 H Absolute Eosinophils (0.0 - 0.7 /CUMM) 0.2 Absolute Basophils (0.0 - 0.2 /CUMM) 0.1 Other Results: Right upper quadrant ultrasound shows no gallstones, no cement side laster ductal dilatation , no gallbladder wall thickening or pericholecystic fluid MRCP shows no gallstones, no choledocholithiasis, no pericholecystic inflammatory changes Assessment/Plan Assessment/Plan 58-year-old woman with morbid obesity who has apparent biliary colic symptoms. By her report, there is history of biliary stone disease of uncertain significance. Recommend obtaining records from [facility] to help elucidate the diagnosis. From current imaging studies, there is no gallstone disease which would warrant surgical intervention regarding her gallbladder. It is still unclear whether or not there is acute cholecystitis as the etiology for pain. She does have mild elevation in her transaminases, which may be in keeping with the disease. If her pain does not resolve, recommend HIDA scan. Prior to surgical intervention, should it become necessary, will need completed evaluation by cardiology to determine her risk for perioperative complications. Problem List: 1. RUQ abdominal pain Consult Acknowledgment - Thank you for your consult request.
--- NOTE | 2018-03-04 14:25 | PN- General Surgery ---
Surgical Brief Attending Note Brief Attending Note: Attempted to see patient. She was unavailable. I will follow up tomorrow. Given complexity of case, will likely recommend outpatient follow up re: gallbladder, after cardiac workup and MRCP.
[2018-03-04 14:45] VITALS: BP 126/82
--- NOTE | 2018-03-04 15:34 | MRI REPORT ---
EXAMINATION: MR ABDOMEN WITHOUT CONTRAST CLINICAL INFORMATION: 58-year-old female with right upper quadrant pain, tenderness and positive Garcia's sign, leukocytosis. Right upper quadrant abdominal ultrasound shows hepatomegaly and sonographically unremarkable gallbladder and common bile duct measuring 1 cm without choledocholithiasis. Follow up MRCP is requested. COMPARISON: Right upper quadrant abdominal ultrasound done on 03/03/2018. TECHNIQUE: Multiplanar, multisequential MR images of the abdomen is obtained without contrast, using MRCP protocol. FINDINGS: LUNG BASES: Unremarkable. LIVER, GALLBLADDER, BILIARY TREE: No discrete focal intrahepatic abnormality is identified on this nonenhanced study. The gallbladder is unremarkable. There is no intrahepatic biliary ductal dilatation present. The common bile duct is visualized at its entire course, measures 0.6 cm proximally and 0.5 cm distally, without evidence of any filling defect, shows progressive smooth distal tapering and normal morphology. PANCREAS: Unremarkable on this nonenhanced study. SPLEEN: Unremarkable on this nonenhanced study. ADRENAL GLANDS AND KIDNEYS: Unremarkable. URETERS AND BLADDER: Visualized part of proximal ureters appear decompressed. The urinary bladder is not included within the [id number] and accordingly not evaluated. BOWEL LOOPS: Decompressed. LYMPHOVASCULAR STRUCTURES: No pathologically enlarged lymphadenopathy is seen. PELVIS: Was not scanned and accordingly not evaluated. BONES: Nonspecific focal T2 hyperintensity is noted at L2 and L3 vertebral bodies, of indeterminate etiology. IMPRESSION: 1. No MR evidence of biliary obstruction. Specifically the common bile duct appears normal in course, caliber and does not show any intraluminal filling defect. 2. Morphologically unremarkable gallbladder. 3. Nonspecific T2 hyperintensity at L2, and L2 vertebral bodies, suboptimally evaluated on this limited study, of indeterminate etiology.
--- NOTE | 2018-03-04 17:54 | Patient Discharge Instructions ---
Discharge Instructions General Discharge Information You were seen/treated for: 1. Unstable angina 2. bILIARY COLIC/Possible choledocholithiasis 3. b/l le weekness Special Instructions: F/U PCP IN ONE WEEK AFTER DISCHARGE. F/U WEB CONTENT WRITER IN ONE WEEK AFTER DISCHARGE. F/U CT SCAN TECH IN ONE WEEK AFTER DISCHARGE. F/U SURGERY IN ONE WEEK AFTER DISCHARGE. DR SIMMS PLANNING FOR OUTPATIENT HIDA SCAN after discharge Diet Continue normal diet: Yes Activity Full Activity/No Limits: Yes Acute Coronary Syndrome Inclusion Criteria At DC or during hospital stay patient has or had the following: ACS DIAGNOSIS No Discharge Core Measures Meds if any: Prescribed or Continued at Discharge Meds if any: NOT Prescribed or Continued at Discharge Congestive Heart Failure Inclusion Criteria At DC or during hospital stay patient has or had the following: CHF DIAGNOSIS No Discharge Core Measures Meds if any: Prescribed or Continued at Discharge Meds if any: NOT Prescribed or Continued at Discharge Cerebrovascular accident Inclusion Criteria At DC or during hospital stay patient has or had the following: CVA/TIA Diagnosis No Discharge Core Measures Meds if any: Prescribed or Continued at Discharge Meds if any: NOT Prescribed or Continued at Discharge Venous thromboembolism Inclusion Criteria VTE Diagnosis No VTE Type NONE VTE Confirmed by (Test) NONE Discharge Core Measures - Per Current guidelines, there needs to be overlap - treatment for the first 5 days of Warfarin therapy. - If discharged on Warfarin prior to 5 days of - overlap therapy, the patient will need to be - assessed for post discharge needs including - *Post discharge parental anticoagulation - *Warfarin and/or parental anticoagulation education - *Follow up date to check INR post discharge At least 5 days overlap therapy as Inpatient No Meds if any: Prescribed or Continued at Discharge Note: Overlap Therapy is Warfarin and Anticoagulant Meds if any: NOT Prescribed or Continued at Discharge
[2018-03-04 22:30] VITALS: BP 150/96
[2018-03-05 06:00] VITALS: BP 122/86
[2018-03-05 08:24] LABS: ABSOLUTE BASOPHIL COUNT 0.1 /CUMM (0.0-0.2); ABSOLUTE EOSINOPHIL COUNT 0.4 /CUMM (0.0-0.7); ABSOLUTE GRANULOCYTE CT 5.3 /CUMM (1.4-6.5); ABSOLUTE LYMPH COUNT 3.9 /CUMM (1.2-3.4); ABSOLUTE MONOCYTE COUNT 0.6 /CUMM (0.10-0.60); BASOPHIL % 0.6 % (0.0-2.0); EOSINOPHIL % 3.5 % (0-5); GRANULOCYTE % 52.1 % (42.2-75.2); HEMATOCRIT 35.5 % (37-47); MEAN CORPUSCULAR VOLUME 77.5 FL (81.0-99.0); MEAN PLATELET VOLUME 9.2 FL (7.4-10.4); PLATELET COUNT 445 /CUMM (130-400); RBC DISTRIBUTION WIDTH 16.5 % (11.5-14.5); RED BLOOD CELL CT 4.58 /CUMM (4.20-5.40); WHITE BLOOD CELL COUNT 10.3 /CUMM (4.8-10.8)
--- NOTE | 2018-03-05 08:34 | PN- Housestaff ---
Richard Page 03/05/18 0834: Subjective Follow-up For: unstable angina, biliary colic, diabetes mellitus type 2 Subjective: Patient seen resting in the bed. She is complaining of right upper quadrant pain, and migraine-like headache with photosensitivity. Denies diarrhea, vomiting, but does report some nausea. Patient denies palpitations, dizziness, dyspnea, fever. Patient was brought in for chest pain, but not currently experiencing chest pain. She has been experiencing the right upper quadrant pain for approximately 3 weeks, but the chest pain has only been there for about 1 week. Review of Systems Constitutional: Denies: chills, fever. Cardiovascular: Denies: palpitations, peripheral edema, syncope. Respiratory: Denies: short of breath, wheezing. Gastrointestinal: Reports: abdominal pain. Denies: vomiting. Objective Last 24 Hrs of Vital Signs/I&O Vital Signs Date Time Temp Pulse Resp B/P B/P Pulse O2 O2 Flow FiO2 Mean Ox Delivery Rate 03/05 600 98.0 64 20 122/86 94 03/04 2230 98.2 84 22 150/96 95 03/04 1445 97.8 77 18 126/82 91 Room Air Intake & Output 03/05 1600 03/05 0800 03/05 0000 Intake Total 120 120 Output Total Balance 120 120 Intake, Oral 120 120 Patient 110.308 kg Weight Physical Exam General Appearance: Alert, Oriented X3, Cooperative, No Acute Distress Cardiovascular: Normal S1, Normal S2, No Murmurs Lungs: Clear to Auscultation Abdomen: Normal Bowel Sounds, Soft, tender to palpation in the ruq Current Medications: Current Medications Sig/Sonia Start time Last Medication Dose Route Stop Time Status Admin Acetaminophen 650 MG Q8P PRN 03/04 0115 AC 03/04 PO 1037 Amlodipine Besylate 10 MG DAILY 03/05 900 AC PO Aspirin 81 MG .STK-MED ONE 03/04 1417 DC PO 03/04 1418 Aspirin Buffered 81 MG DAILY 03/04 900 AC 03/04 PO 0913 Atorvastatin Calcium 40 MG 1700 03/04 1700 AC 03/04 PO 1537 Budesonide/ 2 PUF BID 03/04 900 AC 03/04 Formoterol Fumarate INH 2138 Clonazepam 0.5 MG ONCE ONE 03/040 DC 03/04 PO 03/04 2201 2217 Clonazepam 1 MG .STK-MED ONE 03/04 1417 DC PO 03/04 1418 Clonazepam 1 MG .[BIDP] PRN 03/04 0100 AC 03/04 PO 03/11 0059 1554 Clopidogrel Bisulfate 75 MG DAILY 03/04 0900 AC 03/04 PO 0913 Dextrose/Sodium 1,000 ML Q13H 03/04 1545 CAN Chloride IV 03/05 0444 Gabapentin 100 MG Q8 03/04 0600 AC 03/05 PO 0544 Heparin Sodium 5,000 UNIT Q8 03/04 0600 AC 03/05 (Porcine) SC 0544 Insulin Aspart 0 TIDAC 03/04 1700 AC UT Insulin Detemir 15 UNITS BID 03/04 09 AC 03/04 SC 2142 Insulin Human Regular 2 UNITS .STK-MED ONE 03/04 1418 DC SC 03/04 1419 Insulin Human Regular 0 Q6 03/04 0100 DC 03/04 SC 0126 Lorazepam 0.5 MG 0800 03/04 1015 DC 03/04 PO 03/04 1016 1019 Montelukast Sodium 10 MG 2200 03/04 2200 AC 03/04 PO 2137 Morphine Sulfate 2 MG Q4P PRN 03/04 0100 AC 03/04 IV 2150 Nicotine 21 MG DAILY 03/04 0900 AC 03/04 TOP 0914 Nitroglycerin 0.5 GM Q6 03/04 0600 AC 03/05 TOP 0544 Pantoprazole Sodium 40 MG DAILY 03/04 0900 AC 03/04 IV 0913 Quetiapine Fumarate 200 MG DAILY 03/04 0900 AC 03/04 PO 0913 Quetiapine Fumarate 400 MG QPM 03/04 0130 AC 03/04 PO 2137 Sodium Chloride 1,000 ML .Q20H 03/04 0045 DC IV Trazodone HCl 100 MG AT BEDTIME 03/04 2100 AC 03/04 PO 2138 Last 24 Hrs of Lab/Gal Results Last 24 Hrs of Labs/Mics: Laboratory Tests 03/05/18 0710: Sodium Pending, Potassium Pending, Chloride Pending, Carbon Dioxide Pending, Anion Gap Pending, BUN Pending, Creatinine Pending, BUN/Creatinine Ratio Pending , Total Bilirubin Pending, Direct Bilirubin Pending, AST Pending, ALT Pending, Alkaline Phosphatase Pending, Total Protein Pending, Albumin Pending, PT 11.0, INR 1.01, CBC w Diff Pending, WBC Pending, RBC Pending, Hgb Pending, Hct Pending , MCV Pending, MCH Pending, MCHC Pending, RDW Pending, Plt Count Pending, MPV Pending 03/04/18 1035: Troponin I < 0.01 Assessment/Plan Assessment: 58 year old woman w/a PMHx of 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 2011), CVA x 3 episodes( last admission to 11/14) was sent to the ER by her PCP w/ a chief concern of "elevated heart rate", and evaluation of chest pain. 1. Chest pain/unstable angina left arm 2. Hypertension 3. Biliary colic 4. Headache enhancement however did show chronic infarcts in the right frontal lobe among others, as well as small vessel ischemic changes in the cerebral white matter 5. Anxiety/mental health Problem List: 1. Chest pain 2. Unstable angina 3. Headache 4. Biliary colic Pain Ratin Pain Location: migraine, ruq Pain Goal: Pain 4 or less Pain Plan: tylenol Marlen ALAMO,Destiny 03/05/18 0938: Attending MD Review Statement Attending Statement Attending MD Statement: examined this patient, discuss w/resident/PA/SHANK TAPPER, agreed w/resident/PA/SHANK TAPPER, reviewed EMR data (avail), discussed with nursing, discussed with case mgmt, amended to note Attending Assessment/Plan: Patient seen and examined. No events overnight. No events on telemetry monitoring. She remains in normal sinus rhythm. Lying in bed does not appear to be in acute distress however she continues to complain of right upper quadrant abdominal pain. Reports some nausea and one episode of vomiting yesterday. Denies diarrhea. She is afebrile hemodynamically stable. MRCP done yesterday showed no evidence of choledocholithiasis. The cause of her abdominal discomfort and transaminitis remains unclear at present. MRI of the brain done yesterday shows no mass lesion or acute infarct. She does have redemonstration of chronic infarcts. She has moderate small vessel ischemic changes. On examination she does not appear to be in acute distress. Lungs are clear bilaterally. Heart sounds are regular. Abdomen is nondistended, obese, soft with tenderness right upper quadrant. No rebound or guarding. No peripheral edema. Recommendations: -Follow-up with the gastroenterology and general surgery service regarding patient's ongoing pain. -Follow with cardiology service regarding timing and modality of further cardiac testing as recommended during the week.
--- NOTE | 2018-03-05 11:51 | PN- Cardiology ---
Subjective Subjective: * Patient complains of an intermittent mid to right sided chest discomfort that is a bit different from her prior cardiac discomfort. She also has shortness of breath with lying flat. * Normal troponin. * sinus rhythm * Mildly elevated hepatic transaminases Objective Vital Signs and I&Os Vital Signs Date Time Temp Pulse Resp B/P B/P Pulse O2 O2 Flow FiO2 Mean Ox Delivery Rate 03/05 0841 128/70 03/05 06 98.0 64 20 122/86 94 03/04 2230 98.2 84 22 150/96 95 03/04 1445 97.8 77 18 126/82 91 Room Air Intake & Output 03/05 1600 03/05 0803/05 0000 03/04 1600 03/04 0803/04 0000 Intake Total 120 120 100 34 Output Total Balance 120 120 100 34 Intake, IV 34 Intake, Oral 120 120 100 Patient 243 lb 241 lb 240 lb Weight Weight Bed scale Reported by Patient Measurement Method Physical Exam: General: WD/obese female in NAD; alert and oriented x 3 HEENT: NC/AT, PERRL, EOMI Neck: no JVD Heart: RRR Lungs: clear bilaterally Abdomen: soft, obese, NT, +ve bowel sounds Extremities: no edema Assessment/Plan Assessment/Plan * This patient has chest discomfort along with some non-specific ST change on her ECG. She has ruled out for an IL by cardiac enzymes but may well have unstable angina. Continue her current cardiac medications and plan on risk stratification with a pharmacologic stress test on Wednesday. Continue telemetry? Yes
--- NOTE | 2018-03-05 12:34 | PN- Gastroenterology ---
Assessment/Plan GI Assessment/Recommendations: Assessment: Ms. Bolden is a 58 year old female admitted with RUQ pain and increased LFTs of uncertain etiology. While she continues to complain of RUQ pain her LFTs are improving and her MRCP yesterday was negative for choledocolithiasis. It is possible that she may have passed a gallstone albeit no stones were reported on her MRCP either. Considering she has RUQ tenderness on PE it stands to reason that she may have cholecsystitis, but this also wasn't appreciated on yesterdays MRI or the US the day before and I will defer to surgery as to whether or not they feel a HIDA scan is appropriate. As her LFTs are improving and there are no CBD fillling defects on her MRI and her bilirubin was never elevated I don't feel an ERCP is necessary at this time. Recommendations: 1. Diet as tolerated 2. Follow daily LFTs 3. Follow up surgery recommendations (t/c HIDA scan) 4. Analgesia as needed 5. Continue to observe off of antibiotics and GI should be notified should she develop signs of cholangitis 6. If possible get records from last years reported hospitalization at [facility] where she reports she had gallstones and also may have had an ERCP 7. Follow up cardiology recommendations. I will continue to follow this patient and make further recommendations based on her clinical course and results of repeat blood work and imaging if it is obtained. Problem List: 1. Biliary colic 2. Chest pain Subjective Subjective: still complaining of RUQ pain, but she is able to tolerate a diet and she doesn' t necessarily feel eating exacerbaters her discomfort. no nausea or vomiting. Objective Vital Signs and I&Os Vital Signs Date Time Temp Pulse Resp B/P B/P Pulse O2 O2 Flow FiO2 Mean Ox Delivery Rate 03/05 0841 128/70 03/05 0600 98.0 64 20 122/86 94 03/04 2230 98.2 84 22 150/96 95 03/04 1445 97.8 77 18 126/82 91 Room Air Intake & Output 03/05 1600 03/05 0400 03/04 1600 03/04 0400 03/03 1600 03/03 0400 Intake Total 120 120 134 Output Total Balance 120 120 134 Intake, IV 34 Intake, Oral 120 120 100 Patient 243 lb 241 lb Weight Weight Bed scale Measurement Method Physical Exam General Appearance: well developed/nourished, no apparent distress, alert, comfortable Head: atraumatic, normal appearance Ears, Nose, Throat: normal pharynx Respiratory: chest non-tender, no respiratory distress Cardiovascular: regular rate/rhythm Abdomen: normal bowel sounds, soft, tenderness Back: normal inspection Extremities: no edema Neurologic/Psychiatric: awake, alert, oriented x 3 Current Medications: Current Medications Sig/Sonia Start time Last Medication Dose Route Stop Time Status Admin Acetaminophen 650 MG Q8P PRN 03/04 0115 AC 03/04 PO 1037 Amlodipine Besylate 10 MG DAILY 03/05 900 AC 03/05 PO 0841 Aspirin 81 MG .STK-MED ONE 03/04 1417 DC PO 03/04 1418 Aspirin Buffered 81 MG DAILY 03/04 900 AC 03/05 PO 0839 Atorvastatin Calcium 40 MG 1700 03/04 1700 AC 03/04 PO 1537 Budesonide/ 2 PUF BID 03/04 900 AC 03/05 Formoterol Fumarate INH 0839 Clonazepam 0.5 MG ONCE ONE 03/04 2200 DC 03/04 PO 03/04 2201 2217 Clonazepam 1 MG .STK-MED ONE 03/04 1417 DC PO 03/04 1418 Clonazepam 1 MG .[BIDP] PRN 03/04 0100 AC 03/04 PO 03/11 0059 1554 Clopidogrel Bisulfate 75 MG DAILY 03/04 900 AC 03/05 PO 0839 Dextrose/Sodium 1,000 ML Q13H 03/04 1545 CAN Chloride IV 03/05 0444 Gabapentin 100 MG Q8 03/04 06 AC 03/05 PO 0544 Heparin Sodium 5,000 UNIT Q8 03/04 06 AC 03/05 (Porcine) SC 0544 Insulin Aspart 0 TIDAC 03/04 1700 AC 03/05 SC 1203 Insulin Detemir 15 UNITS BID 03/04 900 AC 03/05 SC 0847 Insulin Human Regular 2 UNITS .STK-MED ONE 03/04 1418 DC SC 03/04 1419 Insulin Human Regular 0 Q6 03/04 0100 TN 03/04 SC 0126 Montelukast Sodium 10 MG 2200 03/04 2200 AC 03/04 PO 2137 Morphine Sulfate 2 MG Q4P PRN 03/04 0100 AC 03/05 IV 0940 Nicotine 21 MG DAILY 03/04 900 AC 03/05 TOP 0839 Nitroglycerin 0.5 GM Q6 03/04 0600 AC 03/05 TOP 1203 Pantoprazole Sodium 40 MG DAILY 03/04 09 AC 03/05 IV 0841 Quetiapine Fumarate 200 MG DAILY 03/04 09 AC 03/05 PO 0839 Quetiapine Fumarate 400 MG QPM 03/04 0130 AC 03/04 PO 2137 Sodium Chloride 1,000 ML .Q20H 03/04 0045 DC IV Trazodone HCl 100 MG AT BEDTIME 03/04 2100 AC 03/04 PO 2138 Results Pertinent Lab Results: Laboratory Tests 03/05 03/04 07 1035 Chemistry Sodium (137 - 145 mmol/L) 140 Potassium (3.5 - 5.1 mmol/L) 3.7 Chloride (98 - 107 mmol/L) 97 L Carbon Dioxide (22 - 30 mmol/L) 29 Anion Gap (5 - 16) 13 BUN (7 - 17 mg/dL) 15 Creatinine (0.5 - 1.0 mg/dL) 1.1 H Estimated GFR (>60 ml/min) 51 L BUN/Creatinine Ratio (7 - 25 %) 13.6 Total Bilirubin (0.2 - 1.3 mg/dL) 0.3 Direct Bilirubin (< 0.4 mg/dL) 0.3 AST (14 - 36 U/L) 52 H ALT (9 - 52 U/L) 70 H Alkaline Phosphatase (<127 U/L) 260 H Troponin I (< 0.11 ng/ml) < 0.01 Total Protein (6.3 - 8.2 g/dL) 7.2 Albumin (3.5 - 5.0 g/dL) 4.0 Coagulation PT (9.4 - 12.5 SEC) 11.0 INR (0.90 - 1.19) 1.01 Hematology CBC w Diff NO MAN DIFF REQ WBC (4.8 - 10.8 /CUMM) 10.3 RBC (4.20 - 5.40 /CUMM) 4.58 Hgb (12.0 - 16.0 G/DL) 11.0 L Hct (37 - 47 %) 35.5 L MCV (81.0 - 99.0 FL) 77.5 L MCH (27.0 - 31.0 PG) 24.0 L MCHC (33.0 - 37.0 G/DL) 31.0 L RDW (11.5 - 14.5 %) 16.5 H Plt Count (130 - 400 /CUMM) 445 H MPV (7.4 - 10.4 FL) 9.2 Gran % (42.2 - 75.2 %) 52.1 Lymphocytes % (20.5 - 51.1 %) 37.9 Monocytes % (1.7 - 9.3 %) 5.9 Eosinophils % (0 - 5 %) 3.5 Basophils % (0.0 - 2.0 %) 0.6 Absolute Granulocytes (1.4 - 6.5 /CUMM) 5.3 Absolute Lymphocytes (1.2 - 3.4 /CUMM) 3.9 H Absolute Monocytes (0.10 - 0.60 /CUMM) 0.6 Absolute Eosinophils (0.0 - 0.7 /CUMM) 0.4 Absolute Basophils (0.0 - 0.2 /CUMM) 0.1 03/04 03/04 07 0637 0230 2055 Chemistry Sodium (137 - 145 mmol/L) 141 Potassium (3.5 - 5.1 mmol/L) 3.7 Chloride (98 - 107 mmol/L) 100 Carbon Dioxide (22 - 30 mmol/L) 29 Anion Gap (5 - 16) 12 BUN (7 - 17 mg/dL) 13 Creatinine (0.5 - 1.0 mg/dL) 1.0 Estimated GFR (>60 ml/min) 57 L BUN/Creatinine Ratio (7 - 25 %) 13.0 Total Bilirubin (0.2 - 1.3 mg/dL) 0.3 Direct Bilirubin (< 0.4 mg/dL) 0.2 AST (14 - 36 U/L) 61 H ALT (9 - 52 U/L) 80 H Alkaline Phosphatase (<127 U/L) 259 H Troponin I (< 0.11 ng/ml) < 0.01 < 0.01 Total Protein (6.3 - 8.2 g/dL) 7.0 Albumin (3.5 - 5.0 g/dL) 4.0 Coagulation PT (9.4 - 12.5 SEC) 11.2 INR (0.90 - 1.19) 1.03 Hematology CBC w Diff NO MAN DIFF REQ WBC (4.8 - 10.8 /CUMM) 9.7 RBC (4.20 - 5.40 /CUMM) 4.68 Hgb (12.0 - 16.0 G/DL) 11.2 L Hct (37 - 47 %) 35.8 L MCV (81.0 - 99.0 FL) 76.5 L MCH (27.0 - 31.0 PG) 24.0 L MCHC (33.0 - 37.0 G/DL) 31.4 L RDW (11.5 - 14.5 %) 16.4 H Plt Count (130 - 400 /CUMM) 406 H MPV (7.4 - 10.4 FL) 9.4 Gran % (42.2 - 75.2 %) 51.8 Lymphocytes % (20.5 - 51.1 %) 38.8 Monocytes % (1.7 - 9.3 %) 5.7 Eosinophils % (0 - 5 %) 3.2 Basophils % (0.0 - 2.0 %) 0.5 Absolute Granulocytes (1.4 - 6.5 /CUMM) 5.0 Absolute Lymphocytes (1.2 - 3.4 /CUMM) 3.8 H Absolute Monocytes (0.10 - 0.60 /CUMM) 0.6 Absolute Eosinophils (0.0 - 0.7 /CUMM) 0.3 Absolute Basophils (0.0 - 0.2 /CUMM) 0 03/03 03/03 1659 1559 Chemistry Sodium (137 - 145 mmol/L) 142 Potassium (3.5 - 5.1 mmol/L) 3.7 Chloride (98 - 107 mmol/L) 100 Carbon Dioxide (22 - 30 mmol/L) 27 Anion Gap (5 - 16) 15 BUN (7 - 17 mg/dL) 12 Creatinine (0.5 - 1.0 mg/dL) 1.0 Estimated GFR (>60 ml/min) 57 L BUN/Creatinine Ratio (7 - 25 %) 12.0 Glucose (65 - 99 mg/dL) 203 H Calcium (8.4 - 10.2 mg/dL) 10.1 Magnesium (1.6 - 2.3 mg/dL) 1.3 L Total Bilirubin (0.2 - 1.3 mg/dL) 0.3 AST (14 - 36 U/L) 67 H ALT (9 - 52 U/L) 94 H Alkaline Phosphatase (<127 U/L) 282 H Troponin I (< 0.11 ng/ml) < 0.01 Total Protein (6.3 - 8.2 g/dL) 8.0 Albumin (3.5 - 5.0 g/dL) 4.7 Globulin (1.9 - 4.2 gm/dL) 3.3 Albumin/Globulin Ratio (1.1 - 2.2 %) 1.4 TSH &T3 &Free T4 Intrp (0.270 - 4.20 uIU/mL) 2.010 Coagulation D-Dimer High Sensitivty (0 - 243 ng/ml) < 200 Hematology CBC w Diff NO MAN DIFF REQ WBC (4.8 - 10.8 /CUMM) 11.5 H RBC (4.20 - 5.40 /CUMM) 4.85 Hgb (12.0 - 16.0 G/DL) 11.8 L Hct (37 - 47 %) 37.3 MCV (81.0 - 99.0 FL) 76.9 L MCH (27.0 - 31.0 PG) 24.2 L MCHC (33.0 - 37.0 G/DL) 31.5 L RDW (11.5 - 14.5 %) 16.4 H Plt Count (130 - 400 /CUMM) 464 H MPV (7.4 - 10.4 FL) 9.1 Gran % (42.2 - 75.2 %) 65.5 Lymphocytes % (20.5 - 51.1 %) 25.9 Monocytes % (1.7 - 9.3 %) 5.9 Eosinophils % (0 - 5 %) 2.2 Basophils % (0.0 - 2.0 %) 0.5 Absolute Granulocytes (1.4 - 6.5 /CUMM) 7.5 H Absolute Lymphocytes (1.2 - 3.4 /CUMM) 3.0 Absolute Monocytes (0.10 - 0.60 /CUMM) 0.7 H Absolute Eosinophils (0.0 - 0.7 /CUMM) 0.2 Absolute Basophils (0.0 - 0.2 /CUMM) 0.1 Imaging/Other Studies: SERVICE DATE: 03/04/18- EXAM TYPE: MRI - MRI-ABDOMEN EXAMINATION: MR ABDOMEN WITHOUT CONTRAST CLINICAL INFORMATION: 58-year-old female with right upper quadrant pain, tenderness and positive Garcia's sign, leukocytosis. Right upper quadrant abdominal ultrasound shows hepatomegaly and sonographically unremarkable gallbladder and common bile duct measuring 1 cm without choledocholithiasis. Follow up MRCP is requested. COMPARISON: Right upper quadrant abdominal ultrasound done on 03/03/2018. TECHNIQUE: Multiplanar, multisequential MR images of the abdomen is obtained without contrast, using MRCP protocol. FINDINGS: LUNG BASES: Unremarkable. LIVER, GALLBLADDER, BILIARY TREE: No discrete focal intrahepatic abnormality is identified on this nonenhanced study. The gallbladder is unremarkable. There is no intrahepatic biliary ductal dilatation present. The common bile duct is visualized at its entire course, measures 0.6 cm proximally and 0.5 cm distally, without evidence of any filling defect, shows progressive smooth distal tapering and normal morphology. PANCREAS: Unremarkable on this nonenhanced study. SPLEEN: Unremarkable on this nonenhanced study. ADRENAL GLANDS AND KIDNEYS: Unremarkable. URETERS AND BLADDER: Visualized part of proximal ureters appear decompressed. The urinary bladder is not included within the [id number] and accordingly not evaluated. BOWEL LOOPS: Decompressed. LYMPHOVASCULAR STRUCTURES: No pathologically enlarged lymphadenopathy is seen. PELVIS: Was not scanned and accordingly not evaluated. BONES: Nonspecific focal T2 hyperintensity is noted at L2 and L3 vertebral bodies, of indeterminate etiology. IMPRESSION: 1. No MR evidence of biliary obstruction. Specifically the common bile duct appears normal in course, caliber and does not show any intraluminal filling defect. 2. Morphologically unremarkable gallbladder. 3. Nonspecific T2 hyperintensity at L2, and L2 vertebral bodies, suboptimally evaluated on this limited study, of indeterminate etiology.
[2018-03-05 13:29] VITALS: BP 140/90
--- NOTE | 2018-03-05 15:10 | PN- General Surgery ---
Surgical Brief Attending Note Brief Attending Note: see yesterday consultation for full assessment and plan.
[2018-03-05 22:03] VITALS: BP 130/94
[2018-03-06 06:38] VITALS: BP 146/96
[2018-03-06 08:06] LABS: ABSOLUTE BASOPHIL COUNT 0.1 /CUMM (0.0-0.2); ABSOLUTE EOSINOPHIL COUNT 0.4 /CUMM (0.0-0.7); ABSOLUTE GRANULOCYTE CT 7.1 /CUMM (1.4-6.5); ABSOLUTE LYMPH COUNT 3.1 /CUMM (1.2-3.4); ABSOLUTE MONOCYTE COUNT 0.7 /CUMM (0.10-0.60); BASOPHIL % 0.5 % (0.0-2.0); EOSINOPHIL % 3.4 % (0-5); GRANULOCYTE % 62.5 % (42.2-75.2); HEMATOCRIT 34.5 % (37-47); MEAN CORPUSCULAR HGB 24.2 PG (27.0-31.0); MEAN CORPUSCULAR HGB CONC 31.5 G/DL (33.0-37.0); MEAN CORPUSCULAR VOLUME 76.9 FL (81.0-99.0); MEAN PLATELET VOLUME 9.5 FL (7.4-10.4); PLATELET COUNT 387 /CUMM (130-400); RBC DISTRIBUTION WIDTH 16.3 % (11.5-14.5); RED BLOOD CELL CT 4.49 /CUMM (4.20-5.40); WHITE BLOOD CELL COUNT 11.4 /CUMM (4.8-10.8)
--- NOTE | 2018-03-06 08:38 | PN- Housestaff ---
Shayne Jaime 03/06/18 0838: Subjective Follow-up For: 1. Unstable angina 2. bILIARY COLIC/Possible choledocholithiasis Complaints: pain scale (0-10) Tele-Events Since Last Visit: Normal sinus rhythm with no acute events Subjective: Patient was seen and examined this morning. She is alert awake and oriented to time place and person. Patient has NO abdominal pain this morning. Denies any nausea and vomiting this morning. Denies any more episodes of diarrhea. No melena, hematochezia, hematemesis. Patient denied any chest pain, palpitations, short of breath this morning. Reports lower extremity bilateral weakness. No focal neurologic deficits. Denied any speech changes, gait changes. Reports headache this morning, received Fioricet. Vitals stable afebrile, heart rate 89, respiratory rate 18, blood pressure 140/ 80, saturating at 98 on room air. Review of Systems Constitutional: Reports: see HPI. Objective Last 24 Hrs of Vital Signs/I&O Vital Signs Date Time Temp Pulse Resp B/P B/P Pulse O2 O2 Flow FiO2 Mean Ox Delivery Rate 03/06 0903 140/68 03/06 0638 97.6 71 18 146/96 99 Room Air 03/05 2203 97.5 85 18 130/94 95 /07 1329 99.0 98 17 140/90 94 Room Air Intake & Output 03/06 1600 03/06 0800 03/06 0000 Intake Total 50 400 Output Total Balance 50 400 Intake, Oral 50 400 Patient 111.3 kg Weight Physical Exam General Appearance: Alert, Oriented X3, Cooperative, No Acute Distress Other Physical Findings: Skin: No rashes, no breakdown; HEENT: PERRLA, EOMI; Neck: Supple, No JVD; No cervical lymphadenopathy; CVS: Reg Rate, Normal S1,S2, No MGR; Resp: Normal air entry, no ronchi/rales; Abdomen: Soft, RUQ tenderness, murphys positive, Normal Bowel Sounds. Neuro: Normal Speech, Strength 5/5 b/l x 4 extremities, Sensation intact L<R, CN III-XII NL, Reflexes 2+, cerebellar tests negative, Extremities: No cyanosis, no pedal edema. Current Medications: Current Medications Sig/Sonia Start time Last Medication Dose Route Stop Time Status Admin Acetaminophen 650 MG Q8P PRN 03/04 0115 AC 03/04 PO 1037 Acetaminophen/ 1 TAB Q6-PRN PRN 03/06 09 AC 03/06 Butalbital/Caffeine PO 0959 Amlodipine Besylate 10 MG DAILY 03/05 09 AC 03/06 PO 0903 Aspirin Buffered 81 MG DAILY 03/04 09 AC 03/06 PO 0903 Atorvastatin Calcium 40 MG 1700 03/05 1700 AC 03/05 PO 1552 Budesonide/ 2 PUF BID 03/04 09 AC 03/06 Formoterol Fumarate INH 0905 Clonazepam 1 MG .[BIDP] PRN 03/04 0100 AC 03/06 PO 03/11 0059 1000 Clopidogrel Bisulfate 75 MG DAILY 03/04 09 AC 03/06 PO 0902 Gabapentin 100 MG Q8 03/04 06 AC 03/06 PO 0538 Heparin Sodium 5,000 UNIT Q8 03/04 600 AC 03/06 (Porcine) SC 0538 Insulin Aspart 0 TIDAC 03/04 1700 AC 03/06 SC 0903 Insulin Detemir 15 UNITS BID 03/04 09 AC 03/06 SC 0904 Montelukast Sodium 10 MG 2200 03/04 2200 AC 03/05 PO 2221 Morphine Sulfate 2 MG Q4P PRN 03/04 0100 AC 03/06 IV 1101 Nicotine 21 MG DAILY 03/04 09 AC 03/06 TOP 0905 Nitroglycerin 0.5 GM Q6 03/04 06 AC 03/06 TOP 0538 Pantoprazole Sodium 40 MG DAILY 03/04 09 AC 03/06 IV 0905 Quetiapine Fumarate 200 MG DAILY 03/04 09 AC 03/06 PO 09 Quetiapine Fumarate 400 MG QPM 03/04 0130 AC 03/05 PO 2009 Trazodone HCl 100 MG AT BEDTIME 03/04 2100 AC 03/05 PO 2009 Last 24 Hrs of Lab/Gal Results Last 24 Hrs of Labs/Mics: Laboratory Tests 03/06/18 0645: Anion Gap 14, Estimated GFR > 60, BUN/Creatinine Ratio 16.7, Total Bilirubin 0.2 , Direct Bilirubin 0.2, AST 48 H, ALT 71 H, Alkaline Phosphatase 251 H, Total Protein 6.9, Albumin 4.0, CBC w Diff NO MAN DIFF REQ, RBC 4.49, MCV 76.9 L, MCH 24.2 L, MCHC 31.5 L, RDW 16.3 H, MPV 9.5, Gran % 62.5, Lymphocytes % 27.1, Monocytes % 6.5, Eosinophils % 3.4, Basophils % 0.5, Absolute Granulocytes 7.1 H, Absolute Lymphocytes 3.1, Absolute Monocytes 0.7 H, Absolute Eosinophils 0.4 , Absolute Basophils 0.1 Assessment/Plan Assessment: Ms Bolden is a 58 year old woman w/a PMHx of 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 2011), CVA x 3 episodes( last admission to 11/14) was sent to the ER by her PCP w/ a chief concern of "elevated heart rate", and evaluation of chest pain. Vitals-temperature 98.5, pulse rate 89, respiration 18, blood pressure 160/103-- 141/78, 98% on room air. Pertinent Lab findings: WBC 11.5 ( granulocytes 65%), platelet count 464 Hemoglobin 11.8, MCV 76.9, hematocrit 37.3 (microcytic) Sodium 142, potassium 3.7, magnesium 1.3, bicarbonate 27, anion gap 15, Renal function-BUN 12, creatinine 1.0. Glucose 203, hemoglobin A1c 8.4 (02/11/2018). Liver chemistries-AST 67, AST 94, alkaline phosphatase 282 (baseline 67 u/l on 10/2017), Tbili 0.3 Albumin 4.7, INR pending Troponin I-0.01, 0.01 D-dimer less than 200. TSH 2.01 EKG revealed normal sinus rhythm, no acute ST-T wave changes. Ct head: no acute intracranial hemorrhage or territorial infarction. Chronic infarcts in the deep soriano matter structures and right cerebellar hemisphere, as noted on prior imaging with moderate chronic white matter microangiopathy. The possibility of a focal acute ischemic process cannot be ruled out on the basis of this study. US RUQ abdomen imited imaging due to body habitus. No gallstones but the patient is tender over the gallbladder. CBD ( 1cm) mildly prominent without definite choledocholithiasis. Chest x ray- no acute cardiopulmonary findings: Chest pain / unstable angina Etiology in this case is likely unstable angina with symptoms of chest discomfort associated with dyspnea given her positive risk factors, smoking, type 2 diabetes uncontrolled, hyperlipidemia, hypertension. She needs to be risk stratified. Patient also provides prior history of coronary artery disease status post stent placement in 2011? However not sure about the details. She has been taking aspirin and Plavix since then. * Continue telemetry monitoring * Serial troponin and EKGs- neg * Monitor vitals every shift * EKG showed subtle ST-T changes ST depression. * Adult Caregiver on board * Continue aspirin and Plavix. * Continue statin * Patient is n.p.o. tatyight, planning for pharmacologic stress test in the a.m. * Follow-up cardiology recommendations * Depending on neurology input, the patient would also benefit from further cardiac evaluation to rule out cardiac sources of embolic disease in view of her history of prior strokes, reportedly normal carotid artery studies Biliary colic Given her abdominal discomfort/tenderness and abnormal liver enzymes, and also She has a history of possible choledocholithiasis, and given elevation of AST, ALT, alkaline phosphatase points towards possible obstruction in the biliary system. Ultrasound abdomen, however was unremarkable. At this time, she does not appear to be septic, or has any ascending cholangitis. There is possibility of biliary colic given exacerbation of her symptoms after eating. * MRCP negative choledocholithiasis * Follow-up daily LFTs, INR. * Recommended HIDA scan if patient continues to report right upper quadrant pain. * Dr. Farooq general surgeon on board * We will monitor her off from antibiotics. * In case if he she spikes, if WBC count elevates we will treat her with antibiotics for cholangitis. * Pain management. * Continue regular diet Lower extremity weakness She also reported continued weakness of her upper and lower extremities, and had slurring of speech associated with tingling numbness sensation of her face on occasion. She also reported ataxia and imbalance while walking, which is chronic that has resulted in a mechanical fall recently. MRA head was done which showed no mass, no acute infarction or bleeding. Redemonstration of chronic infarcts in the right frontal lobe, basal ganglia, thalamus, right cerebellum. * Fall precautions * Neurochecks * Physical therapy consult Hyperlipidemia continue statin Hypertension continue amlodipine Diabetes mellitus continue insulin sliding scale and Accu-Cheks Peripheral neuropathy continue gabapentin 100 every 8hrs Anxiety continue clonazepam home dose GERD continue omeprazole daily Insomnia continue trazodone 200 at bedtime Mental health continue Seroquel home dose DVT PPx- heparin sc ccs diet Full code Problem List: 1. RUQ abdominal pain 2. Unstable angina 3. Chest pain 4. Biliary colic 5. Headache Pain Ratin Pain Location: headache Pain Goal: Remain pain free Pain Plan: Fioricet Tomorrow's Labs & Rationales: CBCs BEP LFTs Destiny Gee MD 03/06/18 1057: Attending MD Review Statement Attending Statement Attending MD Statement: examined this patient, discuss w/resident/PA/PROOF MACHINE OPERATOR SUPERVISOR, agreed w/resident/PA/PROOF MACHINE OPERATOR SUPERVISOR, reviewed EMR data (avail), discussed with nursing, amended to note Attending Assessment/Plan: Patient seen and examined. Resting comfortably and not in any acute distress. He reports feeling better. Reports her nausea is improving. Reports a right upper quadrant discomfort is also improving. On examination she is not as tender today compared to yesterday. Transaminases remain mildly elevated with no significant change from yesterday. She denies any chest pain or palpitations. She has had no events on telemetry monitoring. She remains in sinus rhythm. She continues to complain of headache. She reports no relief with use of Tylenol. She reports that the headaches have been going on daily. She was recently started on Fioricet in the outpatient for migraines. Recommendations: -The general surgery service is recommending HIDA scan for evaluation of biliary function. However given her improvement this may be done elective part of the surgical service. -The cardiology service is recommending a nuclear stress test tomorrow. -Keep n.p.o. past midnight. I do not believe that both studies can be done on the same day. Recommend follow-up with the cardiology service regarding timing of the nuclear stress test. -She has mild leukocytosis today. She is afebrile. She is hemodynamically stable. Repeat CBC in a.m.
--- NOTE | 2018-03-06 11:27 | PN- Cardiology ---
Subjective Subjective: * Patient complains of diarrhea and RUQ abdominal discomfort. No chest discomfort or shortness of breath. * sinus rhythm * Mildly increased WBC count with increased hepatic transaminases. Objective Vital Signs and I&Os Vital Signs Date Time Temp Pulse Resp B/P B/P Pulse O2 O2 Flow FiO2 Mean Ox Delivery Rate 03/06 0903 140/68 03/06 0638 97.6 71 18 146/96 99 Room Air 03/05 2203 97.5 85 18 130/94 95 03/05 1329 99.0 98 17 140/90 94 Room Air Intake & Output 03/06 1600 03/06 0803/06 0000 03/05 1600 03/05 0803/05 0000 Intake Total 50 400 410 120 120 Output Total Balance 50 400 410 120 120 Intake, IV 10 Intake, Oral 50 400 400 120 120 Patient 245 lb 243 lb Weight Physical Exam: General: WD/obese female in NAD; alert and oriented x 3 HEENT: NC/AT, PERRL, EOMI Neck: no JVD Heart: RRR Lungs: clear bilaterally Abdomen: soft, obese, NT, +ve bowel sounds Extremities: no edema Assessment/Plan Assessment/Plan * This patient has chest discomfort along with some non-specific ST change on her ECG. She has ruled out for an AL by cardiac enzymes but may well have unstable angina. Continue her current cardiac medications and plan on risk stratification with a pharmacologic stress test tomorrow. Continue telemetry? Yes
[2018-03-06 14:20] VITALS: BP 130/80
[2018-03-06 22:33] VITALS: BP 140/92
[2018-03-07 06:08] VITALS: BP 120/60
[2018-03-07 08:16] LABS: PT 10.2 SEC (9.4-12.5)
[2018-03-07 08:18] LABS: ABSOLUTE BASOPHIL COUNT 0.1 /CUMM (0.0-0.2); ABSOLUTE EOSINOPHIL COUNT 0.3 /CUMM (0.0-0.7); ABSOLUTE GRANULOCYTE CT 6.6 /CUMM (1.4-6.5); ABSOLUTE LYMPH COUNT 3.2 /CUMM (1.2-3.4); ABSOLUTE MONOCYTE COUNT 0.8 /CUMM (0.10-0.60); BASOPHIL % 0.5 % (0.0-2.0); EOSINOPHIL % 3.1 % (0-5); GRANULOCYTE % 59.9 % (42.2-75.2); MEAN CORPUSCULAR HGB 24.3 PG (27.0-31.0); MEAN CORPUSCULAR HGB CONC 31.5 G/DL (33.0-37.0); MEAN PLATELET VOLUME 9.6 FL (7.4-10.4); PLATELET COUNT 387 /CUMM (130-400); RBC DISTRIBUTION WIDTH 15.9 % (11.5-14.5); RED BLOOD CELL CT 4.42 /CUMM (4.20-5.40); WHITE BLOOD CELL COUNT 11.1 /CUMM (4.8-10.8)
--- NOTE | 2018-03-07 08:31 | PN- Housestaff ---
Shayne Jaime 03/07/18 0831: Subjective Follow-up For: 1. Unstable angina 2. bILIARY COLIC Complaints: pain scale (0-10) Tele-Events Since Last Visit: Normal sinus rhythm with no acute events Subjective: Patient was seen and examined this morning. She is alert awake and oriented to time place and person. Patient has minimal abdominal pain this morning. Denies any nausea and vomiting this morning. Denies any more episodes of diarrhea. No melena, hematochezia, hematemesis. Patient denied any chest pain, palpitations, short of breath this morning. Denies lower extremity bilateral weakness. No focal neurologic deficits. Denied any speech changes, gait changes. Reports headache, getting relief with Fioricet. Vitals stable afebrile, heart rate 89, respiratory rate 18, blood pressure 140/ 80, saturating at 98 on room air. Review of Systems Constitutional: Reports: see HPI. Objective Last 24 Hrs of Vital Signs/I&O Vital Signs Date Time Temp Pulse Resp B/P B/P Pulse O2 O2 Flow FiO2 Mean Ox Delivery Rate 03/07 0858 130/72 03/07 0608 97.7 64 20 120/60 89 / 2233 98.7 89 15 140/92 94 /08 1420 98.5 71 20 130/80 98 Intake & Output 03/07 1600 03/07 0800 03/07 0000 Intake Total 220 440 Output Total Balance 220 440 Intake, Oral 220 440 Patient 107.161 kg 113.03 kg Weight Physical Exam General Appearance: Alert, Oriented X3, Cooperative, No Acute Distress Other Physical Findings: Skin: No rashes, no breakdown; HEENT: PERRLA, EOMI; Neck: Supple, No JVD; No cervical lymphadenopathy; CVS: Reg Rate, Normal S1,S2, No MGR; Resp: Normal air entry, no ronchi/rales; Abdomen: Soft, RUQ tenderness Normal Bowel Sounds. Neuro: Normal Speech, Strength 5/5 b/l x 4 extremities, Sensation intact L<R, CN III-XII NL, Reflexes 2+, cerebellar tests negative, Extremities: No cyanosis, no pedal edema. Current Medications: Current Medications Sig/Sonia Start time Last Medication Dose Route Stop Time Status Admin Acetaminophen 650 MG Q8P PRN 03/04 0115 AC 03/04 PO 1037 Acetaminophen/ 1 TAB Q6-PRN PRN 03/06 0900 AC 03/06 Butalbital/Caffeine PO 0959 Amlodipine Besylate 10 MG DAILY 03/05 09 AC 03/07 PO 0858 Aspirin Buffered 81 MG DAILY 03/04 09 AC 03/07 PO 0856 Atorvastatin Calcium 40 MG 1700 07/07 1700 AC 03/06 PO 1550 Budesonide/ 2 PUF BID 03/04 09 AC 03/07 Formoterol Fumarate INH 0858 Clonazepam 1 MG .STK-MED ONE 03/06 211 DC PO 03/06 2117 Clonazepam 1 MG .[BIDP] PRN 03/04 0100 AC 03/07 PO 03/11 0059 0704 Clopidogrel Bisulfate 75 MG DAILY 03/04 900 AC 03/07 PO 0856 Dipyridamole 60 MG ONE ONE 03/07 1200 AC Dextrose/Water 28 ML IV 03/07 1201 Gabapentin 100 MG Q8 03/04 0600 AC 03/07 PO 0643 Heparin Sodium 5,000 UNIT Q8 03/04 0600 AC 03/07 (Porcine) SC 0709 Insulin Aspart 0 TIDAC 03/04 1700 DC 03/06 SC 1651 Insulin Detemir 15 UNITS BID 03/04 0900 AC 03/07 SC 0857 Insulin Human Regular 0 Q6 03/07 1000 AC 03/07 SC 1056 Montelukast Sodium 10 MG 2200 03/04 2200 AC 03/06 PO 2110 Morphine Sulfate 4 MG .STK-MED ONE 03/06 2100 DC IM 03/06 2101 Morphine Sulfate 2 MG Q4P PRN 03/04 0100 AC 03/06 IV 2103 Nicotine 21 MG DAILY 03/04 09 AC 03/07 TOP 0856 Nitroglycerin 0.5 GM Q6 03/07 1200 AC TOP Nitroglycerin 0.5 GM Q6 03/04 0600 DC 03/07 TOP 0713 Pantoprazole Sodium 40 MG DAILY 03/04 900 AC 03/07 IV 0856 Quetiapine Fumarate 200 MG DAILY 03/04 900 AC 03/07 PO 0856 Quetiapine Fumarate 400 MG QPM / 0130 AC 03/06 PO 2111 Sertraline HCl 100 MG DAILY 03/07 0949 AC 03/07 PO 1057 Trazodone HCl 200 MG AT BEDTIME 03/07 2100 AC PO Trazodone HCl 100 MG ONCE ONE 03/06 2200 DC PO 03/06 2201 Trazodone HCl 200 MG AT BEDTIME 03/06 2145 DC PO Trazodone HCl 100 MG AT BEDTIME 03/04 2100 DC 03/06 PO 0 Last 24 Hrs of Lab/Gal Results Last 24 Hrs of Labs/Mics: Laboratory Tests 03/07/18 0656: Anion Gap 13, Estimated GFR 51 L, BUN/Creatinine Ratio 14.5, Total Bilirubin 0.2, Direct Bilirubin 0.2, AST 54 H, ALT 62 H, Alkaline Phosphatase 256 H, Total Protein 7.0, Albumin 4.0, PT 10.2, INR 0.94, CBC w Diff NO MAN DIFF REQ, RBC 4.42, MCV 77.0 L, MCH 24.3 L, MCHC 31.5 L, RDW 15.9 H, MPV 9.6, Gran % 59.9, Lymphocytes % 29.1, Monocytes % 7.4, Eosinophils % 3.1, Basophils % 0.5, Absolute Granulocytes 6.6 H, Absolute Lymphocytes 3.2, Absolute Monocytes 0.8 H, Absolute Eosinophils 0.3, Absolute Basophils 0.1 Assessment/Plan Assessment: Ms Bolden is a 58 year old woman w/a PMHx of 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 2011), CVA x 3 episodes( last admission to 11/14) was sent to the ER by her PCP w/ a chief concern of "elevated heart rate", and evaluation of chest pain. Vitals-temperature 98.5, pulse rate 89, respiration 18, blood pressure 160/103-- 141/78, 98% on room air. Pertinent Lab findings: WBC 11.5 ( granulocytes 65%), platelet count 464 Hemoglobin 11.8, MCV 76.9, hematocrit 37.3 (microcytic) Sodium 142, potassium 3.7, magnesium 1.3, bicarbonate 27, anion gap 15, Renal function-BUN 12, creatinine 1.0. Glucose 203, hemoglobin A1c 8.4 (02/11/2018). Liver chemistries-AST 67, AST 94, alkaline phosphatase 282 (baseline 67 u/l on 10/2017), Tbili 0.3 Albumin 4.7, INR pending Troponin I-0.01, 0.01 D-dimer less than 200. TSH 2.01 EKG revealed normal sinus rhythm, no acute ST-T wave changes. Ct head: no acute intracranial hemorrhage or territorial infarction. Chronic infarcts in the deep soriano matter structures and right cerebellar hemisphere, as noted on prior imaging with moderate chronic white matter microangiopathy. The possibility of a focal acute ischemic process cannot be ruled out on the basis of this study. US RUQ abdomen imited imaging due to body habitus. No gallstones but the patient is tender over the gallbladder. CBD ( 1cm) mildly prominent without definite choledocholithiasis. Chest x ray- no acute cardiopulmonary findings: Chest pain / unstable angina Etiology in this case is likely unstable angina with symptoms of chest discomfort associated with dyspnea given her positive risk factors, smoking, type 2 diabetes uncontrolled, hyperlipidemia, hypertension. She needs to be risk stratified. Patient also provides prior history of coronary artery disease status post stent placement in 2011? However not sure about the details. She has been taking aspirin and Plavix since then. * Continue telemetry monitoring * Serial troponin and EKGs- neg * Monitor vitals every shift * EKG showed subtle ST-T changes ST depression. * Electrical Experimental Mechanic on board * Continue aspirin and Plavix. * Continue statin * Patient is n.p.o. planning for pharmacologic stress test today * Follow-up cardiology recommendations * Depending on neurology input, the patient would also benefit from further cardiac evaluation to rule out cardiac sources of embolic disease in view of her history of prior strokes, reportedly normal carotid artery studies Biliary colic Given her abdominal discomfort/tenderness and abnormal liver enzymes, and also She has a history of possible choledocholithiasis, and given elevation of AST, ALT, alkaline phosphatase points towards possible obstruction in the biliary system. Ultrasound abdomen, however was unremarkable. At this time, she does not appear to be septic, or has any ascending cholangitis. There is possibility of biliary colic given exacerbation of her symptoms after eating. * MRCP negative for choledocholithiasis * Follow-up daily LFTs, INR. * Recommended HIDA scan if patient continues to report right upper quadrant pain. * Dr. Farooq general surgeon on board * We will monitor her off from antibiotics. * In case if he she spikes, if WBC count elevates we will treat her with antibiotics for cholangitis. * Pain management. * Continue regular diet Lower extremity weakness She also reported continued weakness of her upper and lower extremities, and had slurring of speech associated with tingling numbness sensation of her face on occasion. She also reported ataxia and imbalance while walking, which is chronic that has resulted in a mechanical fall recently. MRA head was done which showed no mass, no acute infarction or bleeding. Redemonstration of chronic infarcts in the right frontal lobe, basal ganglia, thalamus, right cerebellum. * Fall precautions * Neurochecks * Physical therapy consult Hyperlipidemia continue statin Hypertension continue amlodipine Diabetes mellitus continue insulin sliding scale and Accu-Cheks Peripheral neuropathy continue gabapentin 100 every 8hrs Anxiety continue clonazepam home dose GERD continue omeprazole daily Insomnia continue trazodone 200 at bedtime Mental health continue Seroquel home dose, zoloft. DVT PPx- heparin sc ccs diet Full code Problem List: 1. RUQ abdominal pain 2. Unstable angina 3. Chest pain Pain Ratin Pain Location: abdomen Pain Goal: Remain pain free Pain Plan: tylenol Tomorrow's Labs & Rationales: cbc bep Charla Owens 03/07/18 1122: Attending MD Review Statement Attending Statement Attending MD Statement: examined this patient, discuss w/resident/PA/BULK PICKER, agreed w/resident/PA/BULK PICKER, reviewed EMR data (avail), discussed with nursing, discussed with case mgmt Attending Assessment/Plan: Chest pain- pt going for stress test today. will f/u on results. cardiology following. appreciate their input. Abdominal pian- pt doing ok and plan is to get HIDA scan per surgery recommendations. currently pain free. MRCP showing no stones in cbd or gall bladder. d/w pt the care plan.
[2018-03-07] MEDS ORDERED: ZOLOFT100 M1 PO (09:49)
--- NOTE | 2018-03-07 14:21 | IV DIPYRIDAMOLE NUCLEAR STRESS ---
Clinical Diagnosis: CAD, HTN Server Engineer: Mayelin Nelson IV DIPYRIDAMOLE INFUSED: 60 mg IV AMINOPHYLLINE INFUSED: 0 mg PATIENT WEIGHT: 243 lbs INTERPRETATION: The patient's baseline EKG showed sinus rhythm with nonspecific ST depression in the lateral leads at 75 BPM. Baseline B/P 132/78. The patient received 60 mg of dipyridamole infused intravenously over a 4 minute period. TC99M Myoview was injected after dipyridamole infusion. The patient tolerated the infusion well. There were no EKG changes seen following pharmacologic infusion. Arrhythmias: None IMPRESSION: The test was supervised by the interpreting Television Installer Helper, who was in attendance during the entire test. No EKG evidence of stress induced myocardial ischemia. See separately dictated Nuclear Report.
[2018-03-07 14:49] VITALS: BP 138/76
--- NOTE | 2018-03-07 17:21 | PN- Cardiology ---
Subjective Subjective: * No chest discomfort, shortness of breath, lightheadedness or palpitations. * sinus rhythm * Normal troponin * No biliary obstruction on MRI Objective Vital Signs and I&Os Vital Signs Date Time Temp Pulse Resp B/P B/P Pulse O2 O2 Flow FiO2 Mean Ox Delivery Rate 03/07 1449 98.0 80 20 138/76 95 Room Air 03/07 0858 130/72 03/07 0608 97.7 64 20 120/60 89 03/06 2233 98.7 89 15 140/92 94 Intake & Output 03/07 1600 03/07 0800 03/07 0000 03/06 1600 03/06 0803/06 0000 Intake Total 400 220 440 400 50 400 Output Total Balance 400 220 440 400 50 400 Intake, Oral 400 220 440 400 50 400 Patient 236 lb 249 lb 245 lb Weight Physical Exam: General: WD/obese female in NAD; alert and oriented x 3 HEENT: NC/AT, PERRL, EOMI Neck: no JVD Heart: RRR Lungs: clear bilaterally Abdomen: soft, obese, NT, +ve bowel sounds Extremities: no edema Assessment/Plan Assessment/Plan * This patient has chest discomfort along with some non-specific ST change on her ECG. She has ruled out for an IA by cardiac enzymes but may well have unstable angina. Continue her current cardiac medications. * Stress test results are pending. Continue telemetry? Yes
[2018-03-07 23:03] VITALS: BP 140/60
[2018-03-08 07:01] VITALS: BP 124/76
--- NOTE | 2018-03-08 08:18 | PN- Housestaff ---
Shayne Jaime 03/08/18 0817: Subjective Follow-up For: 1. Unstable angina 2. bILIARY COLIC Complaints: pain scale (0-10), no complaints Tele-Events Since Last Visit: Normal sinus rhythm with no acute events Subjective: Patient was seen and examined this morning. She is alert awake and oriented to time place and person. Patient has minimal abdominal pain this morning. Denies any nausea and vomiting this morning. Denies any more episodes of diarrhea. No melena, hematochezia, hematemesis. Patient denied any chest pain, palpitations, short of breath this morning. Denies lower extremity bilateral weakness. No focal neurologic deficits. Denied any speech changes, gait changes. Reports headache, getting relief with Fioricet. Vitals stable afebrile, heart rate 89, respiratory rate 18, blood pressure 140/ 80, saturating at 98 on room air Review of Systems Constitutional: Reports: see HPI. Objective Last 24 Hrs of Vital Signs/I&O Vital Signs Date Time Temp Pulse Resp B/P B/P Pulse O2 O2 Flow FiO2 Mean Ox Delivery Rate 03/08 0858 128/70 03/08 0701 98.0 82 18 124/76 92 Room Air 03/07 2303 97.7 86 20 140/60 92 03/07 1449 98.0 80 20 138/76 95 Room Air Intake & Output 03/08 1600 03/08 0800 03/08 0000 Intake Total 120 120 Output Total Balance 120 120 Intake, Oral 120 120 Patient 113.03 kg Weight Physical Exam General Appearance: Alert, Oriented X3, Cooperative, No Acute Distress Other Physical Findings: Skin: No rashes, no breakdown; HEENT: PERRLA, EOMI; Neck: Supple, No JVD; No cervical lymphadenopathy; CVS: Reg Rate, Normal S1,S2, No MGR; Resp: Normal air entry, no ronchi/rales; Abdomen: Soft, RUQ tenderness Normal Bowel Sounds. Neuro: Normal Speech, Strength 5/5 b/l x 4 extremities, Sensation intact L<R, CN III-XII NL, Reflexes 2+, cerebellar tests negative, Extremities: No cyanosis, no pedal edema. Current Medications: Current Medications Sig/Sonia Start time Last Medication Dose Route Stop Time Status Admin Acetaminophen 650 MG Q8P PRN 03/04 0115 AC 03/04 PO 1037 Acetaminophen/ 1 TAB Q6-PRN PRN 03/06 900 AC 03/06 Butalbital/Caffeine PO 0959 Amlodipine Besylate 10 MG DAILY 03/05 900 AC 03/08 PO 0858 Aspirin Buffered 81 MG DAILY 03/04 900 AC 03/08 PO 0857 Atorvastatin Calcium 40 MG 1700 03/05 1700 AC 03/07 PO 1745 Budesonide/ 2 PUF BID 03/04 900 AC 03/08 Formoterol Fumarate INH 0859 Clonazepam 1 MG .[BIDP] PRN 03/04 010 AC 03/07 PO 03/11 Clopidogrel Bisulfate 75 MG DAILY 03/04 900 AC 03/08 PO 0857 Diphenhydramine HCl 25 MG ONCE ONE 03/07 2030 DC 03/07 PO 03/07 Gabapentin 100 MG Q8 03/04 600 AC 03/08 PO 06 Heparin Sodium 5,000 UNIT Q8 03/04 600 AC 03/08 (Porcine) SC 0616 Insulin Aspart 0 TIDAC 03/07 1315 AC 03/08 SC 1228 Insulin Detemir 15 UNITS BID 03/04 900 AC 03/08 SC 0857 Montelukast Sodium 10 MG 2200 03/04 2200 AC 03/07 PO 2051 Morphine Sulfate 2 MG Q4P PRN 03/04 010 AC 03/07 IV 202 Nicotine 21 MG DAILY 03/04 900 AC 03/08 TOP 0858 Nitroglycerin 0.5 GM Q6 03/07 1200 AC 03/08 TOP 0616 Omeprazole 40 MG DAILY AC 03/08 07 AC 03/08 PO 0616 Pantoprazole Sodium 40 MG DAILY 03/04 900 DC 03/07 IV 0856 Quetiapine Fumarate 200 MG DAILY 03/04 900 AC 03/08 PO 0857 Quetiapine Fumarate 400 MG QPM 03/04 0130 AC 03/07 PO 2051 Sertraline HCl 100 MG DAILY 03/07 0949 AC 03/08 PO 08 Trazodone HCl 200 MG AT BEDTIME 03/07 2100 AC 03/07 PO 2051 Last 24 Hrs of Lab/Gal Results Last 24 Hrs of Labs/Mics: Laboratory Tests 03/08/18 0620: Anion Gap 13, Estimated GFR 57 L, BUN/Creatinine Ratio 14.0, Total Bilirubin 0.2, Direct Bilirubin 0.2, AST 49 H, ALT 62 H, Alkaline Phosphatase 241 H, Total Protein 6.7, Albumin 3.8, CBC w Diff NO MAN DIFF REQ, RBC 4.23, MCV 77.1 L, MCH 24.2 L, MCHC 31.4 L, RDW 16.2 H, MPV 9.7, Gran % 57.7, Lymphocytes % 32.2, Monocytes % 5.9, Eosinophils % 3.5, Basophils % 0.7, Absolute Granulocytes 6.9 H, Absolute Lymphocytes 3.9 H, Absolute Monocytes 0.7 H, Absolute Eosinophils 0.4, Absolute Basophils 0.1 Assessment/Plan Assessment: Ms Bolden is a 58 year old woman w/a PMHx of 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 2011), CVA x 3 episodes( last admission to 11/14) was sent to the ER by her PCP w/ a chief concern of "elevated heart rate", and evaluation of chest pain. Vitals-temperature 98.5, pulse rate 89, respiration 18, blood pressure 160/103-- 141/78, 98% on room air. Pertinent Lab findings: WBC 11.5 ( granulocytes 65%), platelet count 464 Hemoglobin 11.8, MCV 76.9, hematocrit 37.3 (microcytic) Sodium 142, potassium 3.7, magnesium 1.3, bicarbonate 27, anion gap 15, Renal function-BUN 12, creatinine 1.0. Glucose 203, hemoglobin A1c 8.4 (02/11/2018). Liver chemistries-AST 67, AST 94, alkaline phosphatase 282 (baseline 67 u/l on 10/2017), Tbili 0.3 Albumin 4.7, INR pending Troponin I-0.01, 0.01 D-dimer less than 200. TSH 2.01 EKG revealed normal sinus rhythm, no acute ST-T wave changes. Ct head: no acute intracranial hemorrhage or territorial infarction. Chronic infarcts in the deep soriano matter structures and right cerebellar hemisphere, as noted on prior imaging with moderate chronic white matter microangiopathy. The possibility of a focal acute ischemic process cannot be ruled out on the basis of this study. US RUQ abdomen imited imaging due to body habitus. No gallstones but the patient is tender over the gallbladder. CBD ( 1cm) mildly prominent without definite choledocholithiasis. Chest x ray- no acute cardiopulmonary findings: Chest pain / unstable angina Etiology in this case is likely unstable angina with symptoms of chest discomfort associated with dyspnea given her positive risk factors, smoking, type 2 diabetes uncontrolled, hyperlipidemia, hypertension. Patient also provides prior history of coronary artery disease status post stent placement in 2011? However not sure about the details. She has been taking aspirin and Plavix since then. * Continue telemetry monitoring * Serial troponin and EKGs- neg * Monitor vitals every shift * EKG showed subtle ST-T changes ST depression. * Regional Owner Operator Truck Driver on board * Continue aspirin and Plavix. * Continue statin Normal Persantine stress and resting myocardial perfusion study. Minimal abnormality suggested in the apical anterior wall on both the stress and rest images is likely due to attenuation by overlying breast soft tissues, and there is no associated wall motion abnormality. Left ventricular wall motion and ejection fraction are normal. Biliary colic Given her abdominal discomfort/tenderness and abnormal liver enzymes, and also She has a history of possible choledocholithiasis, and given elevation of AST, ALT, alkaline phosphatase points towards possible obstruction in the biliary system. Ultrasound abdomen, however was unremarkable. At this time, she does not appear to be septic, or has any ascending cholangitis. There is possibility of biliary colic given exacerbation of her symptoms after eating. * MRCP negative for choledocholithiasis * Follow-up daily LFTs, INR. * Recommended HIDA scan as outpatient given her biliary colic as patient underwent nuclear stress test 03/07/2018 * Dr. Garcia general surgeon on board * We will monitor her off from antibiotics. * In case if he she spikes, if WBC count elevates we will treat her with antibiotics for cholangitis. * Pain management. * Continue regular diet Lower extremity weakness She also reported continued weakness of her upper and lower extremities, and had slurring of speech associated with tingling numbness sensation of her face on occasion. She also reported ataxia and imbalance while walking, which is chronic that has resulted in a mechanical fall recently. MRA head was done which showed no mass, no acute infarction or bleeding. Redemonstration of chronic infarcts in the right frontal lobe, basal ganglia, thalamus, right cerebellum. * Fall precautions * Neurochecks * Physical therapy consult Hyperlipidemia continue statin Hypertension continue amlodipine Diabetes mellitus continue insulin sliding scale and Accu-Cheks Peripheral neuropathy continue gabapentin 100 every 8hrs Anxiety continue clonazepam home dose GERD continue omeprazole daily Insomnia continue trazodone 200 at bedtime Mental health continue Seroquel home dose, zoloft. DVT PPx- heparin sc ccs diet Full code Problem List: 1. RUQ abdominal pain 2. Unstable angina 3. Chest pain 4. Biliary colic 5. Headache Pain Ratin Pain Location: abdomen Pain Goal: Remain pain free Pain Plan: tylenol Tomorrow's Labs & Rationales: cbc bep Charla Owens 03/08/18 1307: Attending MD Review Statement Attending Statement Attending MD Statement: examined this patient, discuss w/resident/PA/RIP MACHINE OPERATOR, agreed w/resident/PA/RIP MACHINE OPERATOR, reviewed EMR data (avail), discussed with nursing, discussed with case mgmt Attending Assessment/Plan: Stress test showing no ischemic changes and wall motion abnormality. plan is to dc her and have her f/u with dr garcia and will get HIDA scan as an outpatient. see dc summary for more details.
[2018-03-08 08:19] LABS: ABSOLUTE BASOPHIL COUNT 0.1 /CUMM (0.0-0.2); ABSOLUTE EOSINOPHIL COUNT 0.4 /CUMM (0.0-0.7); ABSOLUTE GRANULOCYTE CT 6.9 /CUMM (1.4-6.5); ABSOLUTE LYMPH COUNT 3.9 /CUMM (1.2-3.4); ABSOLUTE MONOCYTE COUNT 0.7 /CUMM (0.10-0.60); BASOPHIL % 0.7 % (0.0-2.0); EOSINOPHIL % 3.5 % (0-5); GRANULOCYTE % 57.7 % (42.2-75.2); HEMATOCRIT 32.6 % (37-47); MEAN CORPUSCULAR HGB 24.2 PG (27.0-31.0); MEAN CORPUSCULAR HGB CONC 31.4 G/DL (33.0-37.0); MEAN CORPUSCULAR VOLUME 77.1 FL (81.0-99.0); MEAN PLATELET VOLUME 9.7 FL (7.4-10.4); PLATELET COUNT 420 /CUMM (130-400); RBC DISTRIBUTION WIDTH 16.2 % (11.5-14.5); RED BLOOD CELL CT 4.23 /CUMM (4.20-5.40)
--- NOTE | 2018-03-08 10:21 | NUCLEAR MEDICINE REPORT ---
PERSANTINE STRESS AND RESTING SPECT MYOCARDIAL PERFUSION IMAGING STUDY WITH GATED SPECT IMAGES: CLINICAL INDICATION: Chest pain. PROCEDURE: Regional myocardial perfusion was assessed using a 1 day protocol. Stress images were obtained on 03/07/2018 following the intravenous administration of 27.7 mCi Tc 99m Myoview. Stress consisted of 60 mg Persantine given intravenously. Following the sestamibi injection, 125 mg aminophylline was given intravenously. Rest images were obtained 03/07/2018 following the intravenous administration of 42.5 mCi Technetium 99m Myoview. Single photon emission tomographic (SPECT) images were obtained. SPECT images were acquired in a 64 x 64 matrix of 64 projections over 180 degrees. These were reconstructed into standard short axis, horizontal and vertical long axis cardiac projections. FINDINGS: The post stress images demonstrate the left ventricular chamber to be normal in size. There is a small region of mildly decreased activity involving the apical anterior wall. This is probably due to attenuation by adjacent breast soft tissues, and the latter can be visualized on review of the raw acquired projections. The activity in the other tamez appears normal. The resting images are similar in appearance to the post stress images with slightly less decreased activity in the apical anterior wall and on the post stress images, but this difference is likely due to slight difference in positioning between the stress and rest images and is not likely a significant change. The activity in the other tamez appears normal and is unchanged from the post stress images.. The stress images were obtained using a gated SPECT technique, which permits visualization of wall motion and calculation of the left ventricular ejection fraction. No left ventricular wall motion abnormalities are noted, and in particular, the apical anterior wall shows excellent wall motion. The calculated left ventricular ejection fraction is 62% on the stress study. No previous study is available for comparison. IMPRESSION: Probable normal Persantine stress and resting myocardial perfusion study. Minimal abnormality suggested in the apical anterior wall on both the stress and rest images is likely due to attenuation by overlying breast soft tissues, and there is no associated wall motion abnormality. Left ventricular wall motion and ejection fraction are normal. This Critical Result was discussed with Dr. Galeano at 6:43 PM on 03/07/2018 and it was ascertained that the content and urgency of the report was understood at the time of direct communication.
[2018-03-08 14:00] VITALS: BP 140/80
--- NOTE | 2018-03-08 15:25 | PN- Cardiology ---
Subjective Subjective: * no chest pain or shortness of breath * sinus rhythm * no reversible ischemia on stress test with BTA artifact Objective Vital Signs and I&Os Vital Signs Date Time Temp Pulse Resp B/P B/P Pulse O2 O2 Flow FiO2 Mean Ox Delivery Rate 03/08 0858 128/70 03/08 0701 98.0 82 18 124/76 92 Room Air 03/07 2303 97.7 86 20 140/60 92 Intake & Output 03/08 1600 03/08 0800 03/08 0000 03/07 1600 03/07 0800 03/07 0000 Intake Total 120 120 400 220 440 Output Total Balance 120 120 400 220 440 Intake, Oral 120 120 400 220 440 Patient 249 lb 236 lb 249 lb Weight Physical Exam: General: WD/obese female in NAD; alert and oriented x 3 HEENT: NC/AT, PERRL, EOMI Neck: no JVD Heart: RRR Lungs: clear bilaterally Abdomen: soft, obese, NT, +ve bowel sounds Extremities: no edema Assessment/Plan Assessment/Plan * This patient has chest discomfort along with some non-specific ST change on her ECG. She has ruled out for an PR by cardiac enzymes. Continue her current cardiac medications. * A small fixed defect was noted on her stress test that is likely breast tissue attenuation artifact. No ischemia was identified. * Would quickly reduce nicotine usage. Continue current cardiac medications for now and have patient follow up in the office in one week. We will reassess at that time. * Okay for discharge from a cardiac standpoint. Continue telemetry? No
== END 2018-03-08 18:24 | DRG 303 ==
LOC: ERH 16:19 → ERHI 21:20 → 1NO 21:20 → ENRESERV 22:42 → 1NO 23:56 → ENPENDDIS 03-08 15:34 → ENTRNSPT 03-08 17:55 → 1NO 03-08 18:24 → CMPTRNSPT 03-08 18:31
PROVIDERS: Hospitalist; Internal Medicine Endocrinology, Diabetes & Metabolism; Physician Assistant Medical; Student in an Organized Health Care Education/Training Program
PROC: 4A12XM4 Monitoring of Cardiac Stress, External Approach (ICD-10-PCS; principal; 2018-03-07)
PROC: 3E033HZ Introduction of Radioactive Substance into Peripheral Vein, Percutaneous Approach (ICD-10-PCS; principal; 2018-03-07)
DX: I25.110 Atherosclerotic heart disease of native coronary artery with unstable angina pectoris (principal); K80.50 Calculus of bile duct without cholangitis or cholecystitis without obstruction; E66.01 Morbid (severe) obesity due to excess calories; Z68.39 Body mass index [BMI] 39.0-39.9, adult; Z98.61 Coronary angioplasty status; G47.33 Obstructive sleep apnea (adult) (pediatric); Z79.4 Long term (current) use of insulin; Z88.6 Allergy status to analgesic agent; Z88.8 Allergy status to other drugs, medicaments and biological substances; E11.40 Type 2 diabetes mellitus with diabetic neuropathy, unspecified; F32.9 Major depressive disorder, single episode, unspecified; Z79.51 Long term (current) use of inhaled steroids; E78.5 Hyperlipidemia, unspecified; I10 Essential (primary) hypertension; Z86.73 Personal history of transient ischemic attack (TIA), and cerebral infarction without residual deficits; F41.9 Anxiety disorder, unspecified; K21.9 Gastro-esophageal reflux disease without esophagitis; G47.00 Insomnia, unspecified
CPT/HCPCS: 1NP; 70552; 74181; 36415; 36592; 70553; 71045; 78452; 82436; 93005; 93010; 93016; 93017; A9502; A9579; J0131; J1245; J1644; J1815; J2405; J3490; J7042

== ENCOUNTER 2018-03-12 14:31 | Emergency (ER) | payer OTHER ==
[~2018-03-12] VITALS: Ht 165.1 cm; Wt 108.9 kg
[~2018-03-12 14:31] MED LIST changes: +ADVAIR 100-501 EACH INH; +CALCIPOTRIENE60 G1 TOP; +HYDROCODON-ACE1 EAC2 PO; +MONTELUKAST SOD10 M1 PO; +ZOLOFT100 M1 PO
[2018-03-12 14:43] VITALS: BP 116/83
--- NOTE | 2018-03-12 14:44 | ED THROAT/DENTAL COMPLAINT ---
History of Present Illness General Chief Complaint: Sore Throat, Dental Pain Stated Complaint: DENTAL PAIN Source: patient Exam Limitations: no limitations Vital Signs & Intake/Output Vital Signs & Intake/Output Vital Signs Date Time Temp Pulse Resp B/P B/P Pulse O2 O2 Flow FiO2 Mean Ox Delivery Rate 03/12 1443 98.6 108 18 116/83 98 Room Air Allergies Coded Allergies: lithium (Intermediate, "OUT OF MY MIND" 02/12/17) ibuprofen (Mild, HIVES 02/12/17) adhesive tape (PAPER TAPE CAUSES A RASH - OKAY WITH OTHER TAPES PER PT 05/23/17 ) divalproex sodium (From DEPAKOTE) (HALLUCINATE 11/05/17) tramadol (RASH 11/05/17) Reconcile Medications Amlodipine Besylate 10 MG TABLET 1 TAB PO DAILY HEART (Reported) . Aspirin (Ecotrin*) 81 MG TABLET.DR 81 MG PO DAILY HEART Atorvastatin Calcium 80 MG TABLET 40 MG PO 1700 STROKE PREVENTION Calcipotriene 0.005 % CREAM..G. 1 BILL TOP DAILY FEET (Reported) Canagliflozin (Invokana) (Unknown Strength) TABLET (Unknown Dose) PO TID DM ( Reported) Clonazepam 1 MG TABLET 1 TAB PO BIDP PRN Anxiety (Reported) Clopidogrel Bisulfate (Plavix) 75 MG TABLET 75 MG PO DAILY STROKE PREVENTION Cyclosporine (Restasis) 0.05 % DROPERETTE 1 GTT OPH BID eyes (Reported) Fluticasone-Salmeterol (Advair 100-50 Diskus) 100 MCG-50 MCG/DOSE BLST.W.DEV 1 PUF INH BID RESP. (Reported) Gabapentin 100 MG CAPSULE 100 MG PO Q8 NEUROPATHY Insulin Detemir (Levemir) 100 UNIT/ML VIAL 46 UNITS SC QPM DM (Reported) Insulin Lispro (Humalog Kwikpen U-100) (Unknown Strength) INSULN.PEN 12 UNITS SC TIDAC DM (Reported) Metformin HCl 500 MG TABLET 1 TAB PO BID DIABETES (Reported) Montelukast Sodium 10 MG TABLET 1 TAB PO DAILY ALLERGIES/RESP (Reported) Nicotine (Nicotine Patch) 21 MG/24 HOUR PATCH.TD24 21 MG TOP DAILY smoking cessation Omeprazole 20 MG CAPSULE.DR 40 MG PO DAILY AC ACID REFLUX Polycarbophil (Fiber) (Unknown Strength) TABLET (Unknown Dose) PO DAILY SUPPLEMENT (Reported) Quetiapine Fumarate (Seroquel) 100 MG TABLET 2 TAB PO DAILY MENTAL HEATLH ( Reported) Quetiapine Fumarate (Seroquel) 200 MG TABLET 2 TAB PO QHS MENTAL HEALTH ( Reported) Sertraline HCl (Zoloft) 100 MG TABLET 1 TAB PO DAILY DEPRESSION (Reported) Trazodone HCl 100 MG TABLET 2 TAB PO QHS MENTAL HEALTH AND SLEEP (Reported) Vit C/E/Zn/Coppr/Lutein/Zeaxan (Preservision Areds 2 Softgel) 250-200-40 CAPSULE 1 CAP PO BID SUPPLEMENT (Reported) Triage Nurses Notes Reviewed? yes Onset: Gradual Duration: getting worse Timing: recent history Severity: severe Severity Numbers: 7 HPI: Patient is a 58-year-old female who presents emergency room with concerns of a known chronic right lower molar chipped tooth where she is concerned that she has an infected gum near the region for the past 2 days patient has been complaining of swelling and pain. Patient denies any new mechanism of injury denies any difficulty swallowing or breathing denies any fever chills Past History Medical History Any Pertinent Medical History? 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 FATHER (History of cancer). Hx Contributory? No Review of Systems Review of Systems Constitutional: Reports: see HPI. EENTM: Reports: see HPI, tooth pain. Respiratory: Reports: no symptoms. Cardiovascular: Reports: no symptoms. GI: Reports: no symptoms. Genitourinary: Reports: no symptoms. Musculoskeletal: Reports: no symptoms. Skin: Reports: no symptoms. Neurological/Psychological: Reports: no symptoms. Hematologic/Endocrine: Reports: no symptoms. Immunologic/Allergic: Reports: no symptoms. All Other Systems: Reviewed and Negative Physical Exam Physical Exam General Appearance: no apparent distress, alert, comfortable Head: atraumatic Eyes: Bilateral: normal appearance. Mouth/Throat: pharynx normal Neck: normal inspection, supple Cardiovascular/Respiratory: no respiratory distress Neurologic/Psych: no motor/sensory deficits, awake Skin: intact, normal color Diagram Dental: 1) Noted dental tenderness and caries with lateral gum swelling and tenderness no active discharge Core Measures ACS in differential dx? No Sepsis Present: No Sepsis Focused Exam Completed? No Progress Differential Diagnosis: carious tooth, epiglottitis, Ludwigs angina, meningitis, odontogenic abscess, lizzy-tonsillar abscess, pharyngeal for. body, stomatitis/ gingivitis, strep pharyngitis, tooth fracture Plan of Care: Patient has concerns of dental caries and gum abscess, oropharynx was unremarkable Departure Departure Disposition: HOME OR SELF CARE Condition: Stable Clinical Impression Primary Impression: Gum abscess Secondary Impressions: Pain, dental Referrals: Doris George MD (PCP/Family) Additional Instructions: As discussed follow-up with a list of dental providers given TO YOU in the emergency room on Wednesday, please begin the prescription clindamycin and Percocet for pain. Prescription is waiting at [facility]. If symptoms worsen return to emergency room. Departure Forms: Customer Survey General Discharge Information Prescriptions: Current Visit Scripts Clindamycin HCl (Cleocin HCl) 1 CAP PO TID #30 CAP Oxycodone HCl/Acetaminophen (Percocet 5-325 MG Tablet) 1 TAB PO BID PRN PAIN #10 TAB
[2018-03-12] MEDS ORDERED: CLEOCIN HCL300 M1 PO (14:52)
[2018-03-12] MEDS ORDERED: PERCOCET 5-3251 EACH PO (14:52)
== END 2018-03-12 15:06 ==
LOC: ERH 14:31
DX: K05.319 Chronic periodontitis, localized, unspecified severity (principal)

== ENCOUNTER 2018-03-20 12:21 | Emergency (ER) | payer OTHER ==
[~2018-03-20] VITALS: Ht 165.1 cm; Wt 109.8 kg
[~2018-03-20 12:21] MED LIST changes: +CLEOCIN HCL300 M1 PO
--- NOTE | 2018-03-20 13:02 | ED MVC/FALL/TRAUMA COMPLAINT ---
History of Present Illness General Chief Complaint: Fall Stated Complaint: FALL/LFT KNEE AND TOE PAIN Source: patient, old records Exam Limitations: no limitations Vital Signs & Intake/Output Vital Signs & Intake/Output Vital Signs Date Time Temp Pulse Resp B/P B/P Pulse O2 O2 Flow FiO2 Mean Ox Delivery Rate 03/20 1308 Room Air 03/20 1236 98.7 03/20 1233 98.7 78 18 179/97 99 Room Air Allergies Coded Allergies: lithium (Intermediate, "OUT OF MY MIND" 02/12/17) ibuprofen (Mild, HIVES 02/12/17) adhesive tape (PAPER TAPE CAUSES A RASH - OKAY WITH OTHER TAPES PER PT 05/23/17 ) clindamycin (SICK TO HER STOMACH 03/20/18) divalproex sodium (From DEPAKOTE) (HALLUCINATE 11/05/17) tramadol (RASH 11/05/17) Reconcile Medications Amlodipine Besylate 10 MG TABLET 1 TAB PO DAILY HEART (Reported) . Aspirin (Ecotrin*) 81 MG TABLET.DR 81 MG PO DAILY HEART Atorvastatin Calcium 80 MG TABLET 40 MG PO 1700 STROKE PREVENTION Calcipotriene 0.005 % CREAM..G. 1 BILL TOP DAILY FEET (Reported) Canagliflozin (Invokana) (Unknown Strength) TABLET (Unknown Dose) PO TID DM ( Reported) Clindamycin HCl (Cleocin HCl) 300 MG CAPSULE 1 CAP PO TID GUM ABSCESS Clonazepam 1 MG TABLET 1 TAB PO BIDP PRN Anxiety (Reported) Clopidogrel Bisulfate (Plavix) 75 MG TABLET 75 MG PO DAILY STROKE PREVENTION Cyclosporine (Restasis) 0.05 % DROPERETTE 1 GTT OPH BID eyes (Reported) Fluticasone-Salmeterol (Advair 100-50 Diskus) 100 MCG-50 MCG/DOSE BLST.W.DEV 1 PUF INH BID RESP. (Reported) Gabapentin 100 MG CAPSULE 100 MG PO Q8 NEUROPATHY Insulin Detemir (Levemir) 100 UNIT/ML VIAL 46 UNITS SC QPM DM (Reported) Insulin Lispro (Humalog Kwikpen U-100) (Unknown Strength) INSULN.PEN 12 UNITS SC TIDAC DM (Reported) Metformin HCl 500 MG TABLET 1 TAB PO BID DIABETES (Reported) Montelukast Sodium 10 MG TABLET 1 TAB PO DAILY ALLERGIES/RESP (Reported) Nicotine (Nicotine Patch) 21 MG/24 HOUR PATCH.TD24 21 MG TOP DAILY smoking cessation Omeprazole 20 MG CAPSULE.DR 40 MG PO DAILY AC ACID REFLUX Polycarbophil (Fiber) (Unknown Strength) TABLET (Unknown Dose) PO DAILY SUPPLEMENT (Reported) Quetiapine Fumarate (Seroquel) 100 MG TABLET 2 TAB PO DAILY MENTAL HEATLH ( Reported) Quetiapine Fumarate (Seroquel) 200 MG TABLET 2 TAB PO QHS MENTAL HEALTH ( Reported) Sertraline HCl (Zoloft) 100 MG TABLET 1 TAB PO DAILY DEPRESSION (Reported) Trazodone HCl 100 MG TABLET 2 TAB PO QHS MENTAL HEALTH AND SLEEP (Reported) Vit C/E/Zn/Coppr/Lutein/Zeaxan (Preservision Areds 2 Softgel) 250-200-40 CAPSULE 1 CAP PO BID SUPPLEMENT (Reported) Triage Note: PT STATES SHE FELL AND HURT HER TOE AND BILAT KNEES. PT STATES SHE TRIPPED UP THE STAIRS. Triage Nurses Notes Reviewed? yes HPI: 58F PMH COPD, degenerative disc disease, GERD, ROBBIN, type 2 DM, HTN, CAD S/P stent (? 2011), CVA x 3 episodes comes in with fall. Last night she was walking up the stairs to her house and tripped up the stairs, falling forward. She landed primarily on her left knee and stubbed her left first toe. She may have hit her head, but she did not lose consciousness. She sat on the steps for a bit and righted herself, and got up and walked into the house. She has abrasions on her left knee and left foot. She comes in today with pain of the left knee and foot, as well as some nausea. She is able to walk unassisted. She denies fever, chills, vision changes, hearing changes, Past History Travel History Traveled to [place] past 21 day No Medical History Any Pertinent Medical History? 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 FATHER (History of cancer). Hx Contributory? No Review of Systems Review of Systems Constitutional: Reports: no symptoms. Eyes: Reports: no symptoms. Ears, Nose, Throat, Mouth: Reports: no symptoms. Respiratory: Reports: no symptoms. Cardiovascular: Reports: no symptoms. Gastrointestinal/Abdominal: Reports: no symptoms. Genitourinary: Reports: no symptoms. Musculoskeletal: Reports: no symptoms. Skin: Reports: no symptoms. Neurological/Psychological: Reports: no symptoms. All Other Systems: Reviewed and Negative Physical Exam Physical Exam General Appearance: well developed/nourished, no apparent distress Head: atraumatic, normal appearance Eyes: Bilateral: normal appearance, PERRL, EOMI. Ears, Nose, Throat, Mouth: hearing grossly normal, moist mucous membrane Neck: normal inspection, supple, full range of motion Respiratory: normal breath sounds, chest non-tender, no respiratory distress Cardiovascular: regular rate/rhythm Gastrointestinal: soft, non-tender Back: normal inspection, normal range of motion Extremities: normal range of motion, tender left knee and left first toe Neurologic/Psych: awake, alert, oriented x 3, normal mood/affect Skin: abrasians to left knee and left foot Core Measures ACS in differential dx? No CVA/TIA Diagnosis No Sepsis Present: No Sepsis Focused Exam Completed? No Progress Differential Diagnosis: abd injury, C/T/L spine injury, ext injury Plan of Care: Orders Procedure Date/time Status Durable Medical Equipment 03/20 1413 Active Current Medications Sig/Sonia Start time Last Medication Dose Stop Time Status Admin Oxycodone/ 1 TAB ONCE ONE 03/20 1415 UNVr Acetaminophen 03/20 1416 (Percocet) Diagnostic Imaging: Viewed by Me: Radiology Read. Discussed w/RAD: Radiology Read. Radiology Impression: PATIENT: ROYA HAAS PRESENT AGE: 58 PATIENT ACCOUNT NO: [id number] : 60 LOCATION: [facility] ORDERING PHYSICIAN: Tao JENNINGS SERVICE DATE: 03/20/18-1234 EXAM TYPE: RAD - XRY-FOOT COMPLETE, LEFT; XRY-KNEE COMPLETE LEFT; XRY-LUMBOSACRAL SPINE 4 VIEWS EXAMINATION: XR SPINE, LUMBOSACRAL XR KNEE, LEFT XR FOOT, LEFT CLINICAL INFORMATION: 58-year-old female, status post fall, complaining of left knee, left foot and lower back pain. COMPARISON: Left knee done on 02/21/2018, and lumbosacral spine done on 01/15/2018. TECHNIQUE: AP, lateral, and oblique views of the left foot. 4 views of the left knee and 2 views, total of 7 images of the lumbosacral spine were obtained. FINDINGS: LUMBOSACRAL SPINE: There are 6 nonrib -bearing lumbar vertebrae present. The lowermost lumbar vertebra shows partial sacralization on the left. The height of the lumbar vertebrae is well- maintained. The posterior appendages are intact. Decreased disc height, endplate osteophyte formation, consistent with mild multilevel degenerative spondylosis related changes are noted at the L5 L6, and L3-L4, unchanged. No significant change. The visualized part of the lower sacrum shows radiolucency at the sacrococcygeal junction region, seen only on the lateral projection, may represent a subtle nondisplaced fracture in this region. The patient has point tenderness to this lesion, follow-up CT scan may be considered for further clarification. Please note that this area was not included on prior lumbosacral spine radiograph done on 01/15/2018. LEFT KNEE: The bony alignment is intact. The cortices are intact. Mild osteoarthrosis is noted at the medial compartment of the left knee. Enthesopathy is noted at the insertional site of the quadriceps tendon as well as infrapatellar tendon to the patella. Mild osteoarthrosis is also noted at the patellofemoral joint. LEFT FOOT: The bony alignment is intact. The cortices are intact. Articular margins, joint space appear unremarkable except for minimal osteoarthrosis at the first MTP joint. Minimal enthesopathy is noted at the insertional site of the Achilles tendon to the calcaneus and a tiny posterior plantar calcaneal spur. IMPRESSION: 1. No radiographic evidence of any fracture identified within the lumbar spine. The lower part of the sacrum near the sacrococcygeal junction shows radiolucency, seen only on the lateral projection, a possibility of subtle fracture in this region is not excluded. Please note that this area was not included within the [id number] on prior lumbosacral spine done on 01/15/2018. The patient has focal point tenderness, follow-up noncontrast CT scan of the sacrum, coccyx may be considered for further full detail evaluation. 2. No radiographic evidence of any fracture, subluxation, or dislocation is seen within the left knee and left foot. DICTATED BY: Ryan Gilbert MD DATE/TIME DICTATED:03/20/181328 FINAL DRESSING CUTTER:MARY GRACE DATE/TIME TRANSCRIBED:03/20/181328 CONFIDENTIAL, DO NOT COPY WITHOUT APPROPRIATE AUTHORIZATION. <Electronically signed in Other Vendor System> SIGNED BY: Ryan Gilbert MD 03/20/18 140 Departure Departure Disposition: HOME OR SELF CARE Condition: Stable Clinical Impression Primary Impression: Knee contusion Qualifiers: Encounter type: initial encounter Laterality: left Qualified Code: S80.02XA - Contusion of left knee, initial encounter Secondary Impressions: Knee abrasion Qualifiers: Encounter type: initial encounter Laterality: left Qualified Code: S80.212A - Abrasion, left knee, initial encounter Sprain of foot, left Qualifiers: Encounter type: initial encounter Qualified Code: S93.602A - Unspecified sprain of left foot, initial encounter Referrals: Doris George MD (PCP/Family) Additional Instructions: Follow up with your PCP. Stay off your foot if you can. Ice/Motrin for pain. Departure Forms: Customer Survey General Discharge Information
--- NOTE | 2018-03-20 14:07 | RADIOLOGY REPORT ---
EXAMINATION: XR SPINE, LUMBOSACRAL XR KNEE, LEFT XR FOOT, LEFT CLINICAL INFORMATION: 58-year-old female, status post fall, complaining of left knee, left foot and lower back pain. COMPARISON: Left knee done on 02/21/2018, and lumbosacral spine done on 01/15/2018. TECHNIQUE: AP, lateral, and oblique views of the left foot. 4 views of the left knee and 2 views, total of 7 images of the lumbosacral spine were obtained. FINDINGS: LUMBOSACRAL SPINE: There are 6 nonrib-bearing lumbar vertebrae present. The lowermost lumbar vertebra shows partial sacralization on the left. The height of the lumbar vertebrae is well-maintained. The posterior appendages are intact. Decreased disc height, endplate osteophyte formation, consistent with mild multilevel degenerative spondylosis related changes are noted at the L5 L6, and L3-L4, unchanged. No significant change. The visualized part of the lower sacrum shows radiolucency at the sacrococcygeal junction region, seen only on the lateral projection, may represent a subtle nondisplaced fracture in this region. The patient has point tenderness to this lesion, follow-up CT scan may be considered for further clarification. Please note that this area was not included on prior lumbosacral spine radiograph done on 01/15/2018. LEFT KNEE: The bony alignment is intact. The cortices are intact. Mild osteoarthrosis is noted at the medial compartment of the left knee. Enthesopathy is noted at the insertional site of the quadriceps tendon as well as infrapatellar tendon to the patella. Mild osteoarthrosis is also noted at the patellofemoral joint. LEFT FOOT: The bony alignment is intact. The cortices are intact. Articular margins, joint space appear unremarkable except for minimal osteoarthrosis at the first MTP joint. Minimal enthesopathy is noted at the insertional site of the Achilles tendon to the calcaneus and a tiny posterior plantar calcaneal spur. IMPRESSION: 1. No radiographic evidence of any fracture identified within the lumbar spine. The lower part of the sacrum near the sacrococcygeal junction shows radiolucency, seen only on the lateral projection, a possibility of subtle fracture in this region is not excluded. Please note that this area was not included within the [id number] on prior lumbosacral spine done on 01/15/2018. The patient has focal point tenderness, follow-up noncontrast CT scan of the sacrum, coccyx may be considered for further full detail evaluation. 2. No radiographic evidence of any fracture, subluxation, or dislocation is seen within the left knee and left foot.
[2018-03-20 15:03] VITALS: BP 170/90
== END 2018-03-20 15:07 ==
LOC: ERH 12:21
DX: S80.02XA Contusion of left knee, initial encounter (principal); S80.212A Abrasion, left knee, initial encounter; S93.602A Unspecified sprain of left foot, initial encounter; W10.9XXA Fall (on) (from) unspecified stairs and steps, initial encounter; Y93.01 Activity, walking, marching and hiking; Y92.009 Unspecified place in unspecified non-institutional (private) residence as the place of occurrence of the external cause
CPT/HCPCS: 72110; 73562-LT; 73630-LT

== ENCOUNTER 2018-05-16 14:57 | Emergency (ER) | payer OTHER ==
[2018-05-16 16:55] LABS: ABSOLUTE BASOPHIL COUNT 0.1 /CUMM (0.0-0.2); ABSOLUTE EOSINOPHIL COUNT 0.2 /CUMM (0.0-0.7); ABSOLUTE GRANULOCYTE CT 10.1 /CUMM (1.4-6.5); ABSOLUTE LYMPH COUNT 3.5 /CUMM (1.2-3.4); ABSOLUTE MONOCYTE COUNT 0.7 /CUMM (0.10-0.60); BASOPHIL % 0.4 % (0.0-2.0); EOSINOPHIL % 1.1 % (0-5); HEMATOCRIT 32.7 % (37-47); MEAN CORPUSCULAR HGB 23.5 PG (27.0-31.0); MEAN CORPUSCULAR HGB CONC 31.4 G/DL (33.0-37.0); MEAN CORPUSCULAR VOLUME 74.7 FL (81.0-99.0); MEAN PLATELET VOLUME 8.1 FL (7.4-10.4); PLATELET COUNT 642 /CUMM (130-400); RBC DISTRIBUTION WIDTH 16.9 % (11.5-14.5); RED BLOOD CELL CT 4.37 /CUMM (4.20-5.40); WHITE BLOOD CELL COUNT 14.6 /CUMM (4.8-10.8)
[2018-05-16 17:03] LABS: GRANULOCYTE % 69.4 % (42.2-75.2)
--- NOTE | 2018-05-16 18:42 | CT SCAN REPORT ---
EXAMINATION: CT ABDOMEN AND PELVIS WITHOUT CONTRAST CLINICAL INFORMATION: Right upper quadrant pain. COMPARISON: MRI abdomen 03/04/2018. Ultrasound of abdomen 03/03/2018 TECHNIQUE: Multidetector volumetric imaging was performed from the superior aspect of the liver through the pubic symphysis. Sagittal and coronal reformatted images were obtained on the technologist's workstation. DLP: 1213.96 mGy-cm FINDINGS: LUNG BASES: The visualized lung bases are unremarkable. LIVER, GALLBLADDER, AND BILIARY TREE: The liver is normal in size, shape, and attenuation. No focal hepatic lesion or biliary ductal dilatation is present. The right lobe of liver is elongated measuring 20 cm in length, Marcelino's configuration. There is no calcified gallstone within the gallbladder. No edema around the gallbladder. No gallbladder distention. There is no bile duct dilatation. PANCREAS: Unremarkable. SPLEEN: Unremarkable. ADRENAL GLANDS: Unremarkable. KIDNEYS AND URETERS: The kidneys are normal in size, shape, and attenuation. No hydronephrosis, hydroureter, or calculi seen. No perinephric stranding. BLADDER: Unremarkable. GASTROINTESTINAL TRACT: The small and large bowel are unremarkable. The appendix is unremarkable. ABDOMINAL WALL: No significant hernia is appreciated. LYMPH NODES: Normal. VASCULAR: Unremarkable. PELVIC VISCERA: Unremarkable. OSSEOUS STRUCTURES: Degenerative disc disease of the spine. There is multilevel vacuum disc phenomena endplate spurring and facet joint arthrosis of the lower thoracic and lumbar spine. There is a partial transitional L5 vertebrae. The left transverse process articulates with the sacrum IMPRESSION: There is no acute abnormality of the abdomen or the pelvis.
--- NOTE | 2018-05-16 19:08 | ED GI/GU/ABDOMINAL COMPLAINT ---
History of Present Illness General Chief Complaint: Abdominal Pain/Flank Pain Stated Complaint: UPPER RT ABD PAIN Source: patient, old records Exam Limitations: no limitations Vital Signs & Intake/Output Vital Signs & Intake/Output Vital Signs Date Time Temp Pulse Resp B/P B/P Pulse O2 O2 Flow FiO2 Mean Ox Delivery Rate 05/16 2030 98.7 77 18 160/88 97 05/16 2000 Room Air 05/16 1906 77 18 168/92 98 05/16 1527 97.8 90 20 170/103 93 Allergies Coded Allergies: lithium (Intermediate, "OUT OF MY MIND" 02/12/17) ibuprofen (Mild, HIVES 02/12/17) adhesive tape (PAPER TAPE CAUSES A RASH - OKAY WITH OTHER TAPES PER PT 05/23/17 ) clindamycin (SICK TO HER STOMACH 03/20/18) divalproex sodium (From DEPAKOTE) (HALLUCINATE 11/05/17) tramadol (RASH 11/05/17) Reconcile Medications Amlodipine Besylate 10 MG TABLET 1 TAB PO DAILY HEART (Reported) . Aspirin (Ecotrin*) 81 MG TABLET.DR 81 MG PO DAILY HEART Atorvastatin Calcium 80 MG TABLET 40 MG PO 1700 STROKE PREVENTION Calcipotriene 0.005 % CREAM..G. 1 BILL TOP DAILY FEET (Reported) Canagliflozin (Invokana) (Unknown Strength) TABLET (Unknown Dose) PO TID DM ( Reported) Clindamycin HCl (Cleocin HCl) 300 MG CAPSULE 1 CAP PO TID GUM ABSCESS Clonazepam 1 MG TABLET 1 TAB PO BIDP PRN Anxiety (Reported) Clopidogrel Bisulfate (Plavix) 75 MG TABLET 75 MG PO DAILY STROKE PREVENTION Cyclosporine (Restasis) 0.05 % DROPERETTE 1 GTT OPH BID eyes (Reported) Fluticasone-Salmeterol (Advair 100-50 Diskus) 100 MCG-50 MCG/DOSE BLST.W.DEV 1 PUF INH BID RESP. (Reported) Gabapentin 100 MG CAPSULE 100 MG PO Q8 NEUROPATHY Insulin Detemir (Levemir) 100 UNIT/ML VIAL 46 UNITS SC QPM DM (Reported) Insulin Lispro (Humalog Kwikpen U-100) (Unknown Strength) INSULN.PEN 12 UNITS SC TIDAC DM (Reported) Metformin HCl 500 MG TABLET 1 TAB PO BID DIABETES (Reported) Montelukast Sodium 10 MG TABLET 1 TAB PO DAILY ALLERGIES/RESP (Reported) Nicotine (Nicotine Patch) 21 MG/24 HOUR PATCH.TD24 21 MG TOP DAILY smoking cessation Omeprazole 20 MG CAPSULE.DR 40 MG PO DAILY AC ACID REFLUX Oxycodone HCl/Acetaminophen (Percocet 5-325 MG Tablet) 5 MG-325 MG TABLET 1-2 TAB PO Q6P PRN PAIN Polycarbophil (Fiber) (Unknown Strength) TABLET (Unknown Dose) PO DAILY SUPPLEMENT (Reported) Quetiapine Fumarate (Seroquel) 100 MG TABLET 2 TAB PO DAILY MENTAL HEATLH ( Reported) Quetiapine Fumarate (Seroquel) 200 MG TABLET 2 TAB PO QHS MENTAL HEALTH ( Reported) Sertraline HCl (Zoloft) 100 MG TABLET 1 TAB PO DAILY DEPRESSION (Reported) Trazodone HCl 100 MG TABLET 2 TAB PO QHS MENTAL HEALTH AND SLEEP (Reported) Vit C/E/Zn/Coppr/Lutein/Zeaxan (Preservision Areds 2 Softgel) 250-200-40 CAPSULE 1 CAP PO BID SUPPLEMENT (Reported) Triage Note: PER PT RUQ ABD PAIN SINCE WEDNESDAY NO VOMITING + NAUSEA NO DIARRHEA ALSO PAIN WITH URINATION Triage Nurses Notes Reviewed? yes ? N Is pt currently ? No HPI: Patient presents with a four-day history of pain in the right upper quadrant. The pain is constant. There are no aggravating or mitigating factors. There is no radiation. The pain is sharp and stabbing in nature. She rates the pain at 8 out of 10. Positive nausea but no vomiting. Similar symptoms in the past when she was told that she might have passed a gallstone. Patient denies any fevers or chills. Past History Travel History Traveled to [place] past 21 day No Medical History Any Pertinent Medical History? 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 FATHER (History of cancer). Hx Contributory? No Review of Systems Review of Systems Constitutional: Reports: no symptoms. EENTM: Reports: no symptoms. Respiratory: Reports: no symptoms. Cardiovascular: Reports: no symptoms. GI: Reports: see HPI, abdominal pain, nausea. Genitourinary: Reports: no symptoms. Musculoskeletal: Reports: no symptoms. Skin: Reports: no symptoms. Neurological/Psychological: Reports: no symptoms. Hematologic/Endocrine: Reports: no symptoms. Immunologic/Allergic: Reports: no symptoms. All Other Systems: Reviewed and Negative Physical Exam Physical Exam General Appearance: well developed/nourished, alert, awake, mild distress Head: atraumatic, normal appearance Eyes: Bilateral: PERRL, EOMI, other (aNICTERIC). Ears, Nose, Throat, Mouth: hearing grossly normal, DRY MUCOUS MEMBRANES Neck: normal inspection, supple, full range of motion Respiratory: normal breath sounds, chest non-tender, no respiratory distress, lungs clear Cardiovascular: regular rate/rhythm, normal peripheral pulses Gastrointestinal: normal bowel sounds, soft, no organomegaly, TENDER IN THE RIGHT UPPER QUADRANT, NO GUARDING, NO REBOUND Back: normal inspection, normal range of motion, NO cva TENDERNESS Extremities: normal range of motion Neurologic/Psych: no motor/sensory deficits, awake, alert, oriented x 3, normal gait, normal mood/affect Skin: intact, normal color, warm/dry Core Measures ACS in differential dx? No Sepsis Present: No Sepsis Focused Exam Completed? No Progress Differential Diagnosis: AMI, biliary colic, cholecystitis, diverticulitis, gastritis, hepatitis, pancreatitis, peptic ulcer, PUD/GERD, DKA Plan of Care: Orders Procedure Date/time Status TROPONIN LEVEL 05/16 2000 Complete EKG 05/16 2000 Active URINALYSIS 05/16 1527 Complete TROPONIN LEVEL 05/16 1527 Complete LIPASE 05/16 1527 Complete LACTIC ACID 05/16 1527 Complete COMPREHENSIVE METABOLIC PANEL 05/16 1527 Complete CBC WITHOUT DIFFERENTIAL 05/16 1527 Complete EKG 05/16 1527 Active Laboratory Tests 05/16/18 2020: Troponin I < 0.01 05/16/18 1935: Urine Color YEL, Urine Clarity CLEAR, Urine pH 6.5, Ur Specific [place] 1.015, Urine Protein NEG, Urine Ketones NEG, Urine Nitrite NEG, Urine Bilirubin NEG, Urine Urobilinogen 0.2, Ur Leukocyte Esterase NEG, Ur Microscopic EXAM NOT REQUIRED, Urine Hemoglobin NEG, Urine Glucose NEG 05/16/18 1827: Lactic Acid Cancelled 05/16/18 1620: Anion Gap 13, Estimated GFR 57 L, BUN/Creatinine Ratio 14.0, Glucose 118 H, Lactic Acid 1.1, Calcium 10.2, Total Bilirubin 0.3, AST 24, ALT 31, Alkaline Phosphatase 125, Troponin I < 0.01, Total Protein 7.9, Albumin 4.7, Globulin 3.2 , Albumin/Globulin Ratio 1.5, Lipase 170, CBC w Diff NO MAN DIFF REQ, RBC 4.37, MCV 74.7 L, MCH 23.5 L, MCHC 31.4 L, RDW 16.9 H, MPV 8.1, Gran % 69.4, Lymphocytes % 24.0, Monocytes % 5.1, Eosinophils % 1.1, Basophils % 0.4, Absolute Granulocytes 10.1 H, Absolute Lymphocytes 3.5 H, Absolute Monocytes 0.7 H, Absolute Eosinophils 0.2, Absolute Basophils 0.1 Initial ED EKG: SR WITH NSSTT CHANGES AND ST DEPRESSION, SEEN PREVIOSLY ON PRIOR EKG FROM 03/16, NO CHANGE Prior EKG: unchanged Repeat EKG: unchanged Rhythm Strip: normal sinus rhythm Comments: Patient cannot wait for the second set of enzymes to come back. Patient has been having this pain constantly for the past 4 days. Departure Departure Disposition: HOME OR SELF CARE Condition: Stable Clinical Impression Primary Impression: Upper abdominal pain, unspecified Referrals: Doris ALAMO,Doris (PCP/Family) Oseas ALAMO,Alphonse Rivera Additional Instructions: Take Percocet as needed for pain. Follow-up with Dr. Farooq. Return if symptoms worsen or for any concerns. Departure Forms: Customer Survey General Discharge Information Prescriptions: Current Visit Scripts Oxycodone HCl/Acetaminophen (Percocet 5-325 MG Tablet) 1-2 TAB PO Q6P PRN PAIN #20 TAB
[2018-05-16 20:30] VITALS: BP 160/88
[2018-05-16] MEDS ORDERED: PERCOCET 5-3251 EACH PO (20:31)
== END 2018-05-16 20:51 ==
LOC: ERH 14:57
PROVIDERS: Physician Assistant Medical
DX: R10.11 Right upper quadrant pain (principal); R11.0 Nausea; I10 Essential (primary) hypertension; E11.9 Type 2 diabetes mellitus without complications; F17.210 Nicotine dependence, cigarettes, uncomplicated; Z79.82 Long term (current) use of aspirin; Z79.4 Long term (current) use of insulin
CPT/HCPCS: 74176; 81003; 93005; 93010